=== PATIENT | female | born 1945 | race American Indian/Alaskan Native ===

== ENCOUNTER 2020-07-16 14:05 | Inpatient (IN) | payer MEDICARE ==
[2020-07-16] MEDS ORDERED: LORazepam 2 MG/ML VIAL IV ONE (14:09)
[2020-07-16] MEDS ORDERED: MAGNESIUM SULFATE 2 GM/50 ML BAG IV ONE (14:09)
[2020-07-16] MEDS ORDERED: FUROSEMIDE 40 MG/4 ML INJ IV ONE (14:09)
--- NOTE | 2020-07-16 14:09 | Emergency Department Report ---
ED Shortness of Breath HPI - General Stated Complaint: HOWARD Time Seen by Provider: 07/16/20 14:05 Source: patient, EMS Mode of arrival: Ambulatory Limitations: No Limitations - History of Present Illness Initial Comments: Chief complaint: "Please help me. I cannot breathe." HPI: This is a female with history of diabetes mellitus, CHF, asthma, coronary artery disease status post CABG, above normal BMI who presents with severe shortness of breath and productive cough which began 2 days ago. Patient received 5 mg albuterol via EMS. She has severe shortness of breath. She d enies cough. She requires 4 L nasal cannula at home. Patient would not tolerate CPAP. Patient lives with her daughters. She did not receive a Covid vaccine. She did not have COVID 19 infection. She denies recent hospitalization. MD Complaint: shortness of breath -: Gradual, This morning Severity: severe Consistency: constant Improves With: nothing Worsens With: nothing Known History Of: asthma, congestive heart failure Associated Symptoms: denies other symptoms Treatments Prior to Arrival: oxygen, bronchodilator (Albuterol 5 mg) - Related Data Home Oxygen Therapy: Yes Home Oxygen Amount: 4 Liters Allergies Allergy/AdvReac Type Severity Reaction Status Date / Time azithromycin Allergy Unknown Verified 07/16/20 14:10 codeine Allergy Unknown Verified 07/16/20 14:10 Sulfa (Sulfonamide Allergy Unknown Verified 07/16/20 14:11 Antibiotics) ED Review of Systems ROS: Stated complaint: HOWARD Other details as noted in HPI Comment: All other systems reviewed and negative Constitutional: denies: chills, fever Respiratory: shortness of breath. denies: cough, wheezing Cardiovascular: denies: chest pain Gastrointestinal: denies: abdominal pain, nausea, vomiting Neurological: denies: headache ED Past Medical Hx - Past Medical History Previous Medical History?: Yes Hx Hypertension: Yes Hx Congestive Heart Failure: Yes Hx Diabetes: Yes Hx Asthma: Yes - Surgical History Past Surgical History?: Yes Hx Open Heart Surgery: Yes - Family History Family history: hypertension - Social History Smoking Status: Never Smoker Substance Use Type: None ED Physical Exam - General General appearance: alert, anxious, in distress, other (Accessory muscle use, obese habitus, wet productive cough, patient coughed upd dark thick brown sputum ) - Head Head exam: Present: atraumatic, normocephalic - Eye Eye exam: Present: normal appearance - ENT ENT exam: Present: mucous membranes moist - Neck Neck exam: Present: normal inspection - Respiratory Respiratory exam: Present: rales, rhonchi, accessory muscle use, decreased breath sounds. Absent: respiratory distress, wheezes, stridor, prolonged expiratory - Cardiovascular Cardiovascular Exam: Present: normal rhythm, tachycardia, normal heart sounds. Absent: systolic murmur, diastolic murmur, rubs, gallop - GI/Abdominal GI/Abdominal exam: Present: soft, normal bowel sounds. Absent: distended, tenderness, guarding, rebound - Extremities Exam Extremities exam: Present: pedal edema, other (Both legs wrapped with bandage Boris dressing from knee to toes) - Neurological Exam Neurological exam: Present: alert, oriented X3 - Psychiatric Psychiatric exam: Present: agitated, anxious - Skin Skin exam: Present: warm, dry, intact, normal color. Absent: rash ED Course Vital Signs 07/16/20 07/16/20 14:31 16:00 Temperature 100 F H Pulse Rate 139 H 115 H Respiratory 20 25 H Rate Blood Pressure 131/100 O2 Sat by Pulse 100 99 Oximetry - Reevaluation(s) Reevaluation #1: 07/16/20 15:47 Nurse informed me that patient is admitted respiratory acidosis hypercapnia. I convince patient to allow BiPAP placement. She agreed. She is much more calm and less anxious actually sleeping after Ativan. However she is easily arousable. Reevaluation #2: 07/16/20 15:56 I assisted with application of noninvasive positive pressure ventilation. Discussed settings with respiratory therapist. - ABG Interpretation Ph: 7.3 PCO2: 59 PO2: 163 Interpretation: respiratory acidosis ED Medical Decision Making - Lab Data Result diagrams: 07/16/20 15:21 07/16/20 15:21 - EKG Data -: EKG Interpreted by Me EKG shows normal: sinus rhythm, axis, intervals, QRS complexes Rate: tachycardia - EKG Data Interpretation: nonspecific ST-T wave mili 07/16/20 14:54 EKG obtained 1405 EKG interpreted by me Sinus tachycardia rate 145 bpm normal axis normal QTC nonspecific T wave pattern upsloping ST depression in inferior leads - Radiology Data Radiology results: report reviewed Patient Name: RAFFI HEATON Gender: Female Date of : 1945 Home Phone: Referring Provider: STEPHANIE LINNETTA Organization: [facility] Accession Number: [id number] Requested Date: July 16, 2020 14:09 Report Status: Final Requested Procedure: 1 Procedure Description: XR chest 1V ap Modality: XR Findings Reporting MD: Emeterio Ruiz Dictation Time: July 16, 2020 14:07 Principal Technical Specialist: Not available [employer] Date: CHEST 1 VIEW 07/16/2020 2:15 PM INDICATION / CLINICAL INFORMATION: severe dyspnea hx of CHF asthma. COMPARISON: None available. FINDINGS: SUPPORT DEVICES: None. HEART / MEDIASTINUM: Cardiomegaly. LUNGS / PLEURA: There is central vascular congestion and mild interstitial prominence. No pneumothorax. ADDITIONAL FINDINGS: No significant additional findings. IMPRESSION: 1. Cardiomegaly with central vascular congestion and mild interstitial prominence just above congestive failure. Signer Name: Emeterio Ruiz MD Signed: 07/16/2020 2:07 PM Workstation Name: [facility] - Medical Decision Making Acute respiratory failure with fever productive cough. Differential diagnosis includes bacterial pneumonia versus atypical pneumonia considering pandemic organism COVID-19. Patient received ceftriaxone. Macrolide held due to azithromycin allergy. Patient received Decadron anticipating or suspecting COVID-19 infection. Patient require noninvasive positive pressure change for hypercapnia. All Covid markers are elevated. Findings of acute heart failure include BNP, rales on exam, vascular congestion. Diuresis with furosemide initiated in emergency department. Considering patient's work of breathing, persistent tachycardia, elderly age severe obesity, patient is admitted to the ICU in guarded condition. Critical Care Time: Yes Critical care time in (mins) excluding proc time.: 40 Critical care attestation.: If time is entered above; I have spent that time in minutes in the direct care of this critically ill patient, excluding procedure time. 40 minutes of critical care time excluding procedures were used in the care of the patient. I came immediately to the bedside upon patient's arrival. I obtained history from EMS at the bedside. I discussed treatment plan with the [facility] team members. I reviewed electronic record. Respiratory therapist at the bedside administered 4 L nasal cannula. Patient refused noninvasive positive pressure ventilation therapy. Patient required multiple interventions and reassessments. ED Disposition Clinical Impression: Suspected COVID-19 virus infection, Community acquired bacterial pneumonia, Acute respiratory failure with hypercapnia, Acute systolic heart failure Disposition: DC-09 OP ADMIT IP TO THIS HOSP Is pt being admited?: Yes Does the pt Need Aspirin: No Condition: Fair Referrals: ALEXX MIDDLETON MD [Primary Care Provider] - 3-5 Days
[2020-07-16] MEDS ORDERED: dexAMETHasone 20 MG/5 ML VIAL IV ONE (14:13)
[2020-07-16] MEDS ORDERED: ACETAMINOPHEN 500 MG TAB PO ONE (14:14)
[2020-07-16] MEDS ORDERED: cefTRIAXone/NS 1 GM/50 ML 1 GM/50 ML BAG IV ONE (14:23)
--- NOTE | 2020-07-16 15:11 | XRay Report ---
CHEST 1 VIEW 07/16/2020 2:15 PM INDICATION / CLINICAL INFORMATION: severe dyspnea hx of CHF asthma. COMPARISON: None available. FINDINGS: SUPPORT DEVICES: None. HEART / MEDIASTINUM: Cardiomegaly. LUNGS / PLEURA: There is central vascular congestion and mild interstitial prominence. No pneumothora x. ADDITIONAL FINDINGS: No significant additional findings. IMPRESSION: 1. Cardiomegaly with central vascular congestion and mild interstitial prominence just above congesti ve failure. Signer Name: Emeterio Ruiz MD Signed: 07/16/2020 3:07 PM Workstation Name: [id number]
[2020-07-16 15:42] LABS: Basophils # (Auto) 0.1 K/mm3 (0.0-0.1); Basophils % (Auto) 0.6 % (0.0-1.8); Eosinophils # (Auto) 0.3 K/mm3 (0.0-0.4); Eosinophils % (Auto) 2.7 % (0.0-4.3); Hematocrit 37.7 % (30.3-42.9); Hemoglobin 12.4 gm/dl (10.1-14.3); Lymphocytes # (Auto) 0.9 K/mm3 (1.2-5.4); Lymphocytes % (Auto) 8.1 % (13.4-35.0); Mean Corpuscular HGB Conc 33 % (30-34); Mean Corpuscular Volume 89 fl (79-97); Monocytes % (Auto) 8.9 % (0.0-7.3); Platelet Count 178 K/mm3 (140-440); Red Blood Count 4.26 M/mm3 (3.65-5.03); Red Cell Distribution Width 15.7 % (13.2-15.2)
[2020-07-16 16:09] LABS: Albumin 3.8 g/dL (3.9-5)
[2020-07-16 16:20] LABS: Chol/HDL Ratio 3.82 %
[2020-07-16] MEDS ORDERED: IPRATROPIUM/ALBUTEROL SULFATE 3 ML AMPUL.NEB IH ONE (21:42)
[2020-07-16] MEDS ORDERED: ONDANSETRON 4 MG/2 ML INJ IV PRN (21:51)
[2020-07-16] MEDS ORDERED: ACETAMINOPHEN 325 MG TAB PO PRN (21:51)
[2020-07-16] MEDS ORDERED: MORPHINE 2 MG/1 ML INJ IV PRN (21:51)
[2020-07-16] MEDS ORDERED: METOCLOPRAMIDE 10 MG/2 ML INJ IV PRN (21:51)
[2020-07-16] MEDS ORDERED: IPRATROPIUM/ALBUTEROL SULFATE 3 ML AMPUL.NEB IH PRN (21:55)
[2020-07-16] MEDS ORDERED: SODIUM CHLORIDE 0.9% 1000 ML 1,000 ML IV SCH (22:00)
[2020-07-16] MEDS ORDERED: ALBUTEROL 2.5 MG/3 ML NEBU IH PRN (22:07)
[2020-07-16] MEDS: FAMOTIDINE 20 MG/2 ML INJ IV SCH (22:15)
[2020-07-16] MEDS: methylPREDNISolone Sod Succinate 125 MG/2 ML INJ IV SCH (22:36)
[2020-07-17] MEDS: HYDROmorphone 1 MG/1 ML INJ IV PRN ×2 (02:35→22:28)
[2020-07-17] MEDS: methylPREDNISolone Sod Succinate 125 MG/2 ML INJ IV SCH ×3 (05:24→22:02)
--- NOTE | 2020-07-17 06:30 | History and Physical Report ---
History of Present Illness Date of examination: 07/16/20 Date of admission: 07/16/20 19:47 Chief complaint: Increasing shortness of breath for 2 days History of present illness: 74-year-old female with hypertension, type 2 diabetes, coronary artery disease, CHF, s/p CABG and morbid obesity presents with increasing shortness of breath for the last 2 days. Patient was brought in by EMS was given nebulizer treatments in the emergency transport. Patient denies cough. Patient is normally on 4 L nasal cannula oxygen at home. Refusing CPAP by EMS. Patient has also fev er. Did not have Covid vaccine or Covid infection. Lives with her daughters. Patient also wheezing. No exacerbating or relieving factors. Patient also has a small sacral wound in the sacral region and the left foot. Low-grade fever present. Home medications are not listed. - Past Medical History Previous Medical History?: Yes --Hypertension: Yes --Congestive Heart Failure: Yes --Diabetes: Yes --Asthma: Yes - Surgical History Past Surgical History?: Yes --Open Heart Surgery: Yes - Family History --hypertension - Social History Smoking Status: Never Smoker Substance Use Type: None Review of Systems ROS: Stated complaint: HOWARD Other details as noted in HPI Comment: All other systems reviewed and negative Constitutional: denies: chills, fever Respiratory: shortness of breath. denies: cough, wheezing Cardiovascular: denies: chest pain Gastrointestinal: denies: abdominal pain, nausea, vomiting Neurological: denies: headache Medications and Allergies Allergies Allergy/AdvReac Type Severity Reaction Status Date / Time azithromycin Allergy Unknown Verified 07/16/20 14:10 codeine Allergy Unknown Verified 07/16/20 14:10 Sulfa (Sulfonamide Allergy Unknown Verified 07/16/20 14:11 Antibiotics) Active Meds: Active Medications Acetaminophen (Acetaminophen 325 Mg Tab) 650 mg PO Q4H PRN PRN Reason: Pain MILD(1-3)/Fever >100.5/LEE Albuterol (Albuterol 2.5 Mg/3 Ml Nebu) 2.5 mg IH Q3HRT PRN PRN Reason: Wheezing Albuterol/Ipratropium (Ipratropium/Albuterol Sulfate 3 Ml Ampul.Neb) 1 ampul IH QIDRT LISA Famotidine (Famotidine 20 Mg/2 Ml Inj) 20 mg IV BID LISA Last Admin: 07/16/20 22:15 Dose: 20 mg Documented by: Hydromorphone HCl (Hydromorphone 1 Mg/1 Ml Inj) 0.5 mg IV Q3H PRN PRN Reason: Pain , Severe (7-10) Last Admin: 07/17/20 02:35 Dose: 0.5 mg Documented by: Levofloxacin/Dextrose (Levaquin 750mg/150ml) 750 mg in 150 mls @ 100 mls/hr IV Q48H LISA; Protocol Last Admin: 07/16/20 22:15 Dose: 100 mls/hr Documented by: Sodium Chloride (Nacl 0.9% 1000 Ml) 1,000 mls @ 75 mls/hr IV DIRECT LISA Stop: 07/17/20 10:00 Last Admin: 07/16/20 22:14 Dose: 75 mls/hr Documented by: Methylprednisolone Sodium Succinate (Methylprednisolone Sod Succinate 125 Mg/2 Ml Inj) 80 mg IV Q8HR [facility] Last Admin: 07/17/20 05:24 Dose: 80 mg Documented by: Metoclopramide HCl (Metoclopramide 10 Mg/2 Ml Inj) 10 mg IV Q6H PRN PRN Reason: Nausea And Vomiting Morphine Sulfate (Morphine 2 Mg/1 Ml Inj) 2 mg IV Q4H PRN PRN Reason: Pain, Moderate (4-6) Last Admin: 07/16/20 22:22 Dose: 2 mg Documented by: Ondansetron HCl (Ondansetron 4 Mg/2 Ml Inj) 4 mg IV Q3H PRN PRN Reason: Nausea And Vomiting Sodium Chloride (Sodium Chloride 0.9% 10 Ml Flush Syringe) 10 ml IV BID [facility] Last Admin: 07/16/20 22:15 Dose: 10 ml Documented by: Sodium Chloride (Sodium Chloride 0.9% 10 Ml Flush Syringe) 10 ml IV PRN PRN PRN Reason: LINE FLUSH Exam - Constitutional Vitals: Temp Pulse Resp BP Pulse Ox 97.8 F 103 H 21 149/74 99 07/17/20 03:28 07/17/20 06:10 07/17/20 06:10 07/17/20 06:10 07/17/20 06:10 General appearance: Present: severe distress, well-nourished - EENT Eyes: Present: PERRL ENT: hearing intact, clear oral mucosa - Neck Neck: Present: supple, normal ROM - Respiratory Respiratory effort: normal Respiratory: bilateral: CTA, rhonchi, wheezing - Cardiovascular Heart rate: 100 Rhythm: regular Heart Sounds: Present: S1 & S2. Absent: rub, click - Extremities Extremities: pulses symmetrical, No edema, abnormal (Stage I sacral decubitus ulcer. Left foot ulcer) Extremity abnormal: other (Stage I sacral decubitus ulcer, left foot ulcer) Peripheral Pulses: within normal limits - Abdominal General gastrointestinal: Present: soft, non-tender, non-distended, normal bowel sounds Female genitourinary: Present: normal - Integumentary Integumentary: Present: clear, warm, dry - Musculoskeletal Musculoskeletal: gait normal, strength equal bilaterally - Psychiatric Psychiatric: appropriate mood/affect, intact judgment & insight - Neurologic Neurologic: CNII-XII intact, moves all extremities - Allied Health Allied health notes reviewed: nursing, case management HEART Score - HEART Score History: Moderately suspicious Age: > 65 Risk factors: > 3 risk factors or hx of atherosclerotic disease Troponin: Troponin T 0.089 ng/mL (0.00-0.029) H 07/16/20 15:21 - Critical Actions Critical Actions: 4-6 pts:12-16.6% risk of adverse cardiac event. Should be admitted Results - Labs CBC & Chem 7: 07/16/20 15:21 07/16/20 15:21 Labs: Laboratory Last Values WBC 11.6 K/mm3 (4.5-11.0) H 07/16/20 15:21 RBC 4.26 M/mm3 (3.65-5.03) 07/16/20 15:21 Hgb 12.4 gm/dl (10.1-14.3) 07/16/20 15:21 Hct 37.7 % (30.3-42.9) 07/16/20 15:21 MCV 89 fl (79-97) 07/16/20 15: MCH 29 pg (28-32) 07/16/20 15:21 MCHC 33 % (30-34) 07/16/20 15:21 RDW 15.7 % (13.2-15.2) H 07/16/20 15:21 Plt Count 178 K/mm3 (140-440) 07/16/20 15:21 Lymph % (Auto) 8.1 % (13.4-35.0) L 07/16/20 15:21 Ware % (Auto) 8.9 % (0.0-7.3) H 07/16/20 15:21 Eos % (Auto) 2.7 % (0.0-4.3) 07/16/20 15:21 Baso % (Auto) 0.6 % (0.0-1.8) 07/16/20 15:21 Lymph # (Auto) 0.9 K/mm3 (1.2-5.4) L 07/16/20 15:21 Ware # (Auto) 1.0 K/mm3 (0.0-0.8) H 07/16/20 15:21 Eos # (Auto) 0.3 K/mm3 (0.0-0.4) 07/16/20 15:21 Baso # (Auto) 0.1 K/mm3 (0.0-0.1) 07/16/20 15: Seg Neutrophils % 79.7 % (40.0-70.0) H 07/16/20 15:21 Seg Neutrophils # 9.2 K/mm3 (1.8-7.7) H 07/16/20 15:21 D-Dimer 1508.10 ng/mlDDU (0-234) H 07/16/20 15:21 ABG pH 7.283 (7.320-7.450) L 07/16/20 15:02 POC ABG pCO2 59.0 mmHg (32.0-48.0) H 07/16/20 15:02 POC ABG pO2 163.4 mmHg (83-108) H 07/16/20 15:02 POC ABG HCO3 27.3 07/16/20 15:02 ABG O2 Saturation 99.3 (0-100) 07/16/20 15:02 POC ABG Base Excess -0.4 07/16/20 15:02 ABG Hemoglobin 12.3 (12.0-17.5) 07/16/20 15:02 ABG Oxyhemoglobin 98.4 (94-98) H 07/16/20 15:02 ABG Methemoglobin 0.3 (0.0-1.5) 07/16/20 15:02 ABG Sodium 138.1 mmol/L (136.0-145.0) 07/16/20 15:02 ABG Potassium 3.6 mmol/L (3.40-4.50) 07/16/20 15:02 ABG Chloride 98.0 mmol/L (98-107) 07/16/20 15:02 ABG Glucose 240 mg/dL (65-95) H 07/16/20 15:02 Carboxyhemoglobin 0.6 (0.5-1.5) 07/16/20 15:02 FiO2 % 35.0 07/16/20 15:02 Sodium 139 mmol/L (137-145) 07/16/20 15:21 Potassium 4.4 mmol/L (3.6-5.0) 07/16/20 15:21 Chloride 96.8 mmol/L (98-107) L 07/16/20 15:21 Carbon Dioxide 22 mmol/L (22-30) 07/16/20 15:21 Anion Gap 25 mmol/L 07/16/20 15:21 BUN 16 mg/dL (7-17) 07/16/20 15:21 Creatinine 1.4 mg/dL (0.6-1.2) H 07/16/20 15:21 Estimated GFR 45 ml/min 07/16/20 15:21 BUN/Creatinine Ratio 11 % 07/16/20 15:21 Glucose 211 mg/dL (65-100) H 07/16/20 15:21 Glucose 223 mg/dL (65-100) H 07/16/20 15:21 POC Glucose 286 mg/dL (70-105) H 07/16/20 23:28 Calcium 9.0 mg/dL (8.4-10.2) 07/16/20 15:21 Ferritin 443.8 ng/mL (10.0-200.0) H 07/16/20 15:21 Ferritin 459.2 ng/mL (10.0-200.0) H 07/16/20 15:21 Total Bilirubin 0.50 mg/dL (0.1-1.2) 07/16/20 15:21 AST 80 units/L (5-40) H 07/16/20 15:21 ALT 55 units/L (7-56) 07/16/20 15:21 Alkaline Phosphatase 109 units/L (35-129) 07/16/20 15:21 Lactate Dehydrogenase 557 units/L (91-180) H 07/16/20 15:21 Troponin T 0.089 ng/mL (0.00-0.029) H 07/16/20 15:21 C-Reactive Protein 5.00 mg/dL (0.00-1.30) H 07/16/20 15:21 NT-Pro-B Natriuret Pep 904.1 pg/mL (0-900) H 07/16/20 15:21 Total Protein 8.2 g/dL (6.3-8.2) 07/16/20 15:21 Albumin 3.8 g/dL (3.9-5) L 07/16/20 15:21 Albumin/Globulin Ratio 0.9 % 07/16/20 15: Triglycerides 91 mg/dL (2-149) 07/16/20 15: Cholesterol 199 mg/dL (50-199) 07/16/20 15:21 LDL Cholesterol Direct 132 mg/dL (50-130) H 07/16/20 15: HDL Cholesterol 52 mg/dL (40-59) 07/16/20 15: Cholesterol/HDL Ratio 3.82 % 07/16/20 15:21 Arterial Blood Glucose 240 mg/dL (65-95) H 07/16/20 15:02 Arterial Blood Ionized Calcium 4.7 mg/dL (4.6-5.3) 07/16/20 15:02 Short CBC 07/16/20 Range/Units 15:21 WBC 11.6 H (4.5-11.0) K/mm3 Hgb 12.4 (10.1-14.3) gm/dl Hct 37.7 (30.3-42.9) % Plt Count 178 (140-440) K/mm3 BMP 07/16/20 07/16/20 15:21 15:21 Sodium 139 Potassium 4.4 Chloride 96.8 L Carbon Dioxide 22 BUN 16 Creatinine 1.4 H Glucose 211 H 223 H Calcium 9.0 Cardiac Enzymes 07/16/20 Range/Units 15:21 Troponin T 0.089 H (0.00-0.029) ng/mL Liver Function 07/16/20 Range/Units 15:21 Total Bilirubin 0.50 (0.1-1.2) mg/dL AST 80 H (5-40) units/L ALT 55 (7-56) units/L Alkaline Phosphatase 109 (35-129) units/L Albumin 3.8 L (3.9-5) g/dL Microbiology: Microbiology 07/16/20 15:21 Peripheral/Venous Blood Culture - Preliminary Culture in Progress 07/16/20 15:21 Peripheral/Venous Blood Culture - Preliminary Culture in Progress - Imaging and Cardiology Imaging and Cardiology: Chest x-ray Cardiomegaly with central vascular congestion Mild interstitial prominence just stable congestive failure Mayers/IV: Voiding Method External Female Catheter Assessment and Plan Assessment and plan: Critical care statement The high probability OF a clinically significant sudden or life-threatening deterioration of the cardiorespiratory system and endocrine system required my full and direct attention, intervention and postoperative management. The [facility] critical care time was 40 minutes. The time is in addition to time spent performing reported procedures but includes the followin: Data review and interpretation 2: Patient assessment and monitoring of vital signs 3: Documentation 4:: Medication orders and management Advance Directives: Yes (Full code) VTE prophylaxis?: Chemical Plan of care discussed with patient/family: Yes - Patient Problems (1) Acute respiratory failure with hypoxia and hypercapnia Current Visit: Yes Status: Acute Plan to address problem: Patient is hypoxic and hypercarbic. Patient is refusing CPAP but was convinced to keep the CPAP/BiPAP IV Solu-Medrol and IV antibiotics and duo nebs [id number] and as needed Intubation if necessary Pneumatic System Conveyor Operator consult requested by Dr. Amaral (2) SIRS (systemic inflammatory response syndrome) Current Visit: Yes Status: Acute Plan to address problem: Patient has fever tachypnea tachycardia. Consults systemic inflammatory response syndrome (3) COPD with exacerbation Current Visit: Yes Status: Acute Plan to address problem: IV steroids Solu-Medrol 80 mg every 8 hours IV antibiotics and duo nebs [id number] and as needed. Continue CPAP Intubation if necessary Pneumatic System Conveyor Operator consult requested (4) Hypertension Current Visit: Yes Status: Chronic Qualifiers: Hypertension type: essential hypertension Qualified Code(s): I10 - Essential (primary) hypertension Plan to address problem: No home medications. Initial blood pressure was 131/100 later the blood pressure was 128/75 We will trend the blood pressure and start antihypertensives as necessary (5) Suspected COVID-19 virus infection Current Visit: Yes Status: Acute Plan to address problem: Coronavirus PCR to be sent (6) Type II diabetes mellitus Current Visit: Yes Status: Chronic Qualifiers: Diabetes mellitus shelter insulin use: unspecified terminal operations supervisor insulin use status Plan to address problem: No home medications Check hemoglobin A1c Coverage for now We will call the family and find out the home medication (7) CHF (congestive heart failure) Current Visit: Yes Status: Acute Qualifiers: Heart failure type: combined systolic and diastolic Plan to address problem: BNP is in the 900s Echocardiogram Gentle hydration for 10 to 12 hours because of the ELMA (8) ELMA (acute kidney injury) Current Visit: Yes Status: Acute Plan to address problem: Secondary to vasomotor nephropathy Gentle hydration for 12 hours only Recheck the creatinine level Nephrology consult if necessary (9) Elevated troponin Current Visit: Yes Status: Acute Plan to address problem: Possible troponin leak We will get serial troponins Cardiology consult and echocardiogram requested for ejection fraction (10) DVT prophylaxis Current Visit: Yes Status: Acute Plan to address problem: On heparin and GI prophylaxis
[2020-07-17] MEDS ORDERED: IPRATROPIUM/ALBUTEROL SULFATE 3 ML AMPUL.NEB IH SCH (08:00)
[2020-07-17 08:34] LABS: Basophils % (Auto) 0.3 % (0.0-1.8); Eosinophils % (Auto) 0.1 % (0.0-4.3); Hematocrit 37.8 % (30.3-42.9); Hemoglobin 12.4 gm/dl (10.1-14.3); Lymphocytes # (Auto) 0.7 K/mm3 (1.2-5.4); Lymphocytes % (Auto) 7.1 % (13.4-35.0); Mean Corpuscular HGB Conc 33 % (30-34); Mean Corpuscular Volume 88 fl (79-97); Monocytes # (Auto) 0.4 K/mm3 (0.0-0.8); Monocytes % (Auto) 3.9 % (0.0-7.3); Platelet Count 204 K/mm3 (140-440); Red Blood Count 4.29 M/mm3 (3.65-5.03); Red Cell Distribution Width 15.7 % (13.2-15.2)
[2020-07-17] MEDS ORDERED: ALBUTEROL 2.5 MG/3 ML NEBU IH PRN (08:41)
[2020-07-17 08:50] LABS: Albumin 3.2 g/dL (3.9-5); Calcium 8.6 mg/dL (8.4-10.2)
[2020-07-17] MEDS: FAMOTIDINE 20 MG/2 ML INJ IV SCH ×2 (09:33→22:01)
--- NOTE | 2020-07-17 09:49 | Consultation ---
History of Present Illness - Reason for Consult Consult date: 07/17/20 acute renal failure Requesting physician: LOLA VICTOR - History of Present Illness 74-year-old female with hypertension, type 2 diabetes, coronary artery disease, CHF, s/p CABG and morbid obesity presents with increasing shortness of breath for the last 2 days. Patient was brought in by EMS was given nebulizer treatments in the emergency transport. Patient denies cough. Patient is normally on 4 L nasal cannula oxygen at home. Refusing CPAP by EMS. Patient has also fever. Did not have Covid vaccine or Covid infection. Lives with her daughters. Patient also wheezing. No exacerbating or relieving factors. Patient also has a small sacral wound in the sacral region and the left foot. Low-grade fever present. Patient is currently in the ICU. States that her shortness of breath is improving. Denies any nausea vomiting or diarrhea. Denies any previous knowledge of renal dysfunction. She does take diuretic at home for her congestive heart failure. Patient denies any significant nonsteroidal use. Past History Past Medical History: CAD, diabetes, heart failure, hypertension Past Surgical History: Other (History of coronary artery bypass surgery) Social history: other (Patient denies history of smoking) Family history: no significant family history Medications and Allergies Allergies Allergy/AdvReac Type Severity Reaction Status Date / Time azithromycin Allergy Unknown Verified 07/16/20 14:10 codeine Allergy Unknown Verified 07/16/20 14:10 Sulfa (Sulfonamide Allergy Unknown Verified 07/16/20 14:11 Antibiotics) Active Meds: Active Medications Acetaminophen (Acetaminophen 325 Mg Tab) 650 mg PO Q4H PRN PRN Reason: Pain MILD(1-3)/Fever >100.5/LEE Albuterol (Albuterol 2.5 Mg/3 Ml Nebu) 2.5 mg IH Q4HRT PRN PRN Reason: Wheezing Albuterol/Ipratropium (Ipratropium/Albuterol Sulfate 3 Ml Ampul.Neb) 1 ampul IH TIDRT LISA Arformoterol Tartrate (Arformoterol 15 Mcg/2 Ml Nebu) 15 mcg IH Q12HRT LISA Budesonide (Budesonide 0.5 Mg/2 Ml Nebu) 0.5 mg IH Q12HRT LISA Famotidine (Famotidine 20 Mg/2 Ml Inj) 20 mg IV BID [facility] Last Admin: 07/17/20 09:33 Dose: 20 mg Documented by: Hydromorphone HCl (Hydromorphone 1 Mg/1 Ml Inj) 0.5 mg IV Q3H PRN PRN Reason: Pain , Severe (7-10) Last Admin: 07/17/20 02:35 Dose: 0.5 mg Documented by: Sodium Chloride (Nacl 0.9% 1000 Ml) 1,000 mls @ 75 mls/hr IV DIRECT LISA Stop: 07/17/20 10:00 Last Admin: 07/16/20 22:14 Dose: 75 mls/hr Documented by: Levofloxacin/Dextrose (Levaquin 750mg/150ml) 750 mg in 150 mls @ 100 mls/hr IV Q48H [facility]; Protocol Insulin Human Lispro (Insulin Lispro 100 Unit/Ml) 0 unit SUB-Q ACHS LISA; Protocol Methylprednisolone Sodium Succinate (Methylprednisolone Sod Succinate 125 Mg/2 Ml Inj) 80 mg IV Q8HR [facility] Last Admin: 07/17/20 05:24 Dose: 80 mg Documented by: Metoclopramide HCl (Metoclopramide 10 Mg/2 Ml Inj) 10 mg IV Q6H PRN PRN Reason: Nausea And Vomiting Morphine Sulfate (Morphine 2 Mg/1 Ml Inj) 2 mg IV Q4H PRN PRN Reason: Pain, Moderate (4-6) Last Admin: 07/16/20 22:22 Dose: 2 mg Documented by: Ondansetron HCl (Ondansetron 4 Mg/2 Ml Inj) 4 mg IV Q3H PRN PRN Reason: Nausea And Vomiting Sodium Chloride (Sodium Chloride 0.9% 10 Ml Flush Syringe) 10 ml IV BID [facility] Last Admin: 07/17/20 09:35 Dose: 10 ml Documented by: Sodium Chloride (Sodium Chloride 0.9% 10 Ml Flush Syringe) 10 ml IV PRN PRN PRN Reason: LINE FLUSH Review of Systems All systems: negative (Negative except as noted above) Exam - Vital Signs Vital signs: Vital Signs Temp Pulse Resp BP Pulse Ox 100 F H 139 H 20 131/100 100 07/16/20 14:31 07/16/20 14:31 07/16/20 14:31 07/16/20 14:31 07/16/20 14:31 - General Appearance General appearance: well-developed, well-nourished, appears stated age, obese EENT: PERRL, mucous membranes moist Neck: Present: neck supple, trachea midline. Absent: JVD/HJR, Masses Respiratory: Wheezes (Bilateral wheezing) Heart: regular, normal heart rate Gastrointestinal: Present: normal, normoactive bowel sounds Integumentary: other (Dressing noted in both her lower extremity. 1+ edema. Wrinkling of skin noted.) Results - Lab Results 07/17/20 08:19 07/17/20 08:19 Most recent lab results ABG pH 7.283 (7.320-7.450) L 07/16/20 15:02 ABG O2 Saturation 99.3 (0-100) 07/16/20 15:02 Calcium 8.6 mg/dL (8.4-10.2) 07/17/20 08:19 Assessment and Plan Impression * Acute kidney injury * Hyperkalemia * Shortness of breath. Most likely secondary to CHF * Coronary artery disease. Status post bypass surgery * Hypertension * Diabetes * Morbid obesity Recommendations * Acute kidney injury most likely secondary to cardiorenal syndrome. She may h ave been component of ATN as well * Shall check a UA as well as a renal ultrasound * Check vasculitis work-up to rule out pulmonary renal syndrome as well * Medical treatment for hyperkalemia * avoid nephrotoxins * Monitor fluid status and electrolytes closely * No urgent indication for dialysis today * Diuretics as needed * Thank you very much for the consultation. Shall follow along with you
[2020-07-17] MEDS ORDERED: SODIUM POLYSTYRENE 15 GM/60 ML ORAL LIQD PO ONE (09:53)
--- NOTE | 2020-07-17 10:13 | Progress Note ---
Assessment and Plan Assessment and plan: 74-year-old female with hypertension, type 2 diabetes, coronary artery disease, CHF, s/p CABG and morbid obesity presents with increasing shortness of breath for the last 2 days. Patient was brought in by EMS was given nebulizer treatments in the emergency transport. Patient denies cough. Patient is normally on 4 L nasal cannula oxygen at home. Refusing CPAP by EMS. Patient has also fever. Did not have Covid vaccine or Covid infection. Lives with her daughters. Patient also wheezing. No exacerbating or relieving factors. Patient also has a small sacral wound in the sacral region and the left foot. Low-grade fever present. Home medications are not listed. 07/17: Patient has been weaned down to nasal cannula 2L. Pulmonary, cardiology and nephrology consulted nephrology input is noted. We will downgrade the patient to IMCU we will continue current work-up we will give a full dose of Lovenox while further explored VQ scan to evaluate for pulmonary embolism. Elevated troponin could be secondary to poor renal clearance due to worsening renal function versus a true NSTEMI will await cardiology evaluation although in the setting of congestive heart failure this may also be the reason. Patient did receive some Lasix in the ED. Will wean down steroid therapy at this time. Per cardiology - will obtain Echo, will also defer diuretics to them. Strict I's and O's. DM- Start on insulin, with high dose humlin sliding scale and Lantus at night Down grade to IMC. If VQ scan shows no pulmonary embolism we will downgrade to heparin subcu. Discussed with family. Wound care has been consulted to review bilateral lower extremity wounds. We will speak to daughter to obtain further medical records. (1) Acute respiratory failure with hypoxia and hypercapnia Current Visit: Yes Status: Acute Plan to address problem: Patient is hypoxic and hypercarbic. Patient is refusing CPAP but was convinced to keep the CPAP/BiPAP IV Solu-Medrol and IV antibiotics and duo nebs [id number] and as needed Intubation if necessary Insurance Claim Auditor consult requested by Dr. Amaral (2) SIRS (systemic inflammatory response syndrome) Current Visit: Yes Status: Acute Plan to address problem: Patient has fever tachypnea tachycardia. Consults systemic inflammatory response syndrome (3) COPD with exacerbation Current Visit: Yes Status: Acute Plan to address problem: IV steroids Solu-Medrol 80 mg every 8 hours IV antibiotics and duo nebs [id number] and as needed. Continue CPAP Intubation if necessary Insurance Claim Auditor consult requested (4) Hypertension Current Visit: Yes Status: Chronic Qualifiers: Hypertension type: essential hypertension Qualified Code(s): I10 - Essential (primary) hypertension Plan to address problem: No home medications. 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 insulin use: unspecified custodial insulin use status Plan to address problem: No home medications Check hemoglobin A1c Coverage for now We will call the family and find out the home medication (7) CHF (congestive heart failure) Current Visit: Yes Status: Acute Qualifiers: Heart failure type: combined systolic and diastolic Plan to address problem: BNP is in the 900s Echocardiogram Gentle hydration for 10 to 12 hours because of the ELMA (8) ELMA (acute kidney injury) Current Visit: Yes Status: Acute Plan to address problem: Secondary to vasomotor nephropathy Gentle hydration for 12 hours only Recheck the creatinine level Nephrology consult if necessary (9) Elevated troponin Current Visit: Yes Status: Acute Plan to address problem: Possible troponin leak We will get serial troponins Cardiology consult and echocardiogram requested for ejection fraction (10) DVT prophylaxis Current Visit: Yes Status: Acute Plan to address problem: On heparin and GI prophylaxis History Interval history: Patient seen and examined this morning sitting up reports improvement in s hortness of breath. She does have 2 bilateral dressing of the lower extremity could not give me adequate reason why she has them although states that she had recent surgery on her toes and also also wound. Hospitalist Physical - Physical exam Narrative exam: General appearance: Present: mild distress, well-nourished, morbidly obese - EENT Eyes: Present: PERRL ENT: hearing intact, clear oral mucosa - Neck Neck: Present: supple, normal ROM - Respiratory Respiratory effort: mildly labored Respiratory: bilateral: mild rhonchi, wheezing - Cardiovascular Heart rate: 100 Rhythm: regular Heart Sounds: Present: S1 & S2. Absent: rub, click - Extremities Extremities: pulses symmetrical, No edema, abnormal (Stage I sacral decubitus ulcer. Left foot ulcer) Extremity abnormal: other (Stage I sacral decubitus ulcer, left foot ulcer) Peripheral Pulses: within normal limits - Abdominal General gastrointestinal: Present: soft, non-tender, non-distended, normal bowel sounds Female genitourinary: Present: normal - Integumentary Integumentary: Present: Skin hypopigmentation, dressing bilateral lower ext, (awaiting for take down of dressing- see nursing pictures) warm, dry - Musculoskeletal Musculoskeletal: gait normal, strength equal bilaterally - Psychiatric Psychiatric: appropriate mood/affect, intact judgment & insight - Neurologic Neurologic: CNII-XII intact, moves all extremities - Allied Health Allied health notes reviewed: nursing, case management - Constitutional Vitals: Temp Pulse Resp BP Pulse Ox 97.9 F 104 H 21 126/68 99 07/17/20 08:00 07/17/20 10:00 07/17/20 10:00 07/17/20 10:00 07/17/20 10:00 General appearance: Present: severe distress, well-nourished HEART Score - HEART Score Age: > 65 Risk factors: > 3 risk factors or hx of atherosclerotic disease Troponin: Troponin T 0.369 ng/mL (0.00-0.029) H* D 07/17/20 08:19 - Critical Actions Critical Actions: 4-6 pts:12-16.6% risk of adverse cardiac event. Should be admitted Results - Labs CBC & Chem 7: 07/17/20 08:19 07/17/20 13:50 Labs: Laboratory Last Values WBC 10.4 K/mm3 (4.5-11.0) 07/17/20 08:19 RBC 4.29 M/mm3 (3.65-5.03) 07/17/20 08:19 Hgb 12.4 gm/dl (10.1-14.3) 07/17/20 08:19 Hct 37.8 % (30.3-42.9) 07/17/20 08:19 MCV 88 fl (79-97) 07/17/20 08:19 MCH 29 pg (28-32) 07/17/20 08:19 MCHC 33 % (30-34) 07/17/20 08:19 RDW 15.7 % (13.2-15.2) H 07/17/20 08:19 Plt Count 204 K/mm3 (140-440) 07/17/20 08:19 Lymph % (Auto) 7.1 % (13.4-35.0) L 07/17/20 08:19 Edgar % (Auto) 3.9 % (0.0-7.3) 07/17/20 08:19 Eos % (Auto) 0.1 % (0.0-4.3) 07/17/20 08:19 Baso % (Auto) 0.3 % (0.0-1.8) 07/17/20 08:19 Lymph # (Auto) 0.7 K/mm3 (1.2-5.4) L 07/17/20 08:19 Edgar # (Auto) 0.4 K/mm3 (0.0-0.8) 07/17/20 08:19 Eos # (Auto) 0.0 K/mm3 (0.0-0.4) 07/17/20 08:19 Baso # (Auto) 0.0 K/mm3 (0.0-0.1) 07/17/20 08:19 Seg Neutrophils % 88.6 % (40.0-70.0) H 07/17/20 08:19 Seg Neutrophils # 9.2 K/mm3 (1.8-7.7) H 07/17/20 08:19 D-Dimer 1508.10 ng/mlDDU (0-234) H 07/16/20 15:21 ABG pH 7.283 (7.320-7.450) L 07/16/20 15:02 POC ABG pCO2 59.0 mmHg (32.0-48.0) H 07/16/20 15:02 POC ABG pO2 163.4 mmHg (83-108) H 07/16/20 15:02 POC ABG HCO3 27.3 07/16/20 15:02 ABG O2 Saturation 99.3 (0-100) 07/16/20 15:02 POC ABG Base Excess -0.4 07/16/20 15:02 ABG Hemoglobin 12.3 (12.0-17.5) 07/16/20 15:02 ABG Oxyhemoglobin 98.4 (94-98) H 07/16/20 15:02 ABG Methemoglobin 0.3 (0.0-1.5) 07/16/20 15:02 ABG Sodium 138.1 mmol/L (136.0-145.0) 07/16/20 15:02 ABG Potassium 3.6 mmol/L (3.40-4.50) 07/16/20 15:02 ABG Chloride 98.0 mmol/L (98-107) 07/16/20 15:02 ABG Glucose 240 mg/dL (65-95) H 07/16/20 15:02 Carboxyhemoglobin 0.6 (0.5-1.5) 07/16/20 15:02 FiO2 % 35.0 07/16/20 15:02 Sodium 136 mmol/L (137-145) L 07/17/20 08:19 Potassium 5.9 mmol/L (3.6-5.0) H D 07/17/20 08:19 Chloride 96.9 mmol/L (98-107) L 07/17/20 08:19 Carbon Dioxide 21 mmol/L (22-30) L 07/17/20 08:19 Anion Gap 24 mmol/L 07/17/20 08:19 BUN 28 mg/dL (7-17) H 07/17/20 08:19 Creatinine 1.8 mg/dL (0.6-1.2) H 07/17/20 08:19 Estimated GFR 33 ml/min 07/17/20 08:19 BUN/Creatinine Ratio 16 % 07/17/20 08:19 Glucose 350 mg/dL (65-100) H 07/17/20 08:19 POC Glucose 306 mg/dL (70-105) H 07/17/20 08:33 Hemoglobin A1c 7.5 % (4-6) H 07/17/20 08:19 Calcium 8.6 mg/dL (8.4-10.2) 07/17/20 08:19 Ferritin 443.8 ng/mL (10.0-200.0) H 07/16/20 15:21 Ferritin 459.2 ng/mL (10.0-200.0) H 07/16/20 15:21 Total Bilirubin 0.30 mg/dL (0.1-1.2) 07/17/20 08:19 AST 57 units/L (5-40) H 07/17/20 08:19 ALT 49 units/L (7-56) 07/17/20 08:19 Alkaline Phosphatase 97 units/L (35-129) 07/17/20 08:19 Lactate Dehydrogenase 557 units/L (91-180) H 07/16/20 15:21 Troponin T 0.369 ng/mL (0.00-0.029) H* D 07/17/20 08:19 C-Reactive Protein 5.00 mg/dL (0.00-1.30) H 07/16/20 15:21 NT-Pro-B Natriuret Pep 904.1 pg/mL (0-900) H 07/16/20 15:21 Total Protein 8.3 g/dL (6.3-8.2) H 07/17/20 08:19 Albumin 3.2 g/dL (3.9-5) L 07/17/20 08:19 Albumin/Globulin Ratio 0.6 % 07/17/20 08:19 Triglycerides 91 mg/dL (2-149) 07/16/20 15:21 Cholesterol 199 mg/dL (50-199) 07/16/20 15:21 LDL Cholesterol Direct 132 mg/dL (50-130) H 07/16/20 15:21 HDL Cholesterol 52 mg/dL (40-59) 07/16/20 15:21 Cholesterol/HDL Ratio 3.82 % 07/16/20 15:21 Procalcitonin 0.08 ng/mL (<0.15) 07/16/20 15:21 Arterial Blood Glucose 240 mg/dL (65-95) H 07/16/20 15:02 Arterial Blood Ionized Calcium 4.7 mg/dL (4.6-5.3) 07/16/20 15:02 Microbiology: Microbiology 07/16/20 15:21 Peripheral/Venous Blood Culture - Preliminary Culture in Progress 07/16/20 15:21 Peripheral/Venous Blood Culture - Preliminary Culture in Progress Mayers/IV: Voiding Method External Female Catheter Active Medications - Current Medications Current Medications: Generic Name Dose Route Start Last Admin Trade Name Freq PRN Reason Stop Dose Admin Acetaminophen 650 mg 07/16/20 21:51 Acetaminophen 325 Mg Tab PO Q4H PRN Pain MILD(1-3)/Fever >100.5/LEE Albuterol 2.5 mg 07/17/20 08:41 Albuterol 2.5 Mg/3 Ml Nebu IH Q4HRT PRN Wheezing Albuterol/Ipratropium 1 ampul 07/17/20 14:00 Ipratropium/Albuterol Sulfate 3 Ml Ampul.Neb IH TIDRT LISA Arformoterol Tartrate 15 mcg 07/17/20 20:00 Arformoterol 15 Mcg/2 Ml Nebu IH Q12HRT LISA Budesonide 0.5 mg 07/17/20 20:00 Budesonide 0.5 Mg/2 Ml Nebu IH Q12HRT LISA Famotidine 20 mg 07/16/20 22:00 07/17/20 09:33 Famotidine 20 Mg/2 Ml Inj IV 20 mg BID LISA Administration Hydromorphone HCl 0.5 mg 07/16/20 21:51 07/17/20 02:35 Hydromorphone 1 Mg/1 Ml Inj IV 0.5 mg Q3H PRN Administration Pain , Severe (7-10) Levofloxacin/Dextrose 750 mg in 150 mls @ 100 mls/hr 07/18/20 22:00 Levaquin 750mg/150ml IV Q48H [facility] Protocol Insulin Human Lispro 0 unit 07/17/20 11:30 Insulin Lispro 100 Unit/Ml SUB-Q ACHS [facility] Protocol Methylprednisolone Sodium Succinate 80 mg 07/16/20 23:00 07/17/20 05:24 Methylprednisolone Sod Succinate 125 Mg/2 Ml Inj IV 80 mg Q8HR LISA Administration Metoclopramide HCl 10 mg 07/16/20 21:51 Metoclopramide 10 Mg/2 Ml Inj IV Q6H PRN Nausea And Vomiting Morphine Sulfate 2 mg 07/16/20 21:51 07/16/20 22:22 Morphine 2 Mg/1 Ml Inj IV 2 mg Q4H PRN Administration Pain, Moderate (4-6) Ondansetron HCl 4 mg 07/16/20 21:51 Ondansetron 4 Mg/2 Ml Inj IV Q3H PRN Nausea And Vomiting Sodium Chloride 10 ml 07/16/20 22:00 07/17/20 09:35 Sodium Chloride 0.9% 10 Ml Flush Syringe IV 10 ml BID LISA Administration Sodium Chloride 10 ml 07/16/20 21:51 Sodium Chloride 0.9% 10 Ml Flush Syringe IV PRN PRN LINE FLUSH
[2020-07-17] MEDS ORDERED: ENOXAPARIN 150 MG/1 ML INJ SUB-Q ONE (11:00)
--- NOTE | 2020-07-17 11:36 | Consultation ---
History of Present Illness Consult date: 07/17/20 History of present illness: 74-year-old female with hypertension, type 2 diabetes, coronary artery disease, CHF, s/p CABG and morbid obesity presents with increasing shortness of breath for the last 2 days. Patient was brought in by EMS was given nebulizer treatments in the emergency transport. Patient denies cough. Patient is normally on 4 L nasal cannula oxygen at home. Refusing CPAP by EMS. Patient has also fever. Did not have Covid vaccine or Covid infection. Lives with her daughters. Patient also wheezing. No exacerbating or relieving factors. Patient also has a small sacral wound in the sacral region and the left foot. Low-grade fever present. She required bipap briefly and now has been weaned to nasal cannula. About to get bedside echo Past History Past Medical History: CAD, diabetes, heart failure, hypertension Past Surgical History: Other (History of coronary artery bypass surgery) Social history: other (Patient denies history of smoking) Family history: no significant family history Medications and Allergies Allergies Allergy/AdvReac Type Severity Reaction Status Date / Time azithromycin Allergy Unknown Verified 07/16/20 14:10 codeine Allergy Unknown Verified 07/16/20 14:10 Sulfa (Sulfonamide Allergy Unknown Verified 07/16/20 14:11 Antibiotics) Home Medications Medication Instructions Recorded Confirmed Last Taken Type Furosemide [Lasix] 40 tab PO BID 07/17/20 07/17/20 07/15/20 History HCTZ 25 tab PO DAILY 07/17/20 07/17/20 07/15/20 History Lyrica 50 mg PO TID 07/17/20 07/17/20 07/15/20 History Rosuvastatin Calcium 40 mg PO HS 07/17/20 07/17/20 07/15/20 History cloNIDine-TTS PATCH [Catapres-Tts 0.1 mg TRANSDERMA TID 07/17/20 07/17/20 Unknown History 0.1MG Patch] hydrALAZINE 25 tab PO Q8H 07/17/20 07/17/20 07/16/20 History Active Meds: Active Medications Acetaminophen (Acetaminophen 325 Mg Tab) 650 mg PO Q4H PRN PRN Reason: Pain MILD(1-3)/Fever >100.5/LEE Albuterol (Albuterol 2.5 Mg/3 Ml Nebu) 2.5 mg IH Q4HRT PRN PRN Reason: Wheezing Albuterol/Ipratropium (Ipratropium/Albuterol Sulfate 3 Ml Ampul.Neb) 1 ampul IH TIDRT [facility] Arformoterol Tartrate (Arformoterol 15 Mcg/2 Ml Nebu) 15 mcg IH Q12HRT [facility] Budesonide (Budesonide 0.5 Mg/2 Ml Nebu) 0.5 mg IH Q12HRT [facility] Famotidine (Famotidine 20 Mg/2 Ml Inj) 20 mg IV BID [facility] Last Admin: 07/17/20 09:33 Dose: 20 mg Documented by: Hydromorphone HCl (Hydromorphone 1 Mg/1 Ml Inj) 0.5 mg IV Q3H PRN PRN Reason: Pain , Severe (7-10) Last Admin: 07/17/20 02:35 Dose: 0.5 mg Documented by: Levofloxacin/Dextrose (Levaquin 750mg/150ml) 750 mg in 150 mls @ 100 mls/hr IV Q48H [facility]; Protocol Insulin Glargine (Insulin Glargine 100 Units/Ml) 20 units SUB-Q QHS [facility] Insulin Human Lispro (Insulin Lispro 100 Unit/Ml) 0 unit SUB-Q ACHS [facility]; Protocol Methylprednisolone Sodium Succinate (Methylprednisolone Sod Succinate 125 Mg/2 Ml Inj) 60 mg IV Q8HR [facility] Metoclopramide HCl (Metoclopramide 10 Mg/2 Ml Inj) 10 mg IV Q6H PRN PRN Reason: Nausea And Vomiting Morphine Sulfate (Morphine 2 Mg/1 Ml Inj) 2 mg IV Q4H PRN PRN Reason: Pain, Moderate (4-6) Last Admin: 07/16/20 22:22 Dose: 2 mg Documented by: Ondansetron HCl (Ondansetron 4 Mg/2 Ml Inj) 4 mg IV Q3H PRN PRN Reason: Nausea And Vomiting Sodium Chloride (Sodium Chloride 0.9% 10 Ml Flush Syringe) 10 ml IV BID [facility] Last Admin: 07/17/20 09:35 Dose: 10 ml Documented by: Sodium Chloride (Sodium Chloride 0.9% 10 Ml Flush Syringe) 10 ml IV PRN PRN PRN Reason: LINE FLUSH Physical Examination Vital signs: Vital Signs Temp Pulse Resp BP Pulse Ox 100 F H 139 H 20 131/100 100 07/16/20 14:31 07/16/20 14:31 07/16/20 14:31 07/16/20 14:31 07/16/20 14:31 General appearance: no acute distress, alert, other (morbidly obese) Eyes: non-icteric Effort: normal Ascultation: Bilateral: diminished breath sounds, rales Percussion: Bilateral: not dull Tactile fremitus: Bilateral: normal Cardiovascular: regular rate and rhythm Gastrointestinal: normoactive bowel sounds, soft Results - Laboratory Findings CBC and BMP: 07/17/20 08:19 07/17/20 08:19 ABG ABG pH 7.283 (7.320-7.450) L 07/16/20 15:02 POC ABG pCO2 59.0 mmHg (32.0-48.0) H 07/16/20 15:02 POC ABG pO2 163.4 mmHg (83-108) H 07/16/20 15:02 POC ABG HCO3 27.3 07/16/20 15:02 ABG O2 Saturation 99.3 (0-100) 07/16/20 15:02 PT/INR, D-dimer D-Dimer 1508.10 ng/mlDDU (0-234) H 07/16/20 15:21 Abnormal lab findings: Abnormal Labs 07/16/20 07/16/20 07/16/20 15:02 15:21 15:21 WBC 11.6 H RDW 15.7 H Lymph % (Auto) 8.1 L [place] % (Auto) 8.9 H Lymph # (Auto) 0.9 L [place] # (Auto) 1.0 H Seg Neutrophils % 79.7 H Seg Neutrophils # 9.2 H D-Dimer ABG pH 7.283 L POC ABG pCO2 59.0 H POC ABG pO2 163.4 H ABG Oxyhemoglobin 98.4 H ABG Glucose 240 H Sodium Potassium Chloride 96.8 L Carbon Dioxide BUN Creatinine 1.4 H Glucose 211 H POC Glucose Hemoglobin A1c Ferritin AST 80 H Lactate Dehydrogenase Troponin T 0.089 H C-Reactive Protein NT-Pro-B Natriuret Pep Total Protein Albumin 3.8 L LDL Cholesterol Direct 132 H Arterial Blood Glucose 240 H 07/16/20 07/16/20 07/16/20 15:21 15:21 15:21 WBC RDW Lymph % (Auto) [place] % (Auto) Lymph # (Auto) [place] # (Auto) Seg Neutrophils % Seg Neutrophils # D-Dimer 1508.10 H ABG pH POC ABG pCO2 POC ABG pO2 ABG Oxyhemoglobin ABG Glucose Sodium Potassium Chloride Carbon Dioxide BUN Creatinine Glucose POC Glucose Hemoglobin A1c Ferritin 459.2 H AST Lactate Dehydrogenase Troponin T C-Reactive Protein NT-Pro-B Natriuret Pep 904.1 H Total Protein Albumin LDL Cholesterol Direct Arterial Blood Glucose 07/16/20 07/16/20 07/16/20 15:21 15:21 23:28 WBC RDW Lymph % (Auto) [place] % (Auto) Lymph # (Auto) [place] # (Auto) Seg Neutrophils % Seg Neutrophils # D-Dimer ABG pH POC ABG pCO2 POC ABG pO2 ABG Oxyhemoglobin ABG Glucose Sodium Potassium Chloride Carbon Dioxide BUN Creatinine Glucose 223 H POC Glucose 286 H Hemoglobin A1c Ferritin 443.8 H AST Lactate Dehydrogenase 557 H Troponin T C-Reactive Protein 5.00 H NT-Pro-B Natriuret Pep Total Protein Albumin LDL Cholesterol Direct Arterial Blood Glucose 07/17/20 07/17/20 07/17/20 05:21 08:19 08:19 WBC RDW 15.7 H Lymph % (Auto) 7.1 L [place] % (Auto) Lymph # (Auto) 0.7 L [place] # (Auto) Seg Neutrophils % 88.6 H Seg Neutrophils # 9.2 H D-Dimer ABG pH POC ABG pCO2 POC ABG pO2 ABG Oxyhemoglobin ABG Glucose Sodium 136 L Potassium 5.9 H D Chloride 96.9 L Carbon Dioxide 21 L BUN 28 H Creatinine 1.8 H Glucose 350 H POC Glucose 306 H Hemoglobin A1c Ferritin AST 57 H Lactate Dehydrogenase Troponin T C-Reactive Protein NT-Pro-B Natriuret Pep Total Protein 8.3 H Albumin 3.2 L LDL Cholesterol Direct Arterial Blood Glucose 07/17/20 07/17/20 07/17/20 08:19 08:19 08:33 WBC RDW Lymph % (Auto) [place] % (Auto) Lymph # (Auto) [place] # (Auto) Seg Neutrophils % Seg Neutrophils # D-Dimer ABG pH POC ABG pCO2 POC ABG pO2 ABG Oxyhemoglobin ABG Glucose Sodium Potassium Chloride Carbon Dioxide BUN Creatinine Glucose POC Glucose 306 H Hemoglobin A1c 7.5 H Ferritin AST Lactate Dehydrogenase Troponin T 0.369 H* D C-Reactive Protein NT-Pro-B Natriuret Pep Total Protein Albumin LDL Cholesterol Direct Arterial Blood Glucose - Diagnostic Findings Chest x-ray: image reviewed (cardiomegaly with pulmonary vascular congestion) Assessment and Plan 74 y/o female with acute respiratory failure, concern for new onset heart failure. 1. Follow up echo 2. Bipap QHS, given patient body habitus, could have HANK 3. BP control 4. Monitor strict I/O
[2020-07-17] MEDS: INSULIN LISPRO 100 UNIT/ML SUB-Q SCH ×3 (12:14→22:00)
--- NOTE | 2020-07-17 12:29 | Consultation ---
History of Present Illness Consult date: 07/17/20 Consult reason: congestive heart failure History of present illness: The patient is a 74-year-old woman admitted to the hospital with shortness of breath, findings on presentation consistent with acute pulmonary edema. Chest x-ray showed cardiomegaly, prior coronary artery bypass, moderate severity interstitial edema. There was no chest pain, no palpitations and no syncope. The patient has an extensive cardiac history. In 2006 she states that she underwent a four-vessel coronary artery bypass at [place]. Since then, he has not maintained optimal outpatient cardiology follow-ups. As a result of her morbid obesity and chronic bilateral leg ulcers, she is essentially bedridden at home. She states that she gets home visits by a nurse practitioner but has not seen a medical services manager in years. Comorbidities include chronic hypertension and chronic diabetes. Currently, she is comfortable on bedrest in the ICU, shortness of breath relieved after initial hospital diuretic therapy. EKG was a sinus or multifocal atrial tachycardia at 146, old anterior myocardial infarction but no acute ST or T wave abnormalities. There was a mild increase in troponin level of 0.3, associated with a rising creatinine of 1.8. Past History Past Medical History: CAD, diabetes, heart failure, hypertension Past Surgical History: Other (History of coronary artery bypass surgery) Social history: other (Patient denies history of smoking) Family history: no significant family history Medications and Allergies Allergies Allergy/AdvReac Type Severity Reaction Status Date / Time azithromycin Allergy Unknown Verified 07/16/20 14:10 codeine Allergy Unknown Verified 07/16/20 14:10 Sulfa (Sulfonamide Allergy Unknown Verified 07/16/20 14:11 Antibiotics) Home Medications Medication Instructions Recorded Confirmed Last Taken Type Furosemide [Lasix] 40 tab PO BID 07/17/20 07/17/20 07/15/20 History HCTZ 25 tab PO DAILY 07/17/20 07/17/20 07/15/20 History Lyrica 50 mg PO TID 07/17/20 07/17/20 07/15/20 History Rosuvastatin Calcium 40 mg PO HS 07/17/20 07/17/20 07/15/20 History cloNIDine-TTS PATCH [Catapres-Tts 0.1 mg TRANSDERMA TID 07/17/20 07/17/20 Unknown History 0.1MG Patch] hydrALAZINE 25 tab PO Q8H 07/17/20 07/17/20 07/16/20 History Active Meds: Active Medications Acetaminophen (Acetaminophen 325 Mg Tab) 650 mg PO Q4H PRN PRN Reason: Pain MILD(1-3)/Fever >100.5/LEE Albuterol (Albuterol 2.5 Mg/3 Ml Nebu) 2.5 mg IH Q4HRT PRN PRN Reason: Wheezing Albuterol/Ipratropium (Ipratropium/Albuterol Sulfate 3 Ml Ampul.Neb) 1 ampul IH TIDRT [facility] Arformoterol Tartrate (Arformoterol 15 Mcg/2 Ml Nebu) 15 mcg IH Q12HRT [facility] Budesonide (Budesonide 0.5 Mg/2 Ml Nebu) 0.5 mg IH Q12HRT [facility] Famotidine (Famotidine 20 Mg/2 Ml Inj) 20 mg IV BID [facility] Last Admin: 07/17/20 09:33 Dose: 20 mg Documented by: Hydromorphone HCl (Hydromorphone 1 Mg/1 Ml Inj) 0.5 mg IV Q3H PRN PRN Reason: Pain , Severe (7-10) Last Admin: 07/17/20 02:35 Dose: 0.5 mg Documented by: Levofloxacin/Dextrose (Levaquin 750mg/150ml) 750 mg in 150 mls @ 100 mls/hr IV Q48H [facility]; Protocol Insulin Glargine (Insulin Glargine 100 Units/Ml) 20 units SUB-Q QHS [facility] Insulin Human Lispro (Insulin Lispro 100 Unit/Ml) 0 unit SUB-Q ACHS [facility]; Protocol Last Admin: 07/17/20 12:14 Dose: 8 unit Documented by: Methylprednisolone Sodium Succinate (Methylprednisolone Sod Succinate 125 Mg/2 Ml Inj) 60 mg IV Q8HR [facility] Metoclopramide HCl (Metoclopramide 10 Mg/2 Ml Inj) 10 mg IV Q6H PRN PRN Reason: Nausea And Vomiting Morphine Sulfate (Morphine 2 Mg/1 Ml Inj) 2 mg IV Q4H PRN PRN Reason: Pain, Moderate (4-6) Last Admin: 07/16/20 22:22 Dose: 2 mg Documented by: Ondansetron HCl (Ondansetron 4 Mg/2 Ml Inj) 4 mg IV Q3H PRN PRN Reason: Nausea And Vomiting Sodium Chloride (Sodium Chloride 0.9% 10 Ml Flush Syringe) 10 ml IV BID [facility] Last Admin: 07/17/20 09:35 Dose: 10 ml Documented by: Sodium Chloride (Sodium Chloride 0.9% 10 Ml Flush Syringe) 10 ml IV PRN PRN PRN Reason: LINE FLUSH Review of Systems Cardiovascular: orthopnea, edema, shortness of breath, no chest pain, no palpitations, no rapid/irregular heart beat, no syncope, no lightheadedness Physical Examination Vital Signs Temp Pulse Resp BP Pulse Ox 100 F H 139 H 20 131/100 100 07/16/20 14:31 07/16/20 14:31 07/16/20 14:31 07/16/20 14:31 07/16/20 14:31 General appearance: no acute distress, obese HEENT: Positive: PERRL Neck: Positive: neck supple Cardiac: Positive: Regular Rhythm Lungs: Positive: Decreased Breath Sounds Neuro: Positive: Grossly Intact Abdomen: Positive: Soft Female genitourinary: deferred Skin: Positive: Other (Vitiligo) Extremities: Present: +1 Edema Results 07/17/20 08:19 07/17/20 08:19 Cardiac Enzymes 07/16/20 07/16/20 07/17/20 Range/Units 15:21 15:21 08:19 AST 80 H 57 H (5-40) units/L Lactate Dehydrogenase 557 H (91-180) units/L Lipids 07/16/20 Range/Units 15:21 Triglycerides 91 (2-149) mg/dL Cholesterol 199 (50-199) mg/dL HDL Cholesterol 52 (40-59) mg/dL Cholesterol/HDL Ratio 3.82 % CBC 07/16/20 07/17/20 Range/Units 15:21 08:19 WBC 11.6 H 10.4 (4.5-11.0) K/mm3 RBC 4.26 4.29 (3.65-5.03) M/mm3 Hgb 12.4 12.4 (10.1-14.3) gm/dl Hct 37.7 37.8 (30.3-42.9) % Plt Count 178 204 (140-440) K/mm3 Lymph # (Auto) 0.9 L 0.7 L (1.2-5.4) K/mm3 [place] # (Auto) 1.0 H 0.4 (0.0-0.8) K/mm3 Eos # (Auto) 0.3 0.0 (0.0-0.4) K/mm3 Baso # (Auto) 0.1 0.0 (0.0-0.1) K/mm3 Comprehensive Metabolic Panel 07/16/20 07/16/20 07/17/20 Range/Units 15:21 15:21 08:19 Sodium 139 136 L (137-145) mmol/L Potassium 4.4 5.9 H D (3.6-5.0) mmol/L Chloride 96.8 L 96.9 L (98-107) mmol/L Carbon Dioxide 22 21 L (22-30) mmol/L BUN 16 28 H (7-17) mg/dL Creatinine 1.4 H 1.8 H (0.6-1.2) mg/dL Glucose 211 H 223 H 350 H (65-100) mg/dL Calcium 9.0 8.6 (8.4-10.2) mg/dL AST 80 H 57 H (5-40) units/L ALT 55 49 (7-56) units/L Alkaline Phosphatase 109 97 (35-129) units/L Total Protein 8.2 8.3 H (6.3-8.2) g/dL Albumin 3.8 L 3.2 L (3.9-5) g/dL EKG interpretations - Telemetry EKG Rhythm: Sinus Tachycardia Assessment and Plan - Patient Problems (1) Acute systolic heart failure Current Visit: Yes Status: Acute Plan to address problem: Patient has a history of coronary artery disease, four-way coronary artery bypass 14 years ago, presents with acute systolic heart failure. We will optimize management with diuretics, afterload agents and anti-ischemic therapy as indicated. Echocardiogram will be done for left ventricular function assessment, and determine additional medical therapy. With regards to ischemic evaluation, and the patient has multiple severe comorbidities including her morbid obesity, chronic leg ulcers, and poor mobility. As a consequence, she may not be a candidate for future aggressive and invasive cardiac therapies.
[2020-07-17 14:53] LABS: Calcium 8.7 mg/dL (8.4-10.2)
[2020-07-17 14:59] LABS: Hepatitis B Surface Antigen Non-Reactive (Negative); Hepatitis C Virus Antibody Non-Reactive (NonReactive)
[2020-07-17] MEDS: IPRATROPIUM/ALBUTEROL SULFATE 3 ML AMPUL.NEB IH SCH ×2 (15:20→21:01)
--- NOTE | 2020-07-17 16:34 | Vascular Lab Report ---
DUPLEX DOPPLER LOWER EXTREMITY VEINS, BILATERAL INDICATION / CLINICAL INFORMATION: Evaluate for DVT. Covid 19. TECHNIQUE: Duplex doppler imaging was performed through the veins of both lower extremities using venous marquita rai and other maneuvers. COMPARISON: None available. FINDINGS: RIGHT COMMON FEMORAL VEIN: Negative. RIGHT FEMORAL VEIN: Negative. RIGHT POPLITEAL VEIN: Negative. RIGHT CALF VEINS: Negative. LEFT COMMON FEMORAL VEIN: Negative. LEFT FEMORAL VEIN: Negative. LEFT POPLITEAL VEIN: Negative. LEFT CALF VEINS: Negative. ADDITIONAL FINDINGS: None. IMPRESSION: 1. No sonographic evidence for DVT in either lower extremity. Signer Name: Jonny Ac MD Signed: 07/17/2020 4:29 PM Workstation Name: [id number]
[2020-07-17 18:22] LABS: Bilirubin,Urine NEG (Negative); Blood,Urine NEG (Negative); Color,Urine Yellow (Yellow); Hyaline Casts,Urine 1 /LPF; Mucus,Urine FEW /HPF; Urobilinogen,Urine < 2.0 mg/dL (<2.0)
[2020-07-17] MEDS: ARFORMOTEROL 15 MCG/2 ML NEBU IH SCH (21:01)
[2020-07-17] MEDS: BUDESONIDE 0.5 MG/2 ML NEBU IH SCH (21:01)
[2020-07-17] MEDS: AMITRIPTYLINE 25 MG TAB PO SCH (21:59)
[2020-07-17] MEDS: hydrALAZINE 25 MG TAB PO SCH (21:59)
[2020-07-17] MEDS ORDERED: AMITRIPTYLINE 25 MG TAB PO SCH (22:00)
[2020-07-17] MEDS ORDERED: INSULIN GLARGINE 100 UNITS/ML SUB-Q SCH (22:00)
--- NOTE | 2020-07-17 23:02 | Ultrasound Report ---
ULTRASOUND RENAL INDICATION: [place] COMPARISON: No relevant prior imaging study available. FINDINGS: Note: Study was limited by the patient's body habitus and the need to perform the examination in an u pright position. RIGHT KIDNEY: Size: 9.2 cm. Echogenicity: Normal. Cortical thickness: Normal. Stones: None. Hydronephrosis: None. Cyst or mass: None. LEFT KIDNEY: Size: 9.4 cm. Echogenicity: Normal. Cortical thickness: Normal. Stones: None. Hydronephrosis: None. Cyst or mass: None. Urinary Bladder: No significant abnormality. Free Fluid: None. Additional Findings: None. IMPRESSION: No acute sonographic abnormality of the kidneys Signer Name: Ran Rdz MD Signed: 07/17/2020 10:57 PM Workstation Name: [id number]
[2020-07-18] MEDS: hydrALAZINE 25 MG TAB PO SCH ×3 (06:15→22:58)
[2020-07-18] MEDS: methylPREDNISolone Sod Succinate 125 MG/2 ML INJ IV SCH (06:15)
[2020-07-18] MEDS: HEPARIN 5,000 UNIT/1 ML VIAL SUB-Q SCH ×3 (06:15→22:59)
[2020-07-18 07:35] LABS: Calcium 8.8 mg/dL (8.4-10.2)
[2020-07-18] MEDS: BUDESONIDE 0.5 MG/2 ML NEBU IH SCH ×2 (07:44→21:25)
[2020-07-18] MEDS: ARFORMOTEROL 15 MCG/2 ML NEBU IH SCH ×2 (07:44→21:22)
[2020-07-18] MEDS: IPRATROPIUM/ALBUTEROL SULFATE 3 ML AMPUL.NEB IH SCH ×3 (07:44→21:25)
[2020-07-18] MEDS ORDERED: INSULIN REGULAR, HUMAN 100 UNITS/1 ML SUB-Q SCH ×2 (08:00→18:00)
[2020-07-18] MEDS ORDERED: INSULIN GLARGINE 100 UNITS/ML SUB-Q ONE (08:00)
[2020-07-18] MEDS: INSULIN LISPRO 100 UNIT/ML SUB-Q SCH ×4 (08:30→22:59)
--- NOTE | 2020-07-18 08:41 | Progress Note ---
Assessment and Plan Assessment and plan: 74-year-old female with hypertension, type 2 diabetes, coronary artery disease, CHF, s/p CABG and morbid obesity presents with increasing shortness of breath for the last 2 days. Patient was brought in by EMS was given nebulizer treatments in the emergency transport. Patient denies cough. Patient is normally on 4 L nasal cannula oxygen at home. Refusing CPAP by EMS. Patient has also fever. Did not have Covid vaccine or Covid infection. Lives with her daughters. Patient also wheezing. No exacerbating or relieving factors. Patient also has a small sacral wound in the sacral region and the left foot. Low-grade fever present. Home medications are not listed. 07/17: Patient has been weaned down to nasal cannula 2L. Pulmonary, cardiology and nephrology consulted nephrology input is noted. We will downgrade the patient to IMCU we will continue current work-up we will give a full dose of Lovenox while further explored VQ scan to evaluate for pulmonary embolism. Elevated troponin could be secondary to poor renal clearance due to worsening renal function versus a true NSTEMI will await cardiology evaluation although in the setting of congestive heart failure this may also be the reason. Patient did receive some Lasix in the ED. Will wean down steroid therapy at this time. Per cardiology - will obtain Echo, will also defer diuretics to them. Strict I's and O's. DM- Start on insulin, with high dose humlin sliding scale and Lantus at night Down grade to IMC. If VQ scan shows no pulmonary embolism we will downgrade to heparin subcu. Discussed with family. Wound care has been consulted to review bilateral lower extremity wounds. We will speak to daughter to obtain further medical records. 07/18: Patient remains on 2 L of oxygen improving respiratory catalan Doppler of the lower extremity was negative patient refused a VQ scan. Discussed with solar systems designer considering worsening renal function we will repeat chest x-ray this morning. Per solar systems designer patient may be on the dry side considering improvement in respiratory status. Based on the finding of the chest x-ray may consider giving back some fluids. We will continue to hold Lasix at this time. Mild hyperkalemia noted we will give a dose of Kayexalate. Blood sugar was noted to be significantly elevated adjusted insulin will monitor if improving patient can be transferred to telemetry. I also discussed with the daughter and updated her medical condition at this time. Continue wound care management for recent surgical procedure of the left foot. Weight loss counseling provided (1) Acute respiratory failure with hypoxia and hypercapnia Current Visit: Yes Status: Acute Plan to address problem: Patient is hypoxic and hypercarbic. Patient is refusing CPAP but was convinced to keep the CPAP/BiPAP IV Solu-Medrol and IV antibiotics and duo nebs [id number] and as needed Intubation if necessary Garbage Collection Supervisor consult requested by Dr. Amaral (2) SIRS (systemic inflammatory response syndrome) Current Visit: Yes Status: Acute Plan to address problem: Patient has fever tachypnea tachycardia. Consults systemic inflammatory response syndrome (3) COPD with exacerbation Current Visit: Yes Status: Acute Plan to address problem: IV steroids Solu-Medrol 80 mg every 8 hours IV antibiotics and duo nebs maggy [id number] and as needed. Continue CPAP Intubation if necessary Garbage Collection Supervisor consult requested (4) Hypertension Current Visit: Yes Status: Chronic Qualifiers: Hypertension type: essential hypertension Qualified Code(s): I10 - Essential (primary) hypertension Plan to address problem: No home medications. Initial blood pressure was 131/100 later the blood pressure was 128/75 We will trend the blood pressure and start antihypertensives as necessary (5) Suspected COVID-19 virus infection Current Visit: Yes Status: Acute Plan to address problem: Coronavirus PCR to be sent (6) Type II diabetes mellitus Current Visit: Yes Status: Chronic Qualifiers: Diabetes mellitus detention insulin use: unspecified detention insulin use status Plan to address problem: No home medications Check hemoglobin A1c Coverage for now We will call the family and find out the home medication (7) CHF (congestive heart failure) Current Visit: Yes Status: Acute Qualifiers: Heart failure type: combined systolic and diastolic Plan to address problem: BNP is in the 900s Echocardiogram Gentle hydration for 10 to 12 hours because of the ELMA (8) ELMA (acute kidney injury) Current Visit: Yes Status: Acute Plan to address problem: Secondary to vasomotor nephropathy Gentle hydration for 12 hours only Recheck the creatinine level Nephrology consult if necessary (9) Elevated troponin Current Visit: Yes Status: Acute Plan to address problem: Possible troponin leak We will get serial troponins Cardiology consult and echocardiogram requested for ejection fraction (10) hyperkalemia (11)DVT prophylaxis Current Visit: Yes Status: Acute Plan to address problem: On heparin and GI prophylaxis History Interval history: Patient seen and examined this morning sitting up reports improvement in shortness of breath. She refused a VQ scan yesterday considering improvement in her respiratory status will hold off. Echocardiogram was done yesterday. Hospitalist Physical - Physical exam Narrative exam: General appearance: Present: mild distress, well-nourished, morbidly obese - EENT Eyes: Present: PERRL ENT: hearing intact, clear oral mucosa - Neck Neck: Present: supple, normal ROM - Respiratory Respiratory effort: mildly labored Respiratory: bilateral: mild rhonchi, wheezing - Cardiovascular Heart rate: 100 Rhythm: regular Heart Sounds: Present: S1 & S2. Absent: rub, click - Extremities Extremities: pulses symmetrical, No edema, abnormal (Stage I sacral decubitus ulcer. Left foot ulcer) Extremity abnormal: other (Stage I sacral decubitus ulcer, left foot ulcer) Peripheral Pulses: within normal limits - Abdominal General gastrointestinal: Present: soft, non-tender, non-distended, normal bowel sounds Female genitourinary: Present: normal - Integumentary Integumentary: Present: Skin hypopigmentation, dressing bilateral lower ext, dressing over the left foot following surgical procedure. - Musculoskeletal Musculoskeletal: gait normal, strength equal bilaterally - Psychiatric Psychiatric: appropriate mood/affect, intact judgment & insight - Neurologic Neurologic: CNII-XII intact, moves all extremities - Allied Health Allied health notes reviewed: nursing, case management - Constitutional Vitals: Temp Pulse Resp BP Pulse Ox 98.1 F 108 H 24 155/114 100 07/18/20 07:00 07/18/20 08:21 07/18/20 08:21 07/18/20 08:21 07/18/20 08:21 General appearance: Present: severe distress, well-nourished HEART Score - HEART Score Age: > 65 Risk factors: > 3 risk factors or hx of atherosclerotic disease Troponin: Troponin T 0.485 ng/mL (0.00-0.029) H* D 07/17/20 13:50 - Critical Actions Critical Actions: 4-6 pts:12-16.6% risk of adverse cardiac event. Should be admitted Results - Labs CBC & Chem 7: 07/17/20 08:19 07/18/20 04:51 Labs: Laboratory Last Values WBC 10.4 K/mm3 (4.5-11.0) 05/24/21 08:19 RBC 4.29 M/mm3 (3.65-5.03) 07/17/20 08:19 Hgb 12.4 gm/dl (10.1-14.3) 07/17/20 08:19 Hct 37.8 % (30.3-42.9) 07/17/20 08:19 MCV 88 fl (79-97) 07/17/20 08:19 MCH 29 pg (28-32) 07/17/20 08:19 MCHC 33 % (30-34) 07/17/20 08:19 RDW 15.7 % (13.2-15.2) H 07/17/20 08:19 Plt Count 204 K/mm3 (140-440) 07/17/20 08:19 Lymph % (Auto) 7.1 % (13.4-35.0) L 07/17/20 08:19 [place] % (Auto) 3.9 % (0.0-7.3) 07/17/20 08:19 Eos % (Auto) 0.1 % (0.0-4.3) 07/17/20 08:19 Baso % (Auto) 0.3 % (0.0-1.8) 07/17/20 08:19 Lymph # (Auto) 0.7 K/mm3 (1.2-5.4) L 07/17/20 08:19 [place] # (Auto) 0.4 K/mm3 (0.0-0.8) 07/17/20 08:19 Eos # (Auto) 0.0 K/mm3 (0.0-0.4) 07/17/20 08:19 Baso # (Auto) 0.0 K/mm3 (0.0-0.1) 07/17/20 08:19 Seg Neutrophils % 88.6 % (40.0-70.0) H 07/17/20 08:19 Seg Neutrophils # 9.2 K/mm3 (1.8-7.7) H 07/17/20 08:19 D-Dimer 1508.10 ng/mlDDU (0-234) H 07/16/20 15:21 ABG pH 7.283 (7.320-7.450) L 07/16/20 15:02 POC ABG pCO2 59.0 mmHg (32.0-48.0) H 07/16/20 15:02 POC ABG pO2 163.4 mmHg (83-108) H 07/16/20 15:02 POC ABG HCO3 27.3 07/16/20 15:02 ABG O2 Saturation 99.3 (0-100) 07/16/20 15:02 POC ABG Base Excess -0.4 07/16/20 15:02 ABG Hemoglobin 12.3 (12.0-17.5) 07/16/20 15:02 ABG Oxyhemoglobin 98.4 (94-98) H 07/16/20 15:02 ABG Methemoglobin 0.3 (0.0-1.5) 07/16/20 15:02 ABG Sodium 138.1 mmol/L (136.0-145.0) 07/16/20 15:02 ABG Potassium 3.6 mmol/L (3.40-4.50) 07/16/20 15:02 ABG Chloride 98.0 mmol/L (98-107) 07/16/20 15:02 ABG Glucose 240 mg/dL (65-95) H 07/16/20 15:02 Carboxyhemoglobin 0.6 (0.5-1.5) 07/16/20 15:02 FiO2 % 35.0 07/16/20 15:02 Sodium 136 mmol/L (137-145) L 07/18/20 04:51 Potassium 5.1 mmol/L (3.6-5.0) H 07/18/20 04:51 Chloride 95.8 mmol/L (98-107) L 07/18/20 04:51 Carbon Dioxide 27 mmol/L (22-30) 07/18/20 04:51 Anion Gap 18 mmol/L 07/18/20 04:51 BUN 46 mg/dL (7-17) H 07/18/20 04:51 Creatinine 2.1 mg/dL (0.6-1.2) H 07/18/20 04:51 Estimated GFR 28 ml/min 07/18/20 04:51 BUN/Creatinine Ratio 22 % 07/18/20 04:51 Glucose 464 mg/dL (65-100) H 07/18/20 04:51 POC Glucose 500 mg/dL (70-105) H 07/18/20 07:31 Hemoglobin A1c 7.5 % (4-6) H 07/17/20 08:19 Calcium 8.8 mg/dL (8.4-10.2) 07/18/20 04:51 Ferritin 443.8 ng/mL (10.0-200.0) H 07/16/20 15:21 Ferritin 459.2 ng/mL (10.0-200.0) H 07/16/20 15:21 Total Bilirubin 0.30 mg/dL (0.1-1.2) 07/17/20 08:19 AST 57 units/L (5-40) H 07/17/20 08:19 ALT 49 units/L (7-56) 07/17/20 08:19 Alkaline Phosphatase 97 units/L (35-129) 07/17/20 08:19 Lactate Dehydrogenase 557 units/L (91-180) H 07/16/20 15:21 Troponin T 0.485 ng/mL (0.00-0.029) H* D 07/17/20 13:50 C-Reactive Protein 5.00 mg/dL (0.00-1.30) H 07/16/20 15:21 NT-Pro-B Natriuret Pep 904.1 pg/mL (0-900) H 07/16/20 15:21 Total Protein 8.3 g/dL (6.3-8.2) H 07/17/20 08:19 Albumin 3.2 g/dL (3.9-5) L 07/17/20 08:19 Albumin/Globulin Ratio 0.6 % 07/17/20 08:19 Triglycerides 91 mg/dL (2-149) 07/16/20 15:21 Cholesterol 199 mg/dL (50-199) 07/16/20 15:21 LDL Cholesterol Direct 132 mg/dL (50-130) H 07/16/20 15:21 HDL Cholesterol 52 mg/dL (40-59) 07/16/20 15:21 Cholesterol/HDL Ratio 3.82 % 07/16/20 15:21 Procalcitonin 0.08 ng/mL (<0.15) 07/16/20 15:21 Arterial Blood Glucose 240 mg/dL (65-95) H 07/16/20 15:02 Arterial Blood Ionized Calcium 4.7 mg/dL (4.6-5.3) 07/16/20 15:02 Urine Color Yellow (Yellow) 07/17/20 09:52 Urine Turbidity Slightly-cloudy (Clear) 07/17/20 09:52 Urine pH 5.0 (5.0-7.0) 07/17/20 09:52 Ur Specific [place] 1.013 (1.003-1.030) 07/17/20 09:52 Urine Protein 100 mg/dl mg/dL (Negative) 07/17/20 09:52 Urine Glucose (UA) Neg mg/dL (Negative) 07/17/20 09:52 Urine Ketones Neg mg/dL (Negative) 07/17/20 09:52 Urine Blood Neg (Negative) 07/17/20 09:52 Urine Nitrite Neg (Negative) 07/17/20 09:52 Urine Bilirubin Neg (Negative) 07/17/20 09:52 Urine Urobilinogen < 2.0 mg/dL (<2.0) 07/17/20 09:52 Ur Leukocyte Esterase Neg (Negative) 07/17/20 09:52 Urine WBC (Auto) 1.0 /HPF (0.0-6.0) 07/17/20 09:52 Urine RBC (Auto) 2.0 /HPF (0.0-6.0) 07/17/20 09:52 U Epithel Cells (Auto) 12.0 /HPF (0-13.0) 07/17/20 09:52 Hyaline Casts 1 /LPF 07/17/20 09:52 Urine Mucus Few /HPF 07/17/20 09:52 Urine Yeast (Budding) 1+ /HPF 07/17/20 09:52 Urine Eosinophils None seen (None Seen) 07/17/20 17:50 Coronavirus (PCR) Negative (Negative) 07/16/20 09:10 Hepatitis A IgM Ab Non-reactive (NonReactive) 07/17/20 13:50 Hep Bs Antigen Non-reactive (Negative) 07/17/20 13:50 Hep B Core IgM Ab Non-reactive (NonReactive) 07/17/20 13:50 Hepatitis C Antibody Non-reactive (NonReactive) 07/17/20 13:50 Microbiology: Microbiology 07/16/20 15:21 Peripheral/Venous Blood Culture - Preliminary NO GROWTH AFTER 24 HOURS 07/16/20 15:21 Peripheral/Venous Blood Culture - Preliminary NO GROWTH AFTER 24 HOURS [place]/IV: Voiding Method External Female Catheter Active Medications - Current Medications Current Medications: Generic Name Dose Route Start Last Admin Trade Name Freq PRN Reason Stop Dose Admin Acetaminophen 650 mg 07/16/20 21:51 Acetaminophen 325 Mg Tab PO Q4H PRN Pain MILD(1-3)/Fever >100.5/LEE Albuterol 2.5 mg 07/17/20 08:41 Albuterol 2.5 Mg/3 Ml Nebu IH Q4HRT PRN Wheezing Albuterol/Ipratropium 1 ampul 07/17/20 14:00 07/18/20 07:44 Ipratropium/Albuterol Sulfate 3 Ml Ampul.Neb IH Not Given TIDRT LISA Amitriptyline HCl 50 mg 07/17/20 22:00 07/17/20 21:59 Amitriptyline 25 Mg Tab PO 50 mg QHS LISA Administration Arformoterol Tartrate 15 mcg 07/17/20 20:00 07/18/20 07:44 Arformoterol 15 Mcg/2 Ml Nebu IH 15 mcg Q12HRT LISA Administration Budesonide 0.5 mg 07/17/20 20:00 07/18/20 07:44 Budesonide 0.5 Mg/2 Ml Nebu IH 0.5 mg Q12HRT LISA Administration Famotidine 20 mg 07/18/20 10:00 Famotidine 20 Mg Tab PO DAILY [facility] Heparin Sodium (Porcine) 5,000 unit 07/18/20 06:00 07/18/20 06:15 Heparin 5,000 Unit/1 Ml Vial SUB-Q 5,000 unit Q8HR LISA Administration Hydralazine HCl 25 mg 07/17/20 22:00 07/18/20 06:15 Hydralazine 25 Mg Tab PO 25 mg Q8HR LISA Administration Hydromorphone HCl 0.5 mg 07/16/20 21:51 07/17/20 22:28 Hydromorphone 1 Mg/1 Ml Inj IV 0.5 mg Q3H PRN Administration Pain , Severe (7-10) Insulin Glargine 30 units 07/18/20 22:00 Insulin Glargine 100 Units/Ml SUB-Q QHS [facility] Insulin Human Lispro 0 unit 07/17/20 11:30 07/18/20 08:30 Insulin Lispro 100 Unit/Ml SUB-Q 10 unit ACHS LISA Administration Protocol Insulin Human Regular 5 units 07/18/20 08:00 Insulin Regular, Human 100 Units/1 Ml SUB-Q ONCE LISA Metoclopramide HCl 10 mg 07/16/20 21:51 Metoclopramide 10 Mg/2 Ml Inj IV Q6H PRN Nausea And Vomiting Morphine Sulfate 2 mg 07/16/20 21:51 07/16/20 22:22 Morphine 2 Mg/1 Ml Inj IV 2 mg Q4H PRN Administration Pain, Moderate (4-6) Ondansetron HCl 4 mg 07/16/20 21:51 Ondansetron 4 Mg/2 Ml Inj IV Q3H PRN Nausea And Vomiting Prednisone 40 mg 07/19/20 10:00 Prednisone 20 Mg Tab PO 07/22/20 10:01 QDAY LISA Sodium Chloride 10 ml 07/16/20 22:00 07/17/20 22:34 Sodium Chloride 0.9% 10 Ml Flush Syringe IV 10 ml BID LISA Administration Sodium Chloride 10 ml 07/16/20 21:51 Sodium Chloride 0.9% 10 Ml Flush Syringe IV PRN PRN LINE FLUSH Nutrition/Malnutrition Assess - Dietary Evaluation Nutrition/Malnutrition Findings: Nutrition Notes Start: 07/17/20 10:55 Freq: Status: Active Protocol: Document 07/17/20 10:55 RONAL (Rec: 07/17/20 11:01 RONAL [id number]) Nutrition Notes 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 She was admitted with c /o increasing SOB; on 4L oxygen via [place] at home. Burn Absent Trauma Absent Minimum of two criteria No #1 Nutrition Diagnosis Predicted suboptimal energy intake Etiology increased work of breathing, possible COVID-19 As Evidenced by Signs and Symptoms pt admitted with c/o SOB Is patient on ventilator? No Is Patient Ambulatory and/or Out of Bed No REE-([facility]-confined to bed) 2223.156 Kcal/Kg value to use for calculation 12 Approximate Energy Requirements Using 1662 kcal/Kg Calculation Used for Recommendations Kcal/kg Additional Notes Pro needs up to 2.5g/kg IBW: up to 125g/day Fluid needs 1ml/kcal Nutrition Intervention Change Diet Order: Add consistent CHO modifier to current diet order Goal #1 PO tolerance Goal #2 PO intake of meals to meet at least 75% energy and pro needs Anticipated Discharge Needs: CHO-controlled, heart-healthy diet Follow-Up By: 07/20/20 Additional Comments F/U: intakes
[2020-07-18] MEDS ORDERED: SODIUM POLYSTYRENE 15 GM/60 ML ORAL LIQD PO ONE (09:00)
--- NOTE | 2020-07-18 09:11 | Progress Note ---
Assessment and Plan Impression * Acute kidney injury * Hyperkalemia * Shortness of breath. Most likely secondary to CHF * Coronary artery disease. Status post bypass surgery * Hypertension * Diabetes * Morbid obesity Recommendations * Her renal function seems to be getting worse. * Suspect a possible prerenal component. She may have a component of ATN as well * Shortness of breath is much improved. Shall check a chest x-ray, BNP as well as a fractional excretion of sodium * Shall hydrate her gently overnight . * Her urine shows 2+ dipstick protein but no blood. She may have some degree of underlying chronic kidney disease * Renal ultrasound is normal * Hepatitis B and C both negative. Follow-up results of vasculitis work-up to rule out pulmonary renal syndrome as well * Hyperkalemia has improved * avoid nephrotoxins * Monitor fluid status and electrolytes closely * No urgent indication for dialysis today * Hold diuretics for now Subjective Date of service: 07/18/20 Interval history: Patient is comfortable this morning. She remains in the ICU. Shortness of breath is better. Oxygen saturation 100% on 3 L via nasal cannula. Objective - Vital Signs Vital signs: Vital Signs - 12hr 07/17/20 07/17/20 07/17/20 21:11 21:21 21:31 Temperature Pulse Rate 113 H 126 H 104 H Pulse Rate [ From Monitor] Pulse Rate [ Posterior Bilateral Throughout] Respiratory 27 H 23 26 H Rate Respiratory Rate [Posterior Bilateral Throughout] Blood Pressure 187/91 187/91 163/100 O2 Sat by Pulse 91 100 97 Oximetry 07/17/20 07/17/20 07/17/20 21:41 21:50 21:59 Temperature Pulse Rate 113 H 113 H 112 H Pulse Rate [ From Monitor] Pulse Rate [ Posterior Bilateral Throughout] Respiratory 15 13 Rate Respiratory Rate [Posterior Bilateral Throughout] Blood Pressure 163/100 163/100 163/100 O2 Sat by Pulse 97 89 Oximetry 07/17/20 07/17/20 07/17/20 22:00 22:11 22:21 Temperature Pulse Rate 113 H 111 H 113 H Pulse Rate [ From Monitor] Pulse Rate [ Posterior Bilateral Throughout] Respiratory 28 H 19 19 Rate Respiratory Rate [Posterior Bilateral Throughout] Blood Pressure 152/101 152/101 152/101 O2 Sat by Pulse 99 96 95 Oximetry 07/17/20 07/17/20 07/17/20 22:31 22:37 22:41 Temperature Pulse Rate 103 H 93 H 97 H Pulse Rate [ From Monitor] Pulse Rate [ Posterior Bilateral Throughout] Respiratory 17 16 18 Rate Respiratory Rate [Posterior Bilateral Throughout] Blood Pressure 152/101 152/101 152/101 O2 Sat by Pulse 97 98 98 Oximetry 07/17/20 07/17/20 07/17/20 22:51 23:00 23:11 Temperature Pulse Rate 91 H 104 H 106 H Pulse Rate [ From Monitor] Pulse Rate [ Posterior Bilateral Throughout] Respiratory 15 15 21 Rate Respiratory Rate [Posterior Bilateral Throughout] Blood Pressure 152/101 158/79 158/79 O2 Sat by Pulse 97 97 86 Oximetry 07/17/20 07/17/20 07/17/20 23:21 23:27 23:31 Temperature 98.7 F Pulse Rate 104 H Pulse Rate [ From Monitor] Pulse Rate [ Posterior Bilateral Throughout] Respiratory 17 14 Rate Respiratory Rate [Posterior Bilateral Throughout] Blood Pressure 158/79 158/79 O2 Sat by Pulse 85 97 Oximetry 07/17/20 07/17/20 07/18/20 23:41 23:51 00:00 Temperature Pulse Rate 108 H 102 H 102 H Pulse Rate [ 102 H From Monitor] Pulse Rate [ Posterior Bilateral Throughout] Respiratory 14 16 14 Rate Respiratory Rate [Posterior Bilateral Throughout] Blood Pressure 158/79 158/79 O2 Sat by Pulse 98 98 98 Oximetry 07/18/20 07/18/20 07/18/20 00:01 00:11 00:21 Temperature Pulse Rate 102 H 100 H 102 H Pulse Rate [ From Monitor] Pulse Rate [ Posterior Bilateral Throughout] Respiratory 14 14 12 Rate Respiratory Rate [Posterior Bilateral Throughout] Blood Pressure 150/78 150/78 150/78 O2 Sat by Pulse 98 98 98 Oximetry 07/18/20 07/18/20 07/18/20 00:31 00:41 00:51 Temperature Pulse Rate 99 H 99 H 101 H Pulse Rate [ From Monitor] Pulse Rate [ Posterior Bilateral Throughout] Respiratory 16 14 13 Rate Respiratory Rate [Posterior Bilateral Throughout] Blood Pressure 150/78 150/78 150/78 O2 Sat by Pulse 98 98 98 Oximetry 07/18/20 07/18/20 07/18/20 01:00 01:11 01:21 Temperature Pulse Rate 97 H 97 H 97 H Pulse Rate [ From Monitor] Pulse Rate [ Posterior Bilateral Throughout] Respiratory 13 14 14 Rate Respiratory Rate [Posterior Bilateral Throughout] Blood Pressure 150/78 164/68 164/68 O2 Sat by Pulse 98 98 98 Oximetry 07/18/20 07/18/20 07/18/20 01:31 01:41 01:51 Temperature Pulse Rate 95 H 97 H 100 H Pulse Rate [ From Monitor] Pulse Rate [ Posterior Bilateral Throughout] Respiratory 12 14 14 Rate Respiratory Rate [Posterior Bilateral Throughout] Blood Pressure 164/68 164/68 164/68 O2 Sat by Pulse 98 98 99 Oximetry 07/18/20 07/18/20 07/18/20 02:01 02:11 02:21 Temperature Pulse Rate 98 H 97 H Pulse Rate [ From Monitor] Pulse Rate [ Posterior Bilateral Throughout] Respiratory 13 13 14 Rate Respiratory Rate [Posterior Bilateral Throughout] Blood Pressure 187/90 187/90 187/90 O2 Sat by Pulse 98 99 98 Oximetry 07/18/20 07/18/20 07/18/20 02:31 02:41 02:51 Temperature Pulse Rate 100 H 86 Pulse Rate [ From Monitor] Pulse Rate [ Posterior Bilateral Throughout] Respiratory 12 13 15 Rate Respiratory Rate [Posterior Bilateral Throughout] Blood Pressure 187/90 187/90 187/90 O2 Sat by Pulse 99 98 99 Oximetry 07/18/20 07/18/20 07/18/20 03:01 03:11 03:13 Temperature 98.4 F Pulse Rate 100 H 97 H Pulse Rate [ From Monitor] Pulse Rate [ Posterior Bilateral Throughout] Respiratory 18 13 Rate Respiratory Rate [Posterior Bilateral Throughout] Blood Pressure 156/83 156/83 O2 Sat by Pulse 98 98 Oximetry 07/18/20 07/18/20 07/18/20 03:21 03:31 03:41 Temperature Pulse Rate 100 H 96 H 97 H Pulse Rate [ From Monitor] Pulse Rate [ Posterior Bilateral Throughout] Respiratory 13 14 14 Rate Respiratory Rate [Posterior Bilateral Throughout] Blood Pressure 156/83 156/83 156/83 O2 Sat by Pulse 98 99 98 Oximetry 07/18/20 07/18/20 07/18/20 03:51 04:00 04:11 Temperature Pulse Rate 97 H 99 H 100 H Pulse Rate [ 99 H From Monitor] Pulse Rate [ Posterior Bilateral Throughout] Respiratory 14 13 16 Rate Respiratory Rate [Posterior Bilateral Throughout] Blood Pressure 156/83 158/89 158/89 O2 Sat by Pulse 98 99 96 Oximetry 07/18/20 07/18/20 07/18/20 04:21 04:31 04:41 Temperature Pulse Rate 97 H 98 H 97 H Pulse Rate [ From Monitor] Pulse Rate [ Posterior Bilateral Throughout] Respiratory 15 15 15 Rate Respiratory Rate [Posterior Bilateral Throughout] Blood Pressure 158/89 158/89 158/89 O2 Sat by Pulse 90 89 88 Oximetry 07/18/20 07/18/20 07/18/20 04:51 05:01 05:11 Temperature Pulse Rate 107 H 113 H 111 H Pulse Rate [ From Monitor] Pulse Rate [ Posterior Bilateral Throughout] Respiratory 21 11 L 22 Rate Respiratory Rate [Posterior Bilateral Throughout] Blood Pressure 158/89 177/156 158/89 O2 Sat by Pulse 87 85 90 Oximetry 07/18/20 07/18/20 07/18/20 05:21 05:31 05:41 Temperature Pulse Rate 107 H 107 H 104 H Pulse Rate [ From Monitor] Pulse Rate [ Posterior Bilateral Throughout] Respiratory 20 25 H 19 Rate Respiratory Rate [Posterior Bilateral Throughout] Blood Pressure 158/89 158/89 158/89 O2 Sat by Pulse 90 90 94 Oximetry 07/18/20 07/18/20 07/18/20 05:51 06:01 06:11 Temperature Pulse Rate 103 H 104 H 107 H Pulse Rate [ From Monitor] Pulse Rate [ Posterior Bilateral Throughout] Respiratory 19 21 23 Rate Respiratory Rate [Posterior Bilateral Throughout] Blood Pressure 158/89 173/84 173/84 O2 Sat by Pulse 94 93 99 Oximetry 07/18/20 07/18/20 07/18/20 06:15 06:21 06:31 Temperature Pulse Rate 105 H 108 H 109 H Pulse Rate [ From Monitor] Pulse Rate [ Posterior Bilateral Throughout] Respiratory 23 16 Rate Respiratory Rate [Posterior Bilateral Throughout] Blood Pressure 173/84 173/84 173/84 O2 Sat by Pulse 100 99 Oximetry 07/18/20 07/18/20 07/18/20 06:41 06:51 07:00 Temperature 98.1 F Pulse Rate 101 H 100 H Pulse Rate [ From Monitor] Pulse Rate [ Posterior Bilateral Throughout] Respiratory 12 16 Rate Respiratory Rate [Posterior Bilateral Throughout] Blood Pressure 173/84 173/84 O2 Sat by Pulse 98 100 Oximetry 07/18/20 07/18/20 07/18/20 07:01 07:11 07:21 Temperature Pulse Rate 94 H 96 H 102 H Pulse Rate [ From Monitor] Pulse Rate [ Posterior Bilateral Throughout] Respiratory 19 19 19 Rate Respiratory Rate [Posterior Bilateral Throughout] Blood Pressure 152/69 152/69 152/69 O2 Sat by Pulse 100 100 100 Oximetry 07/18/20 07/18/20 07/18/20 07:30 07:41 07:44 Temperature Pulse Rate 107 H 105 H Pulse Rate [ From Monitor] Pulse Rate [ Posterior Bilateral Throughout] Respiratory 14 15 Rate Respiratory Rate [Posterior Bilateral Throughout] Blood Pressure 155/114 155/114 O2 Sat by Pulse 99 Oximetry 07/18/20 07/18/20 07/18/20 07:45 07:51 08:01 Temperature Pulse Rate 103 H 105 H Pulse Rate [ From Monitor] Pulse Rate [ 104 H Posterior Bilateral Throughout] Respiratory 20 19 Rate Respiratory 16 Rate [Posterior Bilateral Throughout] Blood Pressure 155/114 155/114 O2 Sat by Pulse 100 100 Oximetry 07/18/20 07/18/20 08:11 08:21 Temperature Pulse Rate 108 H 108 H Pulse Rate [ From Monitor] Pulse Rate [ Posterior Bilateral Throughout] Respiratory 15 24 Rate Respiratory Rate [Posterior Bilateral Throughout] Blood Pressure 155/114 155/114 O2 Sat by Pulse 100 100 Oximetry - General Appearance General appearance: well-developed, well-nourished, appears stated age, obese EENT: PERRL, mucous membranes moist Neck: no JVD, no thyromegaly, no carotid bruit, supple Respiratory: Present: Wheezes (Bilateral wheezing) Cardiology: regular, normal heart rate, S1S2, no murmurs Gastrointestinal: normal, normoactive bowel sounds Integumentary: no rash, other (Both feet and legs wrapped with bandage. Wrinkling of skin noted.) - Lab 07/17/20 08:19 07/18/20 04:51 Most recent lab results ABG pH 7.283 (7.320-7.450) L 07/16/20 15:02 ABG O2 Saturation 99.3 (0-100) 07/16/20 15:02 Calcium 8.8 mg/dL (8.4-10.2) 07/18/20 04:51 Medications & Allergies - Medications Allergies/Adverse Reactions: Allergies azithromycin Allergy (Verified 07/16/20 14:10) Unknown codeine Allergy (Verified 07/16/20 14:10) Unknown Sulfa (Sulfonamide Antibiotics) Allergy (Verified 07/16/20 14:11) Unknown Home Medications: Home Medications Medication Instructions Recorded Confirmed Last Taken Type Amitriptyline 25 mg PO DAILY 07/17/20 07/17/20 2 Days Ago History ~07/15/20 Furosemide [Lasix] 40 tab PO BID 07/17/20 07/17/20 07/15/20 History HCTZ 25 tab PO DAILY 07/17/20 07/17/20 07/15/20 History Lyrica 50 mg PO TID 07/17/20 07/17/20 07/15/20 History Rosuvastatin Calcium 40 mg PO HS 07/17/20 07/17/20 07/15/20 History cloNIDine-TTS PATCH [Catapres-Tts 0.1 mg TRANSDERMA TID 07/17/20 07/17/20 Unknown History 0.1MG Patch] hydrALAZINE 25 tab PO Q8H 07/17/20 07/17/20 07/16/20 History Active Medications: Generic Name Dose Route Start Last Admin Trade Name Freq PRN Reason Stop Dose Admin Acetaminophen 650 mg 07/16/20 21:51 Acetaminophen 325 Mg Tab PO Q4H PRN Pain MILD(1-3)/Fever >100.5/LEE Albuterol 2.5 mg 07/17/20 08:41 Albuterol 2.5 Mg/3 Ml Nebu IH Q4HRT PRN Wheezing Albuterol/Ipratropium 1 ampul 07/17/20 14:00 07/18/20 07:44 Ipratropium/Albuterol Sulfate 3 Ml Ampul.Neb IH Not Given TIDRT LISA Amitriptyline HCl 50 mg 07/17/20 22:00 07/17/20 21:59 Amitriptyline 25 Mg Tab PO 50 mg QHS LISA Administration Arformoterol Tartrate 15 mcg 07/17/20 20:00 07/18/20 07:44 Arformoterol 15 Mcg/2 Ml Nebu IH 15 mcg Q12HRT LISA Administration Budesonide 0.5 mg 07/17/20 20:00 07/18/20 07:44 Budesonide 0.5 Mg/2 Ml Nebu IH 0.5 mg Q12HRT LISA Administration Famotidine 20 mg 07/18/20 10:00 Famotidine 20 Mg Tab PO DAILY LISA Heparin Sodium (Porcine) 5,000 unit 07/18/20 06:00 07/18/20 06:15 Heparin 5,000 Unit/1 Ml Vial SUB-Q 5,000 unit Q8HR LISA Administration Hydralazine HCl 25 mg 07/17/20 22:00 07/18/20 06:15 Hydralazine 25 Mg Tab PO 25 mg Q8HR LISA Administration Hydromorphone HCl 0.5 mg 07/16/20 21:51 07/17/20 22:28 Hydromorphone 1 Mg/1 Ml Inj IV 0.5 mg Q3H PRN Administration Pain , Severe (7-10) Insulin Glargine 30 units 07/18/20 22:00 Insulin Glargine 100 Units/Ml SUB-Q QHS LISA Insulin Human Lispro 0 unit 07/17/20 11:30 07/18/20 08:30 Insulin Lispro 100 Unit/Ml SUB-Q 10 unit ACHS LISA Administration Protocol Insulin Human Regular 5 units 07/18/20 08:00 Insulin Regular, Human 100 Units/1 Ml SUB-Q ONCE LISA Metoclopramide HCl 10 mg 07/16/20 21:51 Metoclopramide 10 Mg/2 Ml Inj IV Q6H PRN Nausea And Vomiting Morphine Sulfate 2 mg 07/16/20 21:51 07/16/20 22:22 Morphine 2 Mg/1 Ml Inj IV 2 mg Q4H PRN Administration Pain, Moderate (4-6) Ondansetron HCl 4 mg 07/16/20 21:51 Ondansetron 4 Mg/2 Ml Inj IV Q3H PRN Nausea And Vomiting Prednisone 40 mg 07/19/20 10:00 Prednisone 20 Mg Tab PO 07/22/20 10:01 QDAY LISA Sodium Chloride 10 ml 07/16/20 22:00 07/17/20 22:34 Sodium Chloride 0.9% 10 Ml Flush Syringe IV 10 ml BID LISA Administration Sodium Chloride 10 ml 07/16/20 21:51 Sodium Chloride 0.9% 10 Ml Flush Syringe IV PRN PRN LINE FLUSH
[2020-07-18] MEDS ORDERED: SODIUM CHLORIDE 0.9% 1000 ML 1,000 ML IV SCH (09:30)
--- NOTE | 2020-07-18 10:17 | XRay Report ---
XR chest 1V ap INDICATION / CLINICAL INFORMATION: shortness of breath COMPARISON: 07/16/2020 FINDINGS: SUPPORT DEVICES: None. HEART / MEDIASTINUM: No significant abnormality. LUNGS / PLEURA: Lungs are unchanged. Costophrenic sulci are sharp. No pneumothorax. ADDITIONAL FINDINGS: No significant additional findings. IMPRESSION: 1. No acute findings. Signer Name: Benjamin Rodriguez MD Signed: 07/18/2020 10:12 AM Workstation Name: [employer]
--- NOTE | 2020-07-18 10:29 | Electrocardiograph Report ---
[facility] Test Date: 2020-07-16 Test Time: 14:05:22 Pat Name: RAFFI HEATON Department: Room: A258 1 Gender: F Silk Folder: GIANNI : 1945 Requested By: THIEN LIN Order Number: [id number] Reading MD: Kelvin Rodriges Measurements Intervals [place] Rate: 146 P: 60 NC: 130 QRS: 51 QRSD: 92 T: QT: 275 QTc: 428 Interpretive Statements Sinus tachycardia Probable left atrial enlargement Consider anterior infarct Repolarization abnormality, prob rate related No previous ECG available for comparison Electronically Signed On 07-18-2020 10:29:21 EDT by Kelvin Rodriges
--- NOTE | 2020-07-18 11:15 | Progress Note ---
Assessment and Plan Acute pulmonary edema Acute systolic heart failure Hx of CAD with 4 vessel coronary artery bypass at [place] noncompliant with cardiac follow up Acute renal failure Morbid obesity Chronic bilateral leg ulcers Hypertension Diabetes An echocardiogram demonstrates a decrease left ventricular ejection fraction 25- 30%. Recommendations: Fluid restriction and low sodium diet. Aggressive medical therapy for systolic heart failure including a trial of intravenous milrinone therapy. Subjective Date of service: 07/18/20 Interval history: Patient is short of breath with minimal exertion but reports improved since admission. Objective Vital Signs Temp Pulse Pulse Pulse Resp Resp BP 07/18/20 10:31 100 H 20 07/18/20 10:20 106 H 20 166/71 07/18/20 10:11 101 H 19 166/71 07/18/20 10:01 103 H 20 166/71 07/18/20 09:51 106 H 19 149/87 07/18/20 09:41 103 H 22 149/87 07/18/20 09:31 105 H 21 149/87 07/18/20 09:21 111 H 17 149/87 07/18/20 09:11 110 H 16 149/87 07/18/20 09:01 105 H 20 197/76 07/18/20 08:51 108 H 14 149/87 07/18/20 08:41 110 H 13 149/87 07/18/20 08:31 107 H 15 149/87 07/18/20 08:21 108 H 24 155/114 07/18/20 08:11 108 H 15 155/114 07/18/20 08:01 105 H 19 155/114 07/18/20 08:00 100 H 17 07/18/20 07:51 103 H 20 155/114 07/18/20 07:45 104 H 16 07/18/20 07:44 07/18/20 07:41 105 H 15 155/114 07/18/20 07:30 107 H 14 155/114 07/18/20 07:21 102 H 19 152/69 07/18/20 07:11 96 H 19 152/69 07/18/20 07:01 94 H 19 152/69 07/18/20 07:00 98.1 F 07/18/20 06:51 100 H 16 173/84 07/18/20 06:41 101 H 12 173/84 07/18/20 06:31 109 H 16 173/84 07/18/20 06:21 108 H 23 173/84 07/18/20 06:15 105 H 173/84 07/18/20 06:11 107 H 23 173/84 07/18/20 06:01 104 H 21 173/84 07/18/20 05:51 103 H 19 158/89 07/18/20 05:41 104 H 19 158/89 07/18/20 05:31 107 H 25 H 158/89 07/18/20 05:21 107 H 20 158/89 07/18/20 05:11 111 H 22 158/89 07/18/20 05:01 113 H 11 L 177/156 07/18/20 04:51 107 H 21 158/89 07/18/20 04:41 97 H 15 158/89 07/18/20 04:31 98 H 15 158/89 07/18/20 04:21 97 H 15 158/89 07/18/20 04:11 100 H 16 158/89 07/18/20 04:00 99 H 99 H 13 158/89 07/18/20 03:51 97 H 14 156/83 07/18/20 03:41 97 H 14 156/83 07/18/20 03:31 96 H 14 156/83 07/18/20 03:21 100 H 13 156/83 07/18/20 03:13 98.4 F 07/18/20 03:11 97 H 13 156/83 07/18/20 03:01 100 H 18 156/83 07/18/20 02:51 15 187/90 07/18/20 02:41 86 13 187/90 07/18/20 02:31 100 H 12 187/90 07/18/20 02:21 14 187/90 07/18/20 02:11 97 H 13 187/90 07/18/20 02:01 98 H 13 187/90 07/18/20 01:51 100 H 14 164/68 07/18/20 01:41 97 H 14 164/68 07/18/20 01:31 95 H 12 164/68 07/18/20 01:21 97 H 14 164/68 07/18/20 01:11 97 H 14 164/68 07/18/20 01:00 97 H 13 150/78 05 00:51 101 H 13 150/78 05/25/21 00:41 99 H 14 150/78 07/18/20 00:31 99 H 16 150/78 07/18/20 00:21 102 H 12 150/78 07/18/20 00:11 100 H 14 150/78 07/18/20 00:01 102 H 14 150/78 07/18/20 00:00 102 H 102 H 14 07/17/20 23:51 102 H 16 158/79 07/17/20 23:41 108 H 14 158/79 07/17/20 23:31 104 H 14 158/79 07/17/20 23:27 98.7 F 07/17/20 23:21 17 158/79 07/17/20 23:11 106 H 21 158/79 07/17/20 23:00 104 H 15 158/79 07/17/20 22:51 91 H 15 152/101 07/17/20 22:41 97 H 18 152/101 07/17/20 22:37 93 H 16 152/101 07/17/20 22:31 103 H 17 152/101 07/17/20 22:21 113 H 19 152/101 07/17/20 22:11 111 H 19 152/101 07/17/20 22:00 113 H 28 H 152/101 07/17/20 21:59 112 H 163/100 07/17/20 21:50 113 H 13 163/100 07/17/20 21:41 113 H 15 163/100 07/17/20 21:31 104 H 26 H 163/100 07/17/20 21:21 126 H 23 187/07/17/20 21:11 113 H 27 H 187/91 07/17/20 21:03 07/17/20 21:01 104 H 23 187/91 07/17/20 20:51 109 H 21 187/98 07/17/20 20:41 104 H 24 187/98 07/17/20 20:31 106 H 24 187/98 07/17/20 20:21 111 H 12 192/87 07/17/20 20:11 111 H 20 192/07/17/20 20:01 117 H 24 192/87 07/17/20 20:00 117 H 117 H 15 07/17/20 19:51 113 H 15 102/80 07/17/20 19:41 104 H 19 189/92 07/17/20 19:30 106 H 19 189/92 07/17/20 19:27 98.6 F 07/17/20 19:21 113 H 14 102/80 07/17/20 19:11 113 H 17 102/80 07/17/20 19:01 114 H 17 102/80 07/17/20 18:51 106 H 21 88/55 07/17/20 18:41 108 H 20 163/87 07/17/20 18:31 108 H 21 163/87 07/17/20 18:21 108 H 23 88/55 07/17/20 18:11 97 H 19 88/55 07/17/20 18:00 112 H 18 88/55 07/17/20 17:51 115 H 21 85/49 07/17/20 17:41 128 H 32 H 175/78 07/17/20 17:31 107 H 26 H 175/78 07/17/20 17:21 113 H 14 175/78 07/17/20 17:11 111 H 19 175/78 07/17/20 17:01 109 H 22 175/78 07/17/20 16:51 112 H 19 175/78 07/17/20 16:41 114 H 30 H 175/78 07/17/20 16:31 114 H 22 175/78 07/17/20 16:21 110 H 21 175/78 07/17/20 16:11 113 H 15 175/78 07/17/20 16:00 98.5 F 111 H 22 175/78 07/17/20 15:51 112 H 24 159/78 07/17/20 15:41 115 H 35 H 159/78 07/17/20 15:30 113 H 21 159/78 07/17/20 15:21 110 H 12 151/120 07/17/20 15:20 111 H 12 07/17/20 15:11 108 H 21 151/120 07/17/20 15:00 112 H 24 141/74 07/17/20 14:51 109 H 19 135/67 07/17/20 14:41 111 H 20 135/67 07/17/20 14:31 111 H 17 151/120 07/17/20 14:21 111 H 18 150/95 07/17/20 14:17 112 H 12 150/95 05/24/21 13:51 19 135/67 / 13:41 21 135/67 07/17/20 13:31 85 25 H 135/67 07/17/20 13:21 19 137/73 07/17/20 13:11 18 137/73 07/17/20 13:00 112 H 26 H 137/73 07/17/20 12:51 110 H 26 H 132/73 07/17/20 12:41 89 18 132/73 07/17/20 12:31 110 H 31 H 132/73 07/17/20 12:21 112 H 21 143/77 07/17/20 12:11 112 H 24 143/77 07/17/20 12:00 98.0 F 110 H 25 H 143/77 07/17/20 11:51 112 H 21 121/73 07/17/20 11:41 107 H 23 121/73 07/17/20 11:30 105 H 19 121/73 07/17/20 11:21 112 H 26 H 137/76 07/17/20 11:11 109 H 21 137/76 Pulse Ox 07/18/20 10:31 100 07/18/20 10:20 100 07/18/20 10:11 100 07/18/20 10:01 100 07/18/20 09:51 100 07/18/20 09:41 100 07/18/20 09:31 100 07/18/20 09:21 100 07/18/20 09:11 100 07/18/20 09:01 100 07/18/20 08:51 100 07/18/20 08:41 100 07/18/20 08:31 100 07/18/20 08:21 100 07/18/20 08:11 100 07/18/20 08:01 100 07/18/20 08:00 100 07/18/20 07:51 100 07/18/20 07:45 07/18/20 07:44 99 07/18/20 07:41 07/18/20 07:30 07/18/20 07:21 100 07/18/20 07:11 100 07/18/20 07:01 100 07/18/20 07:00 07/18/20 06:51 100 07/18/20 06:41 98 07/18/20 06:31 99 07/18/20 06:21 100 07/18/20 06:15 07/18/20 06:11 99 07/18/20 06:01 93 07/18/20 05:51 94 07/18/20 05:41 94 07/18/20 05:31 90 07/18/20 05:21 90 07/18/20 05:11 90 07/18/20 05:01 85 07/18/20 04:51 87 07/18/20 04:41 88 07/18/20 04:31 89 07/18/20 04:21 90 07/18/20 04:11 96 07/18/20 04:00 99 07/18/20 03:51 98 07/18/20 03:41 98 07/18/20 03:31 99 07/18/20 03:21 98 07/18/20 03:13 07/18/20 03:11 98 07/18/20 03:01 98 07/18/20 02:51 99 07/18/20 02:41 98 07/18/20 02:31 99 07/18/20 02:21 98 07/18/20 02:11 99 07/18/20 02:01 98 07/18/20 01:51 99 07/18/20 01:41 98 07/18/20 01:31 98 07/18/20 01:21 98 07/18/20 01:11 98 07/18/20 01:00 98 07/18/20 00:51 98 07/18/20 00:41 98 07/18/20 00:31 98 07/18/20 00:21 98 07/18/20 00:11 98 07/18/20 00:01 98 07/18/20 00:00 98 07/17/20 23:51 98 07/17/20 23:41 98 07/17/20 23:31 97 07/17/20 23:27 05 23:21 85 07/17/20 23:11 86 07/17/20 23:00 97 07/17/20 22:51 97 07/17/20 22:41 98 07/17/20 22:37 98 07/17/20 22:31 97 07/17/20 22:21 95 07/17/20 22:11 96 07/17/20 22:00 99 05 21:59 05 21:50 89 05 21:41 97 07/17/20 21:31 97 07/17/20 21:21 100 07/17/20 21:11 91 07/17/20 21:03 99 07/17/20 21:01 100 07/17/20 20:51 100 05 20:41 100 07/17/20 20:31 100 07/17/20 20:21 99 07/17/20 20:11 91 07/17/20 20:01 99 07/17/20 20:00 100 07/17/20 19:51 97 07/17/20 19:41 99 07/17/20 19:30 98 07/17/20 19:27 07/17/20 19:21 96 07/17/20 19:11 100 07/17/20 19:01 98 07/17/20 18:51 100 07/17/20 18:41 100 07/17/20 18:31 100 07/17/20 18:21 100 07/17/20 18:11 100 07/17/20 18:00 99 07/17/20 17:51 99 07/17/20 17:41 94 07/17/20 17:31 100 07/17/20 17:21 93 07/17/20 17:11 98 07/17/20 17:01 99 07/17/20 16:51 98 07/17/20 16:41 98 07/17/20 16:31 98 07/17/20 16:21 100 07/17/20 16:11 97 07/17/20 16:00 99 07/17/20 15:51 98 07/17/20 15:41 97 07/17/20 15:30 100 07/17/20 15:21 98 07/17/20 15:20 07/17/20 15:11 99 07/17/20 15:00 96 07/17/20 14:51 98 07/17/20 14:41 99 07/17/20 14:31 98 07/17/20 14:21 98 07/17/20 14:17 99 07/17/20 13:51 100 07/17/20 13:41 99 07/17/20 13:31 100 07/17/20 13:21 100 05/21 13:11 100 07/17/20 13:00 98 07/17/20 12:51 99 07/17/20 12:41 95 07/17/20 12:31 99 07/17/20 12:21 99 07/17/20 12:11 98 07/17/20 12:00 100 07/17/20 11:51 99 07/17/20 11:41 99 07/17/20 11:30 99 07/17/20 11:21 99 07/17/20 11:11 100 - Physical Examination General: No Apparent Distress, Other (obese) HEENT: Positive: PERRL Neck: Positive: neck supple Cardiac: Positive: Tachycardia Lungs: Positive: Decreased Breath Sounds Neuro: Positive: Grossly Intact Skin: Positive: Other (Vitiligo) Extremities: Present: +1 Edema - Labs and Meds Comprehensive Metabolic Panel 07/17/20 07/18/20 Range/Units 13:50 04:51 Sodium 139 136 L (137-145) mmol/L Potassium 4.9 5.1 H (3.6-5.0) mmol/L Chloride 95.2 L 95.8 L (98-107) mmol/L Carbon Dioxide 21 L 27 (22-30) mmol/L BUN 32 H 46 H (7-17) mg/dL Creatinine 2.2 H 2.1 H (0.6-1.2) mg/dL Glucose 348 H 464 H (65-100) mg/dL Calcium 8.7 8.8 (8.4-10.2) mg/dL
[2020-07-18] MEDS: MILRINONE-D5W 20 MG/100 ML 20 MG/100 ML BAG IV SCH ×2 (11:29→18:04)
[2020-07-18] MEDS: FAMOTIDINE 20 MG TAB PO SCH (11:29)
[2020-07-18] MEDS: carvediloL 6.25 MG TAB PO SCH ×2 (11:48→22:58)
[2020-07-18] MEDS ORDERED: CLOPIDOGREL 300 MG TAB PO ONE (14:00)
[2020-07-18] MEDS: ASPIRIN EC 81 MG TAB PO SCH (15:12)
[2020-07-18] MEDS: ALPRAZolam 0.25 MG TAB PO PRN ×2 (15:34→22:59)
[2020-07-18] MEDS: ISOSORBIDE DINITRATE 10 MG TAB PO SCH ×2 (17:27→23:01)
[2020-07-18] MEDS ORDERED: INSULIN GLARGINE 100 UNITS/ML SUB-Q SCH (22:00)
[2020-07-18] MEDS: AMITRIPTYLINE 25 MG TAB PO SCH (22:58)
[2020-07-19] MEDS: HEPARIN 5,000 UNIT/1 ML VIAL SUB-Q SCH ×3 (05:44→22:31)
[2020-07-19] MEDS: hydrALAZINE 25 MG TAB PO SCH ×3 (05:44→22:32)
--- NOTE | 2020-07-19 08:20 | Progress Note ---
Assessment and Plan 74 y/o female with acute respiratory failure, concern for new onset heart failure. 07/19/20: Continue supplemental O2. Echo shows systolic heart failure but with worsening Cr, renal holding diuretics, now on inotropic therapy. 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 Will continue to follow. 1. Follow up echo 2. Bipap QHS, given patient body habitus, could have HANK 3. BP control 4. Monitor strict I/O Subjective Date of service: 07/19/20 Interval history: Successful transfer to floor. Now on Milrione therapy. Remains on nasal cannula but with good sats. Objective Vital Signs - 12hr 07/18/20 07/18/20 07/18/20 20:56 21:28 22:00 Temperature 98.0 F Pulse Rate 127 H 100 H Pulse Rate [ From Monitor] Respiratory 18 21 Rate Blood Pressure 145/65 O2 Sat by Pulse 98 99 99 Oximetry 07/18/20 07/18/20 07/19/20 22:58 23:32 00:00 Temperature 98.2 F Pulse Rate 127 H 124 H 120 H Pulse Rate [ From Monitor] Respiratory 18 Rate Blood Pressure 145/65 145/70 O2 Sat by Pulse 91 Oximetry 07/19/20 07/19/20 07/19/20 00:24 03:52 04:00 Temperature 97.6 F Pulse Rate 110 H 120 H Pulse Rate [ 120 H From Monitor] Respiratory 18 19 Rate Blood Pressure 119/64 O2 Sat by Pulse 99 93 Oximetry 07/19/20 05:44 Temperature Pulse Rate 120 H Pulse Rate [ From Monitor] Respiratory Rate Blood Pressure 119/64 O2 Sat by Pulse Oximetry Constitutional: no acute distress, alert, other (morbidly obese) Eyes: non-icteric Effort: normal Ascultation: Bilateral: diminished breath sounds, rales Percussion: Bilateral: not dull Tactile fremitus: Bilateral: normal Cardiovascular: regular rate and rhythm Gastrointestinal: normoactive bowel sounds, soft CBC and BMP: 07/17/20 08:19 07/18/20 04:51 ABG, PT/INR, D-dimer: ABG ABG pH 7.283 (7.320-7.450) L 07/16/20 15:02 POC ABG pCO2 59.0 mmHg (32.0-48.0) H 07/16/20 15:02 POC ABG pO2 163.4 mmHg (83-108) H 07/16/20 15:02 POC ABG HCO3 27.3 07/16/20 15:02 ABG O2 Saturation 99.3 (0-100) 07/16/20 15:02 PT/INR, D-dimer D-Dimer 1508.10 ng/mlDDU (0-234) H 07/16/20 15:21 Abnormal lab findings: Abnormal Labs 07/16/20 07/16/20 07/16/20 15:02 15: 15:21 WBC 11.6 H RDW 15.7 H Lymph % (Auto) 8.1 L [place] % (Auto) 8.9 H Lymph # (Auto) 0.9 L [place] # (Auto) 1.0 H Seg Neutrophils % 79.7 H Seg Neutrophils # 9.2 H D-Dimer ABG pH 7.283 L POC ABG pCO2 59.0 H POC ABG pO2 163.4 H ABG Oxyhemoglobin 98.4 H ABG Glucose 240 H Sodium Potassium Chloride 96.8 L Carbon Dioxide BUN Creatinine 1.4 H Glucose 211 H POC Glucose Hemoglobin A1c Ferritin AST 80 H Lactate Dehydrogenase Troponin T 0.089 H C-Reactive Protein NT-Pro-B Natriuret Pep Total Protein Albumin 3.8 L LDL Cholesterol Direct 132 H Arterial Blood Glucose 240 H 07/16/20 07/16/20 07/16/20 15:21 15:21 15:21 WBC RDW Lymph % (Auto) [place] % (Auto) Lymph # (Auto) [place] # (Auto) Seg Neutrophils % Seg Neutrophils # D-Dimer 1508.10 H ABG pH POC ABG pCO2 POC ABG pO2 ABG Oxyhemoglobin ABG Glucose Sodium Potassium Chloride Carbon Dioxide BUN Creatinine Glucose POC Glucose Hemoglobin A1c Ferritin 459.2 H AST Lactate Dehydrogenase Troponin T C-Reactive Protein NT-Pro-B Natriuret Pep 904.1 H Total Protein Albumin LDL Cholesterol Direct Arterial Blood Glucose 07/16/20 07/16/20 07/16/20 15:21 15:21 23:28 WBC RDW Lymph % (Auto) [place] % (Auto) Lymph # (Auto) [place] # (Auto) Seg Neutrophils % Seg Neutrophils # D-Dimer ABG pH POC ABG pCO2 POC ABG pO2 ABG Oxyhemoglobin ABG Glucose Sodium Potassium Chloride Carbon Dioxide BUN Creatinine Glucose 223 H POC Glucose 286 H Hemoglobin A1c Ferritin 443.8 H AST Lactate Dehydrogenase 557 H Troponin T C-Reactive Protein 5.00 H NT-Pro-B Natriuret Pep Total Protein Albumin LDL Cholesterol Direct Arterial Blood Glucose 07/17/20 07/17/20 07/17/20 05:21 08:19 08:19 WBC RDW 15.7 H Lymph % (Auto) 7.1 L [place] % (Auto) Lymph # (Auto) 0.7 L [place] # (Auto) Seg Neutrophils % 88.6 H Seg Neutrophils # 9.2 H D-Dimer ABG pH POC ABG pCO2 POC ABG pO2 ABG Oxyhemoglobin ABG Glucose Sodium 136 L Potassium 5.9 H D Chloride 96.9 L Carbon Dioxide 21 L BUN 28 H Creatinine 1.8 H Glucose 350 H POC Glucose 306 H Hemoglobin A1c Ferritin AST 57 H Lactate Dehydrogenase Troponin T C-Reactive Protein NT-Pro-B Natriuret Pep Total Protein 8.3 H Albumin 3.2 L LDL Cholesterol Direct Arterial Blood Glucose 07/17/20 07/17/20 07/17/20 08:19 08:19 08:33 WBC RDW Lymph % (Auto) [place] % (Auto) Lymph # (Auto) [place] # (Auto) Seg Neutrophils % Seg Neutrophils # D-Dimer ABG pH POC ABG pCO2 POC ABG pO2 ABG Oxyhemoglobin ABG Glucose Sodium Potassium Chloride Carbon Dioxide BUN Creatinine Glucose POC Glucose 306 H Hemoglobin A1c 7.5 H Ferritin AST Lactate Dehydrogenase Troponin T 0.369 H* D C-Reactive Protein NT-Pro-B Natriuret Pep Total Protein Albumin LDL Cholesterol Direct Arterial Blood Glucose 07/17/20 07/17/20 07/17/20 11:36 13:50 13:50 WBC RDW Lymph % (Auto) [place] % (Auto) Lymph # (Auto) [place] # (Auto) Seg Neutrophils % Seg Neutrophils # D-Dimer ABG pH POC ABG pCO2 POC ABG pO2 ABG Oxyhemoglobin ABG Glucose Sodium Potassium Chloride 95.2 L Carbon Dioxide 21 L BUN 32 H Creatinine 2.2 H Glucose 348 H POC Glucose 321 H Hemoglobin A1c Ferritin AST Lactate Dehydrogenase Troponin T 0.485 H* D C-Reactive Protein NT-Pro-B Natriuret Pep Total Protein Albumin LDL Cholesterol Direct Arterial Blood Glucose 07/17/20 07/17/20 07/18/20 16:03 21:37 04:51 WBC RDW Lymph % (Auto) [place] % (Auto) Lymph # (Auto) [place] # (Auto) Seg Neutrophils % Seg Neutrophils # D-Dimer ABG pH POC ABG pCO2 POC ABG pO2 ABG Oxyhemoglobin ABG Glucose Sodium 136 L Potassium 5.1 H Chloride 95.8 L Carbon Dioxide BUN 46 H Creatinine 2.1 H Glucose 464 H POC Glucose 352 H 349 H Hemoglobin A1c Ferritin AST Lactate Dehydrogenase Troponin T C-Reactive Protein NT-Pro-B Natriuret Pep Total Protein Albumin LDL Cholesterol Direct Arterial Blood Glucose 07/18/20 07/18/20 07/18/20 07:31 09:42 11:38 WBC RDW Lymph % (Auto) [place] % (Auto) Lymph # (Auto) [place] # (Auto) Seg Neutrophils % Seg Neutrophils # D-Dimer ABG pH POC ABG pCO2 POC ABG pO2 ABG Oxyhemoglobin ABG Glucose Sodium Potassium Chloride Carbon Dioxide BUN Creatinine Glucose POC Glucose 500 H 464 H Hemoglobin A1c Ferritin AST Lactate Dehydrogenase Troponin T C-Reactive Protein NT-Pro-B Natriuret Pep 68163 H Total Protein Albumin LDL Cholesterol Direct Arterial Blood Glucose 07/18/20 07/18/20 16:35 20:58 WBC RDW Lymph % (Auto) [place] % (Auto) Lymph # (Auto) [place] # (Auto) Seg Neutrophils % Seg Neutrophils # D-Dimer ABG pH POC ABG pCO2 POC ABG pO2 ABG Oxyhemoglobin ABG Glucose Sodium Potassium Chloride Carbon Dioxide BUN Creatinine Glucose POC Glucose 569 H 534 H Hemoglobin A1c Ferritin AST Lactate Dehydrogenase Troponin T C-Reactive Protein NT-Pro-B Natriuret Pep Total Protein Albumin LDL Cholesterol Direct Arterial Blood Glucose
[2020-07-19] MEDS: INSULIN LISPRO 100 UNIT/ML SUB-Q SCH ×4 (08:26→22:33)
[2020-07-19] MEDS: BUDESONIDE 0.5 MG/2 ML NEBU IH SCH ×2 (08:26→20:13)
[2020-07-19] MEDS: MILRINONE-D5W 20 MG/100 ML 20 MG/100 ML BAG IV SCH ×2 (08:26→19:50)
[2020-07-19] MEDS: ARFORMOTEROL 15 MCG/2 ML NEBU IH SCH ×2 (08:27→20:13)
[2020-07-19] MEDS: IPRATROPIUM/ALBUTEROL SULFATE 3 ML AMPUL.NEB IH SCH ×3 (08:27→20:13)
[2020-07-19] MEDS: ISOSORBIDE DINITRATE 10 MG TAB PO SCH ×3 (08:27→22:31)
[2020-07-19 08:35] LABS: Calcium 8.7 mg/dL (8.4-10.2)
[2020-07-19] MEDS: FAMOTIDINE 20 MG TAB PO SCH (09:00)
[2020-07-19] MEDS: carvediloL 6.25 MG TAB PO SCH ×2 (09:00→22:31)
[2020-07-19] MEDS: CLOPIDOGREL 75 MG TAB PO SCH (09:00)
[2020-07-19] MEDS: predniSONE 20 MG TAB PO SCH (09:00)
[2020-07-19] MEDS: ASPIRIN EC 81 MG TAB PO SCH (09:00)
[2020-07-19] MEDS ORDERED: FUROSEMIDE 40 MG/4 ML INJ IV NR (09:18)
--- NOTE | 2020-07-19 09:18 | Progress Note ---
Assessment and Plan Impression * Acute kidney injury * Hyperkalemia * Shortness of breath. Most likely secondary to CHF * Coronary artery disease. Status post bypass surgery * Hypertension * Diabetes * Morbid obesity Recommendations * Her renal function seems to be getting worse. * Suspect a possible prerenal /cardiorenal component. She may have a component of ATN as well * Patient's BNP is 34,000 and clinically she appears to be in CHF * Shall give her 1 dose of Lasix today .awaiting results of fractional excretion of sodium * Her urine shows 2+ dipstick protein but no blood. She may have some degree of underlying chronic kidney disease * Renal ultrasound is normal * Hepatitis B and C both negative. Follow-up results of vasculitis work-up to rule out pulmonary renal syndrome as well * Hyperkalemia has improved * avoid nephrotoxins * Monitor fluid status and electrolytes closely * If patient renal function continues to worsen, may need to consider renal replacement therapy Subjective Date of service: 07/19/20 Interval history: Patient is comfortable today. Shortness of breath is better. She has been transferred out of ICU. Currently on oxygen at 2 L/min via nasal cannula. Objective - Vital Signs Vital signs: Vital Signs - 12hr 07/18/20 07/18/20 07/18/20 21:28 22:00 22:58 Temperature Pulse Rate 100 H 127 H Pulse Rate [ From Monitor] Pulse Rate [ Posterior Bilateral Throughout] Respiratory 21 Rate Respiratory Rate [Posterior Bilateral Throughout] Blood Pressure 145/65 O2 Sat by Pulse 99 99 Oximetry 07/18/20 07/19/20 07/19/20 23:32 00:00 00:24 Temperature 98.2 F Pulse Rate 124 H 120 H Pulse Rate [ 120 H From Monitor] Pulse Rate [ Posterior Bilateral Throughout] Respiratory 18 18 Rate Respiratory Rate [Posterior Bilateral Throughout] Blood Pressure 145/70 O2 Sat by Pulse 91 99 Oximetry 07/19/20 07/19/20 07/19/20 03:52 04:00 05:44 Temperature 97.6 F Pulse Rate 110 H 120 H 120 H Pulse Rate [ From Monitor] Pulse Rate [ Posterior Bilateral Throughout] Respiratory 19 Rate Respiratory Rate [Posterior Bilateral Throughout] Blood Pressure 119/64 119/64 O2 Sat by Pulse 93 Oximetry 07/19/20 07/19/20 07/19/20 07:35 08:00 08:27 Temperature 97.5 F L Pulse Rate 101 H 101 H Pulse Rate [ From Monitor] Pulse Rate [ 107 H Posterior Bilateral Throughout] Respiratory 18 Rate Respiratory 18 Rate [Posterior Bilateral Throughout] Blood Pressure 128/69 128/69 O2 Sat by Pulse 92 Oximetry 07/19/20 07/19/20 08:30 09:00 Temperature Pulse Rate 100 H Pulse Rate [ From Monitor] Pulse Rate [ Posterior Bilateral Throughout] Respiratory Rate Respiratory Rate [Posterior Bilateral Throughout] Blood Pressure 128/69 O2 Sat by Pulse 99 Oximetry - General Appearance General appearance: well-developed, well-nourished, appears stated age, obese EENT: PERRL, mucous membranes moist Neck: no JVD, no thyromegaly, no carotid bruit, supple Respiratory: Present: Wheezes (Bilateral wheezing) Cardiology: regular, normal heart rate Gastrointestinal: normal, normoactive bowel sounds Integumentary: other (1+ edema) - Lab 07/17/20 08:19 07/19/20 07:49 Most recent lab results ABG pH 7.283 (7.320-7.450) L 07/16/20 15:02 ABG O2 Saturation 99.3 (0-100) 07/16/20 15:02 Calcium 8.7 mg/dL (8.4-10.2) 07/19/20 07:49 Medications & Allergies - Medications Allergies/Adverse Reactions: Allergies azithromycin Allergy (Verified 07/16/20 14:10) Unknown codeine Allergy (Verified 07/16/20 14:10) Unknown Sulfa (Sulfonamide Antibiotics) Allergy (Verified 07/16/20 14:11) Unknown Home Medications: Home Medications Medication Instructions Recorded Confirmed Last Taken Type Amitriptyline 25 mg PO DAILY 07/17/20 07/17/20 2 Days Ago History ~07/15/20 Furosemide [Lasix] 40 tab PO BID 07/17/20 07/17/20 07/15/20 History HCTZ 25 tab PO DAILY 07/17/20 07/17/20 07/15/20 History Lyrica 50 mg PO TID 07/17/20 07/17/20 07/15/20 History Rosuvastatin Calcium 40 mg PO HS 07/17/20 07/17/20 07/15/20 History cloNIDine-TTS PATCH [Catapres-Tts 0.1 mg TRANSDERMA TID 07/17/20 07/17/20 Unknown History 0.1MG Patch] hydrALAZINE 25 tab PO Q8H 07/17/20 07/17/20 07/16/20 History Active Medications: Generic Name Dose Route Start Last Admin Trade Name Freq PRN Reason Stop Dose Admin Acetaminophen 650 mg 07/16/20 21:51 Acetaminophen 325 Mg Tab PO Q4H PRN Pain MILD(1-3)/Fever >100.5/LEE Albuterol 2.5 mg 07/17/20 08:41 Albuterol 2.5 Mg/3 Ml Nebu IH Q4HRT PRN Wheezing Albuterol/Ipratropium 1 ampul 07/17/20 14:00 07/19/20 08:27 Ipratropium/Albuterol Sulfate 3 Ml Ampul.Neb IH Not Given TIDRT LISA Alprazolam 0.25 mg 07/18/20 15:21 07/18/20 22:59 Alprazolam 0.25 Mg Tab PO 0.25 mg Q6HR PRN Administration Anxiety Amitriptyline HCl 50 mg 07/17/20 22:00 07/18/20 22:58 Amitriptyline 25 Mg Tab PO 50 mg QHS LISA Administration Arformoterol Tartrate 15 mcg 07/17/20 20:00 07/19/20 08:27 Arformoterol 15 Mcg/2 Ml Nebu IH 15 mcg Q12HRT LISA Administration Aspirin 81 mg 07/18/20 14:00 07/19/20 09:00 Aspirin Ec 81 Mg Tab PO 81 mg QDAY LISA Administration Budesonide 0.5 mg 07/17/20 20:00 07/19/20 08:26 Budesonide 0.5 Mg/2 Ml Nebu IH 0.5 mg Q12HRT LISA Administration Carvedilol 6.25 mg 07/18/20 12:00 07/19/20 09:00 Carvedilol 6.25 Mg Tab PO 6.25 mg BID LISA Administration Clopidogrel Bisulfate 75 mg 07/19/20 10:00 07/19/20 09:00 Clopidogrel 75 Mg Tab PO 75 mg QDAY LISA Administration Famotidine 20 mg 07/18/20 10:00 07/19/20 09:00 Famotidine 20 Mg Tab PO 20 mg DAILY LISA Administration Heparin Sodium (Porcine) 5,000 unit 07/18/20 06:00 07/19/20 05:44 Heparin 5,000 Unit/1 Ml Vial SUB-Q 5,000 unit Q8HR LISA Administration Hydralazine HCl 25 mg 07/17/20 22:00 07/19/20 05:44 Hydralazine 25 Mg Tab PO 25 mg Q8HR LISA Administration Hydromorphone HCl 0.5 mg 07/16/20 21:51 07/17/20 22:28 Hydromorphone 1 Mg/1 Ml Inj IV 0.5 mg Q3H PRN Administration Pain , Severe (7-10) Sodium Chloride 1,000 mls @ 50 mls/hr 07/18/20 09:30 Nacl 0.9% 1000 Ml IV DIRECT LISA Milrinone Lactate/Dextrose 20 mg in 100 mls @ 15.581 mls/hr 07/18/20 11:00 07/19/20 08:26 Milrinone-D5w 20 Mg/100 Ml IV 07/22/20 10:59 0.375 mcg/kg/min DIRECT LISA 15.581 mls/hr Administration Protocol 0.375 MCG/KG/MIN Insulin Glargine 30 units 07/18/20 22:00 07/18/20 22:59 Insulin Glargine 100 Units/Ml SUB-Q 30 units QHS [facility] Administration Insulin Human Lispro 0 unit 07/17/20 11:30 07/19/20 08:26 Insulin Lispro 100 Unit/Ml SUB-Q 10 unit ACHS [facility] Administration Protocol Isosorbide Dinitrate 10 mg 07/18/20 15:00 07/19/20 08:27 Isosorbide Dinitrate 10 Mg Tab PO 10 mg TID [facility] Administration Metoclopramide HCl 10 mg 07/16/20 21:51 Metoclopramide 10 Mg/2 Ml Inj IV Q6H PRN Nausea And Vomiting Morphine Sulfate 2 mg 07/16/20 21:51 07/16/20 22:22 Morphine 2 Mg/1 Ml Inj IV 2 mg Q4H PRN Administration Pain, Moderate (4-6) Ondansetron HCl 4 mg 07/16/20 21:51 Ondansetron 4 Mg/2 Ml Inj IV Q3H PRN Nausea And Vomiting Prednisone 40 mg 07/19/20 10:00 07/19/20 09:00 Prednisone 20 Mg Tab PO 07/22/20 10:01 40 mg QDAY LISA Administration Sodium Chloride 10 ml 07/16/20 22:00 07/19/20 09:01 Sodium Chloride 0.9% 10 Ml Flush Syringe IV 10 ml BID LISA Administration Sodium Chloride 10 ml 07/16/20 21:51 Sodium Chloride 0.9% 10 Ml Flush Syringe IV PRN PRN LINE FLUSH
[2020-07-19] MEDS ORDERED: INSULIN REGULAR, HUMAN 100 UNITS/1 ML SUB-Q NR (09:28)
--- NOTE | 2020-07-19 09:29 | Progress Note ---
Assessment and Plan Assessment and plan: 74-year-old female with hypertension, type 2 diabetes, coronary artery disease, CHF, s/p CABG and morbid obesity presents with increasing shortness of breath for the last 2 days. Patient was brought in by EMS was given nebulizer treatments in the emergency transport. Patient denies cough. Patient is normally on 4 L nasal cannula oxygen at home. Refusing CPAP by EMS. Patient has also fever. Did not have Covid vaccine or Covid infection. Lives with her daughters. Patient also wheezing. No exacerbating or relieving factors. Patient also has a small sacral wound in the sacral region and the left foot. Low-grade fever present. Home medications are not listed. 07/17: Patient has been weaned down to nasal cannula 2L. Pulmonary, cardiology and nephrology consulted nephrology input is noted. We will downgrade the patient to IMCU we will continue current work-up we will give a full dose of Lovenox while further explored VQ scan to evaluate for pulmonary embolism. Elevated troponin could be secondary to poor renal clearance due to worsening renal function versus a true NSTEMI will await cardiology evaluation although in the setting of congestive heart failure this may also be the reason. Patient did receive some Lasix in the ED. Will wean down steroid therapy at this time. Per cardiology - will obtain Echo, will also defer diuretics to them. Strict I's and O's. DM- Start on insulin, with high dose humlin sliding scale and Lantus at night Down grade to IMC. If VQ scan shows no pulmonary embolism we will downgrade to heparin subcu. Discussed with family. Wound care has been consulted to review bilateral lower extremity wounds. We will speak to daughter to obtain further medical records. 07/18: Patient remains on 2 L of oxygen improving respiratory catalan Doppler of the lower extremity was negative patient refused a VQ scan. Discussed with housekeeping manager considering worsening renal function we will repeat chest x-ray this morning. Per housekeeping manager patient may be on the dry side considering improvement in respiratory status. Based on the finding of the chest x-ray may consider giving back some fluids. We will continue to hold Lasix at this time. Mild hyperkalemia noted we will give a dose of Kayexalate. Blood sugar was noted to be significantly elevated adjusted insulin will monitor if improving patient can be transferred to telemetry. I also discussed with the daughter and updated her medical condition at this time. Continue wound care management for recent surgical procedure of the left foot. Weight loss counseling provided 07/19: Patient seen and examined respiratory status improving although still with tachycardia. While this is improving this may also be secondary to deconditioning. Renal function still elevated not yet down to baseline. Patient now on amiodarone drip to assist with management of congestive heart failure. Cardiology and renal and nephrology input noted. Will request out of bed to chair as per patient's request with mailing machine assistant. Echocardiogram reviewed EF 25 to 30%. Blood sugar still elevated will adjust insulin therapy for better control. Continue prednisone which could also be playing a role in elevated blood sugar will monitor closely. Wound care continue to monitor for left foot recent surgery. (1) Acute respiratory failure with hypoxia and hypercapnia Current Visit: Yes Status: Acute Plan to address problem: Patient is hypoxic and hypercarbic. Patient is refusing CPAP but was convinced to keep the CPAP/BiPAP IV Solu-Medrol and IV antibiotics and duo nebs [id number] and as needed Intubation if necessary Composite Bond Worker consult requested by Dr. Amaral (2) SIRS (systemic inflammatory response syndrome) Current Visit: Yes Status: Acute Plan to address problem: Patient has fever tachypnea tachycardia. Consults systemic inflammatory response syndrome (3) COPD with exacerbation Current Visit: Yes Status: Acute Plan to address problem: IV steroids Solu-Medrol 80 mg every 8 hours IV antibiotics and duo nebs [id number] and as needed. Continue CPAP Intubation if necessary Composite Bond Worker consult requested (4) Hypertension Current Visit: Yes Status: Chronic Qualifiers: Hypertension type: essential hypertension Qualified Code(s): I10 - Essential (primary) hypertension Plan to address problem: No home medications. 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 Plan to address problem: No home medications Check hemoglobin A1c Coverage for now We will call the family and find out the home medication (7) CHF (congestive heart failure) Current Visit: Yes Status: Acute Qualifiers: Heart failure type: combined systolic and diastolic Plan to address problem: BNP is in the 900s Echocardiogram Gentle hydration for 10 to 12 hours because of the ELMA (8) ELMA (acute kidney injury) Current Visit: Yes Status: Acute Plan to address problem: Secondary to vasomotor nephropathy Gentle hydration for 12 hours only Recheck the creatinine level Nephrology consult if necessary (9) Elevated troponin Current Visit: Yes Status: Acute Plan to address problem: Possible troponin leak We will get serial troponins Cardiology consult and echocardiogram requested for ejection fraction (10) hyperkalemia (11)DVT prophylaxis Current Visit: Yes Status: Acute Plan to address problem: On heparin and GI prophylaxis History Interval history: Patient seen and examined this morning sitting up reports improvement in shortness of breath. States she would like to sit up on recheck today. Blood sugar still elevated still with tachycardia. Hospitalist Physical - Physical exam Narrative exam: General appearance: Present: mild distress, well-nourished, morbidly obese - EENT Eyes: Present: PERRL ENT: hearing intact, clear oral mucosa - Neck Neck: Present: supple, normal ROM - Respiratory Respiratory effort: Not labored Respiratory: bilateral: mild rhonchi, wheezing but some improvement - Cardiovascular Heart rate: 100 Rhythm: regular Heart Sounds: Present: S1 & S2. Absent: rub, click - Extremities Extremities: pulses symmetrical, No edema, abnormal (Stage I sacral decubitus ulcer. Left foot ulcer) Extremity abnormal: other (Stage I sacral decubitus ulcer, left foot ulcer) Peripheral Pulses: within normal limits - Abdominal General gastrointestinal: Present: soft, non-tender, non-distended, normal bowel sounds Female genitourinary: Present: normal - Integumentary Integumentary: Present: Skin hypopigmentation, dressing bilateral lower ext, dressing over the left foot following surgical procedure. - Musculoskeletal Musculoskeletal: gait normal, strength equal bilaterally - Psychiatric Psychiatric: appropriate mood/affect, intact judgment & insight - Neurologic Neurologic: CNII-XII intact, moves all extremities - Allied Health Allied health notes reviewed: nursing, case management - Constitutional Vitals: Temp Pulse Resp BP Pulse Ox 97.5 F L 100 H 18 128/69 99 07/19/20 07:35 07/19/20 09:00 07/19/20 08:00 07/19/20 09:00 07/19/20 08:30 General appearance: Present: severe distress, well-nourished HEART Score - HEART Score Age: > 65 Risk factors: > 3 risk factors or hx of atherosclerotic disease Troponin: Troponin T 0.485 ng/mL (0.00-0.029) H* D 07/17/20 13:50 - Critical Actions Critical Actions: 4-6 pts:12-16.6% risk of adverse cardiac event. Should be admitted Results - Labs CBC & Chem 7: 07/17/20 08:19 07/19/20 07:49 Labs: Laboratory Last Values WBC 10.4 K/mm3 (4.5-11.0) 07/17/20 08:19 RBC 4.29 M/mm3 (3.65-5.03) 07/17/20 08:19 Hgb 12.4 gm/dl (10.1-14.3) 07/17/20 08:19 Hct 37.8 % (30.3-42.9) 07/17/20 08:19 MCV 88 fl (79-97) 07/17/20 08:19 MCH 29 pg (28-32) 07/17/20 08:19 MCHC 33 % (30-34) 07/17/20 08:19 RDW 15.7 % (13.2-15.2) H 07/17/20 08:19 Plt Count 204 K/mm3 (140-440) 07/17/20 08:19 Lymph % (Auto) 7.1 % (13.4-35.0) L 07/17/20 08:19 Warren % (Auto) 3.9 % (0.0-7.3) 07/17/20 08:19 Eos % (Auto) 0.1 % (0.0-4.3) 07/17/20 08:19 Baso % (Auto) 0.3 % (0.0-1.8) 07/17/20 08:19 Lymph # (Auto) 0.7 K/mm3 (1.2-5.4) L 07/17/20 08:19 Warren # (Auto) 0.4 K/mm3 (0.0-0.8) 07/17/20 08:19 Eos # (Auto) 0.0 K/mm3 (0.0-0.4) 07/17/20 08:19 Baso # (Auto) 0.0 K/mm3 (0.0-0.1) 07/17/20 08:19 Seg Neutrophils % 88.6 % (40.0-70.0) H 07/17/20 08:19 Seg Neutrophils # 9.2 K/mm3 (1.8-7.7) H 07/17/20 08:19 D-Dimer 1508.10 ng/mlDDU (0-234) H 07/16/20 15:21 ABG pH 7.283 (7.320-7.450) L 07/16/20 15:02 POC ABG pCO2 59.0 mmHg (32.0-48.0) H 07/16/20 15:02 POC ABG pO2 163.4 mmHg (83-108) H 07/16/20 15:02 POC ABG HCO3 27.3 07/16/20 15:02 ABG O2 Saturation 99.3 (0-100) 07/16/20 15:02 POC ABG Base Excess -0.4 07/16/20 15:02 ABG Hemoglobin 12.3 (12.0-17.5) 07/16/20 15:02 ABG Oxyhemoglobin 98.4 (94-98) H 07/16/20 15:02 ABG Methemoglobin 0.3 (0.0-1.5) 07/16/20 15:02 ABG Sodium 138.1 mmol/L (136.0-145.0) 07/16/20 15:02 ABG Potassium 3.6 mmol/L (3.40-4.50) 07/16/20 15:02 ABG Chloride 98.0 mmol/L (98-107) 07/16/20 15:02 ABG Glucose 240 mg/dL (65-95) H 07/16/20 15:02 Carboxyhemoglobin 0.6 (0.5-1.5) 07/16/20 15:02 FiO2 % 35.0 07/16/20 15:02 Sodium 136 mmol/L (137-145) L 07/19/20 07:49 Potassium 3.8 mmol/L (3.6-5.0) D 07/19/20 07:49 Chloride 94.9 mmol/L (98-107) L 07/19/20 07:49 Carbon Dioxide 28 mmol/L (22-30) 07/19/20 07:49 Anion Gap 17 mmol/L 07/19/20 07:49 BUN 59 mg/dL (7-17) H 07/19/20 07:49 Creatinine 2.3 mg/dL (0.6-1.2) H 07/19/20 07:49 Estimated GFR 25 ml/min 07/19/20 07:49 BUN/Creatinine Ratio 26 % 07/19/20 07:49 Glucose 444 mg/dL (65-100) H 07/19/20 07:49 POC Glucose 441 mg/dL (70-105) H 07/19/20 07:34 Hemoglobin A1c 7.5 % (4-6) H 07/17/20 08:19 Calcium 8.7 mg/dL (8.4-10.2) 07/19/20 07:49 Ferritin 443.8 ng/mL (10.0-200.0) H 07/16/20 15:21 Ferritin 459.2 ng/mL (10.0-200.0) H 07/16/20 15:21 Total Bilirubin 0.30 mg/dL (0.1-1.2) 07/17/20 08:19 AST 57 units/L (5-40) H 07/17/20 08:19 ALT 49 units/L (7-56) 07/17/20 08:19 Alkaline Phosphatase 97 units/L (35-129) 07/17/20 08:19 Lactate Dehydrogenase 557 units/L (91-180) H 07/16/20 15:21 Troponin T 0.485 ng/mL (0.00-0.029) H* D 07/17/20 13:50 C-Reactive Protein 5.00 mg/dL (0.00-1.30) H 07/16/20 15:21 NT-Pro-B Natriuret Pep 86007 pg/mL (0-900) H 07/18/20 09:42 Total Protein 8.3 g/dL (6.3-8.2) H 07/17/20 08:19 Albumin 3.2 g/dL (3.9-5) L 07/17/20 08:19 Albumin/Globulin Ratio 0.6 % 07/17/20 08:19 Triglycerides 91 mg/dL (2-149) 07/16/20 15:21 Cholesterol 199 mg/dL (50-199) 07/16/20 15:21 LDL Cholesterol Direct 132 mg/dL (50-130) H 07/16/20 15: HDL Cholesterol 52 mg/dL (40-59) 07/16/20 15: Cholesterol/HDL Ratio 3.82 % 07/16/20 15:21 Procalcitonin 0.08 ng/mL (<0.15) 07/16/20 15:21 Arterial Blood Glucose 240 mg/dL (65-95) H 07/16/20 15:02 Arterial Blood Ionized Calcium 4.7 mg/dL (4.6-5.3) 07/16/20 15:02 Urine Color Yellow (Yellow) 07/17/20 09:52 Urine Turbidity Slightly-cloudy (Clear) 07/17/20 09:52 Urine pH 5.0 (5.0-7.0) 07/17/20 09:52 Ur Specific [place] 1.013 (1.003-1.030) 07/17/20 09:52 Urine Protein 100 mg/dl mg/dL (Negative) 07/17/20 09:52 Urine Glucose (UA) Neg mg/dL (Negative) 07/17/20 09:52 Urine Ketones Neg mg/dL (Negative) 07/17/20 09:52 Urine Blood Neg (Negative) 07/17/20 09:52 Urine Nitrite Neg (Negative) 07/17/20 09:52 Urine Bilirubin Neg (Negative) 07/17/20 09:52 Urine Urobilinogen < 2.0 mg/dL (<2.0) 07/17/20 09:52 Ur Leukocyte Esterase Neg (Negative) 07/17/20 09:52 Urine WBC (Auto) 1.0 /HPF (0.0-6.0) 07/17/20 09:52 Urine RBC (Auto) 2.0 /HPF (0.0-6.0) 07/17/20 09:52 U Epithel Cells (Auto) 12.0 /HPF (0-13.0) 07/17/20 09:52 Hyaline Casts 1 /LPF 07/17/20 09:52 Urine Mucus Few /HPF 07/17/20 09:52 Urine Yeast (Budding) 1+ /HPF 07/17/20 09:52 Urine Eosinophils None seen (None Seen) 07/17/20 17:50 Coronavirus (PCR) Negative (Negative) 07/16/20 09:10 Hepatitis A IgM Ab Non-reactive (NonReactive) 07/17/20 13:50 Hep Bs Antigen Non-reactive (Negative) 07/17/20 13:50 Hep B Core IgM Ab Non-reactive (NonReactive) 07/17/20 13:50 Hepatitis C Antibody Non-reactive (NonReactive) 07/17/20 13:50 Microbiology: Microbiology 07/16/20 15:21 Peripheral/Venous Blood Culture - Preliminary NO GROWTH AFTER 48 HOURS 07/16/20 15:21 Peripheral/Venous Blood Culture - Preliminary NO GROWTH AFTER 48 HOURS [place]/IV: Voiding Method External Female Catheter Active Medications - Current Medications Current Medications: Generic Name Dose Route Start Last Admin Trade Name Freq PRN Reason Stop Dose Admin Acetaminophen 650 mg 07/16/20 21:51 Acetaminophen 325 Mg Tab PO Q4H PRN Pain MILD(1-3)/Fever >100.5/LEE Albuterol 2.5 mg 07/17/20 08:41 Albuterol 2.5 Mg/3 Ml Nebu IH Q4HRT PRN Wheezing Albuterol/Ipratropium 1 ampul 07/17/20 14:00 07/19/20 08:27 Ipratropium/Albuterol Sulfate 3 Ml Ampul.Neb IH Not Given TIDRT LISA Alprazolam 0.25 mg 07/18/20 15:21 07/18/20 22:59 Alprazolam 0.25 Mg Tab PO 0.25 mg Q6HR PRN Administration Anxiety Amitriptyline HCl 50 mg 07/17/20 22:00 07/18/20 22:58 Amitriptyline 25 Mg Tab PO 50 mg QHS LISA Administration Arformoterol Tartrate 15 mcg 07/17/20 20:00 07/19/20 08:27 Arformoterol 15 Mcg/2 Ml Nebu IH 15 mcg Q12HRT LISA Administration Aspirin 81 mg 07/18/20 14:00 07/19/20 09:00 Aspirin Ec 81 Mg Tab PO 81 mg QDAY LISA Administration Budesonide 0.5 mg 07/17/20 20:00 07/19/20 08:26 Budesonide 0.5 Mg/2 Ml Nebu IH 0.5 mg Q12HRT LISA Administration Carvedilol 6.25 mg 07/18/20 12:00 07/19/20 09:00 Carvedilol 6.25 Mg Tab PO 6.25 mg BID LISA Administration Clopidogrel Bisulfate 75 mg 07/19/20 10:00 07/19/20 09:00 Clopidogrel 75 Mg Tab PO 75 mg QDAY LISA Administration Famotidine 20 mg 07/18/20 10:00 07/19/20 09:00 Famotidine 20 Mg Tab PO 20 mg DAILY LISA Administration Furosemide 40 mg 07/19/20 09:18 Furosemide 40 Mg/4 Ml Inj IV 07/19/20 09:19 ONCE ONE Heparin Sodium (Porcine) 5,000 unit 07/18/20 06:00 07/19/20 05:44 Heparin 5,000 Unit/1 Ml Vial SUB-Q 5,000 unit Q8HR LISA Administration Hydralazine HCl 25 mg 07/17/20 22:00 07/19/20 05:44 Hydralazine 25 Mg Tab PO 25 mg Q8HR LISA Administration Hydromorphone HCl 0.5 mg 07/16/20 21:51 07/17/20 22:28 Hydromorphone 1 Mg/1 Ml Inj IV 0.5 mg Q3H PRN Administration Pain , Severe (7-10) Milrinone Lactate/Dextrose 20 mg in 100 mls @ 15.581 mls/hr 07/18/20 11:00 07/19/20 08:26 Milrinone-D5w 20 Mg/100 Ml IV 07/22/20 10:59 0.375 mcg/kg/min DIRECT LISA 15.581 mls/hr Administration Protocol 0.375 MCG/KG/MIN Insulin Glargine 40 units 07/19/20 09:28 Insulin Glargine 100 Units/Ml SUB-Q QHS LISA Insulin Human Lispro 0 unit 07/17/20 11:30 07/19/20 08:26 Insulin Lispro 100 Unit/Ml SUB-Q 10 unit ACHS [facility] Administration Protocol Insulin Human Regular 20 units 07/19/20 09:28 Insulin Regular, Human 100 Units/1 Ml SUB-Q 07/19/20 09:29 ONCE ONE Isosorbide Dinitrate 10 mg 07/18/20 15:00 07/19/20 08:27 Isosorbide Dinitrate 10 Mg Tab PO 10 mg TID LISA Administration Metoclopramide HCl 10 mg 07/16/20 21:51 Metoclopramide 10 Mg/2 Ml Inj IV Q6H PRN Nausea And Vomiting Morphine Sulfate 2 mg 07/16/20 21:51 07/16/20 22:22 Morphine 2 Mg/1 Ml Inj IV 2 mg Q4H PRN Administration Pain, Moderate (4-6) Ondansetron HCl 4 mg 07/16/20 21:51 Ondansetron 4 Mg/2 Ml Inj IV Q3H PRN Nausea And Vomiting Prednisone 40 mg 07/19/20 10:00 07/19/20 09:00 Prednisone 20 Mg Tab PO 07/22/20 10:01 40 mg QDAY LISA Administration Sodium Chloride 10 ml 07/16/20 22:00 07/19/20 09:01 Sodium Chloride 0.9% 10 Ml Flush Syringe IV 10 ml BID LISA Administration Sodium Chloride 10 ml 07/16/20 21:51 Sodium Chloride 0.9% 10 Ml Flush Syringe IV PRN PRN LINE FLUSH Nutrition/Malnutrition Assess - Dietary Evaluation Nutrition/Malnutrition Findings: Nutrition Notes Start: 07/17/20 10:55 Freq: Status: Active Protocol: Document 07/17/20 10:55 NJLADY (Rec: 07/17/20 11:01 [facility] [id number]) Nutrition Notes Need for Assessment 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 She was admitted with c /o increasing SOB; on 4L oxygen via [place] at home. Burn Absent Trauma Absent Minimum of two criteria No #1 Nutrition Diagnosis Predicted suboptimal energy intake Etiology increased work of breathing, possible COVID-19 As Evidenced by Signs and Symptoms pt admitted with c/o SOB Is patient on ventilator? No Is Patient Ambulatory and/or Out of Bed No REE-([facility]-confined to bed) 2223.156 Kcal/Kg value to use for calculation 12 Approximate Energy Requirements Using 1662 kcal/Kg Calculation Used for Recommendations Kcal/kg Additional Notes Pro needs up to 2.5g/kg IBW: up to 125g/day Fluid needs 1ml/kcal Nutrition Intervention Change Diet Order: Add consistent CHO modifier to current diet order Goal #1 PO tolerance Goal #2 PO intake of meals to meet at least 75% energy and pro needs Anticipated Discharge Needs: CHO-controlled, heart-healthy diet Follow-Up By: 07/20/20 Additional Comments F/U: intakes
--- NOTE | 2020-07-19 11:10 | Progress Note ---
Assessment and Plan Acute pulmonary edema Acute systolic heart failure NSTEMI Hx of CAD with 4 vessel coronary artery bypass at [place] noncompliant with cardiac follow up Acute renal failure Morbid obesity Chronic bilateral leg ulcers Hypertension Diabetes An echocardiogram demonstrates a decrease left ventricular ejection fraction 25- 30%. Recommendations: Fluid restriction and low sodium diet. Aggressive medical therapy for systolic heart failure including a trial of intravenous milrinone therapy. Continue medical therapy for coronary artery disease. Subjective Date of service: 07/19/20 Interval history: Patient is sitting up in bed and appears comfortable. She denies chest pain. Still short of breath with minimal exertion. IV milrinone continues. Objective Vital Signs Temp Pulse Pulse Pulse Resp Resp BP 07/19/20 09:00 100 H 128/69 07/19/20 08:30 07/19/20 08:27 101 H 128/69 07/19/20 08:00 107 H 18 07/19/20 07:55 102 H 07/19/20 07:35 97.5 F L 101 H 18 128/69 07/19/20 05:44 120 H 119/64 07/19/20 04:00 120 H 07/19/20 03:52 97.6 F 110 H 19 119/64 07/19/20 00:24 120 H 18 07/19/20 00:00 120 H 07/18/20 23:32 98.2 F 124 H 18 145/70 07/18/20 22:58 127 H 145/65 07/18/20 22:00 100 H 21 07/18/20 21:28 07/18/20 20:56 98.0 F 127 H 18 145/65 07/18/20 20:11 129 H 12 181/97 07/18/20 20:01 130 H 14 181/97 07/18/20 20:00 124 H 16 07/18/20 19:51 130 H 15 148/75 07/18/20 19:41 19 148/75 07/18/20 19:31 127 H 18 148/75 07/18/20 19:21 125 H 19 148/75 07/18/20 19:11 123 H 14 148/75 07/18/20 19:01 12 148/75 07/18/20 18:51 128 H 11 L 150/69 07/18/20 18:41 127 H 16 150/69 07/18/20 18:31 126 H 25 H 150/69 07/18/20 18:21 126 H 21 150/69 07/18/20 18:11 132 H 20 150/69 07/18/20 18:01 130 H 15 150/69 07/18/20 17:51 133 H 21 146/61 07/18/20 17:41 136 H 18 146/61 07/18/20 17:31 125 H 25 H 146/61 07/18/20 17:21 124 H 12 146/61 07/18/20 17:11 126 H 15 146/61 07/18/20 17:01 125 H 14 146/61 07/18/20 16:51 126 H 17 152/68 07/18/20 16:41 128 H 28 H 152/68 07/18/20 16:31 126 H 20 152/68 07/18/20 16:21 126 H 21 152/68 07/18/20 16:11 126 H 18 152/68 07/18/20 16:01 126 H 24 152/68 07/18/20 16:00 124 H 126 H 15 07/18/20 15:51 128 H 15 144/79 07/18/20 15:41 139 H 24 144/79 07/18/20 15:31 122 H 17 158/68 07/18/20 15:21 124 H 22 158/68 07/18/20 15:11 126 H 124 H 27 H 18 158/68 07/18/20 15:01 127 H 17 158/68 07/18/20 14:51 118 H 24 158/68 07/18/20 14:41 116 H 29 H 158/68 07/18/20 14:31 118 H 20 158/68 07/18/20 14:21 118 H 18 158/68 07/18/20 14:11 115 H 18 158/68 07/18/20 14:01 115 H 16 158/68 07/18/20 13:51 109 H 21 174/80 07/18/20 13:41 114 H 25 H 174/80 07/18/20 13:31 107 H 20 174/80 07/18/20 13:21 110 H 18 174/80 07/18/20 13:11 112 H 14 174/80 07/18/20 13:01 116 H 15 174/80 07/18/20 12:51 109 H 27 H 172/77 07/18/20 12:41 109 H 20 172/77 07/18/20 12:31 109 H 19 172/77 07/18/20 12:21 111 H 16 172/07/18/20 12:11 108 H 12 186/85 07/18/20 12:00 115 H 118 H 25 H 186/85 07/18/20 11:51 98.1 F 105 H 21 172/77 07/18/20 11:50 98.1 F 07/18/20 11:41 109 H 15 172/07/18/20 11:31 106 H 20 172/77 07/18/20 11:21 99 H 19 172/07/18/20 11:11 104 H 20 172/77 Pulse Ox 07/19/20 09:00 07/19/20 08:30 99 07/19/20 08:27 07/19/20 08:00 07/19/20 07:55 07/19/20 07:35 92 07/19/20 05:44 07/19/20 04:00 07/19/20 03:52 93 07/19/20 00:24 99 07/19/20 00:00 07/18/20 23:32 91 07/18/20 22:58 07/18/20 22:00 99 07/18/20 21:28 99 07/18/20 20:56 98 07/18/20 20:11 99 07/18/20 20:01 100 07/18/20 20:00 07/18/20 19:51 100 07/18/20 19:41 99 07/18/20 19:31 100 07/18/20 19:21 100 07/18/20 19:11 100 07/18/20 19:01 100 07/18/20 18:51 100 07/18/20 18:41 100 07/18/20 18:31 99 07/18/20 18:21 100 07/18/20 18:11 95 07/18/20 18:01 96 07/18/20 17:51 97 07/18/20 17:41 92 07/18/20 17:31 99 07/18/20 17:21 100 07/18/20 17:11 99 07/18/20 17:01 100 07/18/20 16:51 07/18/20 16:41 07/18/20 16:31 07/18/20 16:21 07/18/20 16:11 99 07/18/20 16:01 98 07/18/20 16:00 99 07/18/20 15:51 97 07/18/20 15:41 07/18/20 15:31 07/18/20 15:21 100 07/18/20 15:11 07/18/20 15:01 98 07/18/20 14:51 99 07/18/20 14:41 07/18/20 14:31 07/18/20 14:21 07/18/20 14:11 07/18/20 14:01 07/18/20 13:51 07/18/20 13:41 07/18/20 13:31 07/18/20 13:21 99 07/18/20 13:11 98 07/18/20 13:01 100 07/18/20 12:51 07/18/20 12:41 100 07/18/20 12:31 100 07/18/20 12:21 100 07/18/20 12:11 07/18/20 12:00 98 07/18/20 11:51 07/18/20 11:50 07/18/20 11:41 07/18/20 11:31 07/18/20 11:21 100 07/18/20 11:11 100 - Physical Examination General: No Apparent Distress, Other (obese) HEENT: Positive: PERRL Neck: Positive: neck supple Cardiac: Positive: Reg Rate and Rhythm Lungs: Positive: Decreased Breath Sounds Neuro: Positive: Grossly Intact Skin: Positive: Other (Vitiligo) Extremities: Present: +1 Edema - Labs and Meds Comprehensive Metabolic Panel 07/19/20 Range/Units 07:49 Sodium 136 L (137-145) mmol/L Potassium 3.8 D (3.6-5.0) mmol/L Chloride 94.9 L (98-107) mmol/L Carbon Dioxide 28 (22-30) mmol/L BUN 59 H (7-17) mg/dL Creatinine 2.3 H (0.6-1.2) mg/dL Glucose 444 H (65-100) mg/dL Calcium 8.7 (8.4-10.2) mg/dL
[2020-07-19] MEDS: AMITRIPTYLINE 25 MG TAB PO SCH (22:31)
[2020-07-19] MEDS: INSULIN GLARGINE 100 UNITS/ML SUB-Q SCH (22:33)
[2020-07-20] MEDS: MILRINONE-D5W 20 MG/100 ML 20 MG/100 ML BAG IV SCH ×3 (05:33→17:27)
[2020-07-20] MEDS: hydrALAZINE 25 MG TAB PO SCH ×3 (05:33→21:43)
[2020-07-20] MEDS: HEPARIN 5,000 UNIT/1 ML VIAL SUB-Q SCH ×3 (05:33→21:43)
[2020-07-20] MEDS: INSULIN LISPRO 100 UNIT/ML SUB-Q SCH ×4 (08:00→21:44)
[2020-07-20 08:23] LABS: Hematocrit 32.3 % (30.3-42.9); Hemoglobin 10.7 gm/dl (10.1-14.3); Mean Corpuscular HGB Conc 33 % (30-34); Mean Corpuscular Volume 88 fl (79-97); Platelet Count 207 K/mm3 (140-440); Red Blood Count 3.68 M/mm3 (3.65-5.03); Red Cell Distribution Width 15.5 % (13.2-15.2)
--- NOTE | 2020-07-20 08:27 | Progress Note ---
Assessment and Plan 74 y/o female with acute respiratory failure, concern for new onset heart failure. 07/20/20: Continue supplemental O2. Arrange outpatient PSG. Will continue to follow. 07/19/20: Continue supplemental O2. Echo shows systolic heart failure but with worsening Cr, renal holding diuretics, now on inotropic therapy. 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 Will continue to follow. 1. Follow up echo 2. Bipap QHS, given patient body habitus, could have HANK 3. BP control 4. Monitor strict I/O Subjective Date of service: 07/20/20 Interval history: No acute events. Stable on 2 liters. Did not wear PPV last night. Objective Vital Signs - 12hr 07/19/20 07/19/20 07/19/20 22:00 22:31 22:32 Temperature Pulse Rate 107 H 100 H 100 H Pulse Rate [ From Monitor] Respiratory Rate Blood Pressure 131/61 131/61 O2 Sat by Pulse Oximetry 07/19/20 07/19/20 07/20/20 23:00 23:18 03:36 Temperature 97.8 F 97.7 F Pulse Rate 116 H 116 H Pulse Rate [ 120 H From Monitor] Respiratory 22 19 18 Rate Blood Pressure 126/47 114/56 O2 Sat by Pulse 98 98 98 Oximetry 07/20/20 05:33 Temperature Pulse Rate 119 H Pulse Rate [ From Monitor] Respiratory Rate Blood Pressure 114/56 O2 Sat by Pulse Oximetry Constitutional: no acute distress, alert, other (morbidly obese) Eyes: non-icteric Effort: normal Ascultation: Bilateral: diminished breath sounds, rales Percussion: Bilateral: not dull Tactile fremitus: Bilateral: normal Cardiovascular: regular rate and rhythm Gastrointestinal: normoactive bowel sounds, soft CBC and BMP: 07/20/20 07:07 07/19/20 07:49 ABG, PT/INR, D-dimer: ABG ABG pH 7.283 (7.320-7.450) L 07/16/20 15:02 POC ABG pCO2 59.0 mmHg (32.0-48.0) H 07/16/20 15:02 POC ABG pO2 163.4 mmHg (83-108) H 07/16/20 15:02 POC ABG HCO3 27.3 07/16/20 15:02 ABG O2 Saturation 99.3 (0-100) 07/16/20 15:02 PT/INR, D-dimer D-Dimer 1508.10 ng/mlDDU (0-234) H 07/16/20 15:21 Abnormal lab findings: Abnormal Labs 07/16/20 07/16/20 07/16/20 15:02 15: 15:21 WBC 11.6 H RDW 15.7 H Lymph % (Auto) 8.1 L [place] % (Auto) 8.9 H Lymph # (Auto) 0.9 L [place] # (Auto) 1.0 H Seg Neutrophils % 79.7 H Seg Neutrophils # 9.2 H D-Dimer ABG pH 7.283 L POC ABG pCO2 59.0 H POC ABG pO2 163.4 H ABG Oxyhemoglobin 98.4 H ABG Glucose 240 H Sodium Potassium Chloride 96.8 L Carbon Dioxide BUN Creatinine 1.4 H Glucose 211 H POC Glucose Hemoglobin A1c Ferritin AST 80 H Lactate Dehydrogenase Troponin T 0.089 H C-Reactive Protein NT-Pro-B Natriuret Pep Total Protein Albumin 3.8 L LDL Cholesterol Direct 132 H Arterial Blood Glucose 240 H 07/16/20 07/16/20 07/16/20 15:21 15:21 15:21 WBC RDW Lymph % (Auto) [place] % (Auto) Lymph # (Auto) [place] # (Auto) Seg Neutrophils % Seg Neutrophils # D-Dimer 1508.10 H ABG pH POC ABG pCO2 POC ABG pO2 ABG Oxyhemoglobin ABG Glucose Sodium Potassium Chloride Carbon Dioxide BUN Creatinine Glucose POC Glucose Hemoglobin A1c Ferritin 459.2 H AST Lactate Dehydrogenase Troponin T C-Reactive Protein NT-Pro-B Natriuret Pep 904.1 H Total Protein Albumin LDL Cholesterol Direct Arterial Blood Glucose 07/16/20 07/16/20 07/16/20 15:21 15:21 23:28 WBC RDW Lymph % (Auto) [place] % (Auto) Lymph # (Auto) [place] # (Auto) Seg Neutrophils % Seg Neutrophils # D-Dimer ABG pH POC ABG pCO2 POC ABG pO2 ABG Oxyhemoglobin ABG Glucose Sodium Potassium Chloride Carbon Dioxide BUN Creatinine Glucose 223 H POC Glucose 286 H Hemoglobin A1c Ferritin 443.8 H AST Lactate Dehydrogenase 557 H Troponin T C-Reactive Protein 5.00 H NT-Pro-B Natriuret Pep Total Protein Albumin LDL Cholesterol Direct Arterial Blood Glucose 07/17/20 07/17/20 07/17/20 05:21 08:19 08:19 WBC RDW 15.7 H Lymph % (Auto) 7.1 L [place] % (Auto) Lymph # (Auto) 0.7 L [place] # (Auto) Seg Neutrophils % 88.6 H Seg Neutrophils # 9.2 H D-Dimer ABG pH POC ABG pCO2 POC ABG pO2 ABG Oxyhemoglobin ABG Glucose Sodium 136 L Potassium 5.9 H D Chloride 96.9 L Carbon Dioxide 21 L BUN 28 H Creatinine 1.8 H Glucose 350 H POC Glucose 306 H Hemoglobin A1c Ferritin AST 57 H Lactate Dehydrogenase Troponin T C-Reactive Protein NT-Pro-B Natriuret Pep Total Protein 8.3 H Albumin 3.2 L LDL Cholesterol Direct Arterial Blood Glucose 07/17/20 07/17/20 07/17/20 08:19 08:19 08:33 WBC RDW Lymph % (Auto) [place] % (Auto) Lymph # (Auto) [place] # (Auto) Seg Neutrophils % Seg Neutrophils # D-Dimer ABG pH POC ABG pCO2 POC ABG pO2 ABG Oxyhemoglobin ABG Glucose Sodium Potassium Chloride Carbon Dioxide BUN Creatinine Glucose POC Glucose 306 H Hemoglobin A1c 7.5 H Ferritin AST Lactate Dehydrogenase Troponin T 0.369 H* D C-Reactive Protein NT-Pro-B Natriuret Pep Total Protein Albumin LDL Cholesterol Direct Arterial Blood Glucose 07/17/20 07/17/20 07/17/20 11:36 13:50 13:50 WBC RDW Lymph % (Auto) [place] % (Auto) Lymph # (Auto) [place] # (Auto) Seg Neutrophils % Seg Neutrophils # D-Dimer ABG pH POC ABG pCO2 POC ABG pO2 ABG Oxyhemoglobin ABG Glucose Sodium Potassium Chloride 95.2 L Carbon Dioxide 21 L BUN 32 H Creatinine 2.2 H Glucose 348 H POC Glucose 321 H Hemoglobin A1c Ferritin AST Lactate Dehydrogenase Troponin T 0.485 H* D C-Reactive Protein NT-Pro-B Natriuret Pep Total Protein Albumin LDL Cholesterol Direct Arterial Blood Glucose 07/17/20 07/17/20 07/18/20 16:03 21:37 04:51 WBC RDW Lymph % (Auto) [place] % (Auto) Lymph # (Auto) [place] # (Auto) Seg Neutrophils % Seg Neutrophils # D-Dimer ABG pH POC ABG pCO2 POC ABG pO2 ABG Oxyhemoglobin ABG Glucose Sodium 136 L Potassium 5.1 H Chloride 95.8 L Carbon Dioxide BUN 46 H Creatinine 2.1 H Glucose 464 H POC Glucose 352 H 349 H Hemoglobin A1c Ferritin AST Lactate Dehydrogenase Troponin T C-Reactive Protein NT-Pro-B Natriuret Pep Total Protein Albumin LDL Cholesterol Direct Arterial Blood Glucose 07/18/20 07/18/20 07/18/20 07:31 09:42 11:38 WBC RDW Lymph % (Auto) [place] % (Auto) Lymph # (Auto) [place] # (Auto) Seg Neutrophils % Seg Neutrophils # D-Dimer ABG pH POC ABG pCO2 POC ABG pO2 ABG Oxyhemoglobin ABG Glucose Sodium Potassium Chloride Carbon Dioxide BUN Creatinine Glucose POC Glucose 500 H 464 H Hemoglobin A1c Ferritin AST Lactate Dehydrogenase Troponin T C-Reactive Protein NT-Pro-B Natriuret Pep 72814 H Total Protein Albumin LDL Cholesterol Direct Arterial Blood Glucose 07/18/20 07/18/20 07/19/20 16:35 20:58 07:34 WBC RDW Lymph % (Auto) [place] % (Auto) Lymph # (Auto) [place] # (Auto) Seg Neutrophils % Seg Neutrophils # D-Dimer ABG pH POC ABG pCO2 POC ABG pO2 ABG Oxyhemoglobin ABG Glucose Sodium Potassium Chloride Carbon Dioxide BUN Creatinine Glucose POC Glucose 569 H 534 H 441 H Hemoglobin A1c Ferritin AST Lactate Dehydrogenase Troponin T C-Reactive Protein NT-Pro-B Natriuret Pep Total Protein Albumin LDL Cholesterol Direct Arterial Blood Glucose 07/19/20 07/19/20 07/19/20 07:49 12:14 15:46 WBC RDW Lymph % (Auto) [place] % (Auto) Lymph # (Auto) [place] # (Auto) Seg Neutrophils % Seg Neutrophils # D-Dimer ABG pH POC ABG pCO2 POC ABG pO2 ABG Oxyhemoglobin ABG Glucose Sodium 136 L Potassium Chloride 94.9 L Carbon Dioxide BUN 59 H Creatinine 2.3 H Glucose 444 H POC Glucose 353 H 341 H Hemoglobin A1c Ferritin AST Lactate Dehydrogenase Troponin T C-Reactive Protein NT-Pro-B Natriuret Pep Total Protein Albumin LDL Cholesterol Direct Arterial Blood Glucose 07/19/20 07/20/20 07/20/20 20:59 07:07 08:04 WBC 13.3 H RDW 15.5 H Lymph % (Auto) [place] % (Auto) Lymph # (Auto) [place] # (Auto) Seg Neutrophils % Seg Neutrophils # D-Dimer ABG pH POC ABG pCO2 POC ABG pO2 ABG Oxyhemoglobin ABG Glucose Sodium Potassium Chloride Carbon Dioxide BUN Creatinine Glucose POC Glucose 389 H 423 H Hemoglobin A1c Ferritin AST Lactate Dehydrogenase Troponin T C-Reactive Protein NT-Pro-B Natriuret Pep Total Protein Albumin LDL Cholesterol Direct Arterial Blood Glucose
[2020-07-20 08:35] LABS: Calcium 8.5 mg/dL (8.4-10.2)
[2020-07-20] MEDS: ISOSORBIDE DINITRATE 10 MG TAB PO SCH ×3 (08:55→21:48)
[2020-07-20] MEDS: BUDESONIDE 0.5 MG/2 ML NEBU IH SCH ×2 (08:56→21:44)
[2020-07-20] MEDS: IPRATROPIUM/ALBUTEROL SULFATE 3 ML AMPUL.NEB IH SCH ×3 (08:56→21:43)
[2020-07-20] MEDS: ARFORMOTEROL 15 MCG/2 ML NEBU IH SCH ×2 (08:56→21:44)
[2020-07-20] MEDS: ASPIRIN EC 81 MG TAB PO SCH (09:11)
[2020-07-20] MEDS: predniSONE 20 MG TAB PO SCH (09:12)
[2020-07-20] MEDS: FAMOTIDINE 20 MG TAB PO SCH (09:12)
[2020-07-20] MEDS: CLOPIDOGREL 75 MG TAB PO SCH (09:12)
[2020-07-20] MEDS: carvediloL 6.25 MG TAB PO SCH ×2 (09:34→21:43)
--- NOTE | 2020-07-20 09:35 | Progress Note ---
Assessment and Plan Impression * Acute kidney injury * Hyperkalemia * Shortness of breath. Most likely secondary to CHF/COPD * Coronary artery disease. Status post bypass surgery * Hypertension * Diabetes * Morbid obesity * Cardiomyopathy. Ejection fraction 25 to 30% Recommendations * Her renal function seems to be getting worse. * Suspect a possible prerenal /cardiorenal component. She may have a component of ATN as well * Patient's BNP is 34,000 and clinically she appears to be in CHF . Chest x-ray however did not show any acute findings * Patient is currently nonoliguric. She did respond to 40 mg of Lasix yesterday * Fractional excretion of sodium still pending. Discussed with patient's nurse. Specimen to be sent out * Her urine shows 2+ dipstick protein but no blood. She may have some degree of underlying chronic kidney disease * Renal ultrasound is normal * Hepatitis B and C both negative. Follow-up results of vasculitis work-up to rule out pulmonary renal syndrome as well * Hyperkalemia has improved * avoid nephrotoxins * Monitor fluid status and electrolytes closely * If patient renal function continues to worsen, may need to consider renal replacement therapy Subjective Date of service: 07/20/20 Interval history: Patient appears comfortable today. States that her shortness of breath is improving. Currently on milrinone drip. On oxygen supplementation via nasal cannula at 2.5 L Objective - Vital Signs Vital signs: Vital Signs - 12hr 07/19/20 07/19/20 07/19/20 22:00 22:31 22:32 Temperature Pulse Rate 107 H 100 H 100 H Pulse Rate [ From Monitor] Respiratory Rate Blood Pressure 131/61 131/61 O2 Sat by Pulse Oximetry 07/19/20 07/19/20 07/20/20 23:00 23:18 03:36 Temperature 97.8 F 97.7 F Pulse Rate 116 H 116 H Pulse Rate [ 120 H From Monitor] Respiratory 22 19 18 Rate Blood Pressure 126/47 114/56 O2 Sat by Pulse 98 98 98 Oximetry 07/20/20 07/20/20 05:33 08:07 Temperature 98.4 F Pulse Rate 119 H 104 H Pulse Rate [ From Monitor] Respiratory 20 Rate Blood Pressure 114/56 109/57 O2 Sat by Pulse 100 Oximetry - General Appearance General appearance: well-developed, well-nourished, appears stated age, obese EENT: PERRL, mucous membranes moist Neck: no JVD, no thyromegaly Respiratory: Present: Wheezes (Bilateral wheezing) Cardiology: regular, normal heart rate Gastrointestinal: normal, normoactive bowel sounds Integumentary: other (1+ edema. Wrinkling of skin noted. Dressing noted in both feet) - Lab 07/20/20 07:07 07/20/20 07:07 Most recent lab results ABG pH 7.283 (7.320-7.450) L 07/16/20 15:02 ABG O2 Saturation 99.3 (0-100) 07/16/20 15:02 Calcium 8.5 mg/dL (8.4-10.2) 07/20/20 07:07 Medications & Allergies - Medications Allergies/Adverse Reactions: Allergies azithromycin Allergy (Verified 07/16/20 14:10) Unknown codeine Allergy (Verified 07/16/20 14:10) Unknown Sulfa (Sulfonamide Antibiotics) Allergy (Verified 07/16/20 14:11) Unknown Home Medications: Home Medications Medication Instructions Recorded Confirmed Last Taken Type Amitriptyline 25 mg PO DAILY 07/17/20 07/17/20 2 Days Ago History ~07/15/20 Furosemide [Lasix] 40 tab PO BID 07/17/20 07/17/20 07/15/20 History HCTZ 25 tab PO DAILY 07/17/20 07/17/20 07/15/20 History Lyrica 50 mg PO TID 07/17/20 07/17/20 07/15/20 History Rosuvastatin Calcium 40 mg PO HS 07/17/20 07/17/20 07/15/20 History cloNIDine-TTS PATCH [Catapres-Tts 0.1 mg TRANSDERMA TID 07/17/20 07/17/20 Unknown History 0.1MG Patch] hydrALAZINE 25 tab PO Q8H 07/17/20 07/17/20 07/16/20 History Active Medications: Generic Name Dose Route Start Last Admin Trade Name Freq PRN Reason Stop Dose Admin Acetaminophen 650 mg 07/16/20 21:51 Acetaminophen 325 Mg Tab PO Q4H PRN Pain MILD(1-3)/Fever >100.5/LEE Albuterol 2.5 mg 07/17/20 08:41 Albuterol 2.5 Mg/3 Ml Nebu IH Q4HRT PRN Wheezing Albuterol/Ipratropium 1 ampul 07/17/20 14:00 07/20/20 08:56 Ipratropium/Albuterol Sulfate 3 Ml Ampul.Neb IH 1 ampul TIDRT LISA Administration Alprazolam 0.25 mg 07/18/20 15:21 07/18/20 22:59 Alprazolam 0.25 Mg Tab PO 0.25 mg Q6HR PRN Administration Anxiety Amitriptyline HCl 50 mg 07/17/20 22:00 07/19/20 22:31 Amitriptyline 25 Mg Tab PO 50 mg QHS LISA Administration Arformoterol Tartrate 15 mcg 07/17/20 20:00 07/20/20 08:56 Arformoterol 15 Mcg/2 Ml Nebu IH 15 mcg Q12HRT LISA Administration Aspirin 81 mg 07/18/20 14:00 07/20/20 09:11 Aspirin Ec 81 Mg Tab PO 81 mg QDAY LISA Administration Budesonide 0.5 mg 07/17/20 20:00 07/20/20 08:56 Budesonide 0.5 Mg/2 Ml Nebu IH 0.5 mg Q12HRT LISA Administration Carvedilol 6.25 mg 07/18/20 12:00 07/19/20 22:31 Carvedilol 6.25 Mg Tab PO 6.25 mg BID LISA Administration Clopidogrel Bisulfate 75 mg 07/19/20 10:00 07/20/20 09:12 Clopidogrel 75 Mg Tab PO 75 mg QDAY LISA Administration Famotidine 20 mg 07/18/20 10:00 07/20/20 09:12 Famotidine 20 Mg Tab PO 20 mg DAILY LISA Administration Heparin Sodium (Porcine) 5,000 unit 07/18/20 06:00 07/20/20 05:33 Heparin 5,000 Unit/1 Ml Vial SUB-Q 5,000 unit Q8HR LISA Administration Hydralazine HCl 25 mg 07/17/20 22:00 07/20/20 05:33 Hydralazine 25 Mg Tab PO 25 mg Q8HR LISA Administration Hydromorphone HCl 0.5 mg 07/16/20 21:51 07/17/20 22:28 Hydromorphone 1 Mg/1 Ml Inj IV 0.5 mg Q3H PRN Administration Pain , Severe (7-10) Milrinone Lactate/Dextrose 20 mg in 100 mls @ 15.581 mls/hr 07/18/20 11:00 07/20/20 05:33 Milrinone-D5w 20 Mg/100 Ml IV 07/22/20 10:59 0.375 mcg/kg/min DIRECT LISA 15.581 mls/hr Administration Protocol 0.375 MCG/KG/MIN Insulin Glargine 40 units 07/19/20 22:00 07/19/20 22:33 Insulin Glargine 100 Units/Ml SUB-Q 40 units QHS LISA Administration Insulin Human Lispro 0 unit 07/17/20 11:30 07/20/20 08:00 Insulin Lispro 100 Unit/Ml SUB-Q 10 unit ACHS LISA Administration Protocol Insulin Human Regular 10 units 07/20/20 11:30 Insulin Regular, Human 100 Units/1 Ml SUB-Q AC LISA Isosorbide Dinitrate 10 mg 07/18/20 15:00 07/19/20 22:31 Isosorbide Dinitrate 10 Mg Tab PO 10 mg TID LISA Administration Metoclopramide HCl 10 mg 07/16/20 21:51 Metoclopramide 10 Mg/2 Ml Inj IV Q6H PRN Nausea And Vomiting Morphine Sulfate 2 mg 07/16/20 21:51 07/16/20 22:22 Morphine 2 Mg/1 Ml Inj IV 2 mg Q4H PRN Administration Pain, Moderate (4-6) Ondansetron HCl 4 mg 07/16/20 21:51 Ondansetron 4 Mg/2 Ml Inj IV Q3H PRN Nausea And Vomiting Prednisone 40 mg 07/19/20 10:00 07/20/20 09:12 Prednisone 20 Mg Tab PO 07/22/20 10:01 40 mg QDAY LISA Administration Sodium Chloride 10 ml 07/16/20 22:00 07/19/20 22:34 Sodium Chloride 0.9% 10 Ml Flush Syringe IV 10 ml BID LISA Administration Sodium Chloride 10 ml 07/16/20 21:51 Sodium Chloride 0.9% 10 Ml Flush Syringe IV PRN PRN LINE FLUSH
--- NOTE | 2020-07-20 09:38 | Progress Note ---
Assessment and Plan Acute pulmonary edema Acute systolic heart failure NSTEMI Hx of CAD with 4 vessel coronary artery bypass at [facility] noncompliant with cardiac follow up Acute renal failure Morbid obesity Chronic bilateral leg ulcers Hypertension Diabetes An echocardiogram demonstrates a decrease left ventricular ejection fraction 25- 30%. Recommendations: Fluid restriction and low sodium diet. Aggressive medical therapy for systolic heart failure including a trial of intravenous milrinone therapy. Continue medical therapy for coronary artery disease. Statin therapy held due to mild elevation of the aspartate transaminase levels. Subjective Date of service: 07/20/20 Interval history: Patient is resting in bed. No distress noted. Patient has no complaints. Wants to go home. IV milrinone continues. Objective Vital Signs Temp Pulse Pulse Pulse Resp Resp BP 07/20/20 09:34 109/57 07/20/20 08:55 109/57 07/20/20 08:07 98.4 F 104 H 20 109/57 07/20/20 05:33 119 H 114/56 07/20/20 03:36 97.7 F 116 H 18 114/56 07/19/20 23:18 97.8 F 116 H 19 126/47 07/19/20 23:00 120 H 22 07/19/20 22:32 100 H 131/61 07/19/20 22:31 100 H 131/61 07/19/20 22:00 107 H 07/19/20 20:15 07/19/20 20:00 110 H 19 07/19/20 19:41 97.9 F 111 H 18 131/61 07/19/20 15:47 97.6 F 101 H 22 123/49 07/19/20 14:00 105 H 19 07/19/20 13:05 94 H 120/73 07/19/20 13:02 94 H 120/73 07/19/20 12:58 98 H 120/73 07/19/20 12:24 102 H 18 Pulse Ox 07/20/20 09:34 07/20/20 08:55 07/20/20 08:07 100 07/20/20 05:33 07/20/20 03:36 98 07/19/20 23:18 98 07/19/20 23:00 98 07/19/20 22:32 07/19/20 22:31 07/19/20 22:00 07/19/20 20:15 99 07/19/20 20:00 07/19/20 19:41 98 07/19/20 15:47 98 07/19/20 14:00 07/19/20 13:05 07/19/20 13:02 07/19/20 12:58 99 07/19/20 12:24 99 - Physical Examination General: No Apparent Distress, Other (obese) HEENT: Positive: PERRL Neck: Positive: neck supple Cardiac: Positive: Tachycardia Lungs: Positive: Decreased Breath Sounds Neuro: Positive: Grossly Intact Skin: Positive: Other (Vitiligo) Extremities: Present: +1 Edema - Labs and Meds CBC 07/20/20 Range/Units 07:07 WBC 13.3 H (4.5-11.0) K/mm3 RBC 3.68 (3.65-5.03) M/mm3 Hgb 10.7 (10.1-14.3) gm/dl Hct 32.3 (30.3-42.9) % Plt Count 207 (140-440) K/mm3 Comprehensive Metabolic Panel 07/20/20 Range/Units 07:07 Sodium 137 (137-145) mmol/L Potassium 3.5 L (3.6-5.0) mmol/L Chloride 93.1 L (98-107) mmol/L Carbon Dioxide 29 (22-30) mmol/L BUN 68 H (7-17) mg/dL Creatinine 2.7 H (0.6-1.2) mg/dL Glucose 450 H (65-100) mg/dL Calcium 8.5 (8.4-10.2) mg/dL
[2020-07-20 10:31] LABS: Creatinine,Urine 220.7 mg/dL (0.1-20.0)
[2020-07-20 10:34] LABS: Fractional Sodium Excretion 0.1
[2020-07-20] MEDS ORDERED: INSULIN REGULAR, HUMAN 100 UNITS/1 ML SUB-Q SCH (11:30)
--- NOTE | 2020-07-20 12:42 | Progress Note ---
Assessment and Plan Assessment and plan: 74-year-old female with hypertension, type 2 diabetes, coronary artery disease, CHF, s/p CABG and morbid obesity presents with increasing shortness of breath for the last 2 days. Patient was brought in by EMS was given nebulizer treatments in the emergency transport. Patient denies cough. Patient is normally on 4 L nasal cannula oxygen at home. Refusing CPAP by EMS. Patient has also fever. Did not have Covid vaccine or Covid infection. Lives with her daughters. Patient also wheezing. No exacerbating or relieving factors. Patient also has a small sacral wound in the sacral region and the left foot. Low-grade fever present. Home medications are not listed. 07/17: Patient has been weaned down to nasal cannula 2L. Pulmonary, cardiology and nephrology consulted nephrology input is noted. We will downgrade the patient to IMCU we will continue current work-up we will give a full dose of Lovenox while further explored VQ scan to evaluate for pulmonary embolism. Elevated troponin could be secondary to poor renal clearance due to worsening renal function versus a true NSTEMI will await cardiology evaluation although in the setting of congestive heart failure this may also be the reason. Patient did receive some Lasix in the ED. Will wean down steroid therapy at this time. Per cardiology - will obtain Echo, will also defer diuretics to them. Strict I's and O's. DM- Start on insulin, with high dose humlin sliding scale and Lantus at night Down grade to IMC. If VQ scan shows no pulmonary embolism we will downgrade to heparin subcu. Discussed with family. Wound care has been consulted to review bilateral lower extremity wounds. We will speak to daughter to obtain further medical records. 07/18: Patient remains on 2 L of oxygen improving respiratory catalan Doppler of the lower extremity was negative patient refused a VQ scan. Discussed with mortgage protection sales considering worsening renal function we will repeat chest x-ray this morning. Per mortgage protection sales patient may be on the dry side considering improvement in respiratory status. Based on the finding of the chest x-ray may consider giving back some fluids. We will continue to hold Lasix at this time. Mild hyperkalemia noted we will give a dose of Kayexalate. Blood sugar was noted to be significantly elevated adjusted insulin will monitor if improving patient can be transferred to telemetry. I also discussed with the daughter and updated her medical condition at this time. Continue wound care management for recent surgical procedure of the left foot. Weight loss counseling provided 07/19: Patient seen and examined respiratory status improving although still with tachycardia. While this is improving this may also be secondary to deconditioning. Renal function still elevated not yet down to baseline. Patient now on amiodarone drip to assist with management of congestive heart failure. Cardiology and renal and nephrology input noted. Will request out of bed to chair as per patient's request with data control assistant. Echocardiogram reviewed EF 25 to 30%. Blood sugar still elevated will adjust insulin therapy for better control. Continue prednisone which could also be playing a role in elevated blood sugar will monitor closely. Wound care continue to monitor for left foot recent surgery. 07/20: Unfortunately renal function continues to worsen. Patient did not respond to lasix given yesterday, continues on mirilone with improvement in shortness of breath. BG still elevated, will wean steroids further down, add humlin 10 units with meal and recalculate based on need in am. (1) Acute respiratory failure with hypoxia and hypercapnia Current Visit: Yes Status: Acute Plan to address problem: Patient is hypoxic and hypercarbic. Patient is refusing CPAP but was convinced to keep the CPAP/BiPAP IV Solu-Medrol and IV antibiotics and duo nebs [id number] and as needed Intubation if necessary Inventory Associate consult requested by Dr. Amaral (2) SIRS (systemic inflammatory response syndrome) Current Visit: Yes Status: Acute Plan to address problem: Patient has fever tachypnea tachycardia. Consults systemic inflammatory response syndrome (3) COPD with exacerbation Current Visit: Yes Status: Acute Plan to address problem: IV steroids Solu-Medrol 80 mg every 8 hours IV antibiotics and duo nebs [id number] and as needed. Continue CPAP Intubation if necessary Inventory Associate consult requested (4) Hypertension Current Visit: Yes Status: Chronic Qualifiers: Hypertension type: essential hypertension Qualified Code(s): I10 - Essential (primary) hypertension Plan to address problem: No home medications. Initial blood pressure was 131/100 later the blood pressure was 128/75 We will trend the blood pressure and start antihypertensives as necessary (5) Suspected COVID-19 virus infection Current Visit: Yes Status: Acute Plan to address problem: Coronavirus PCR to be sent (6) Type II diabetes mellitus Current Visit: Yes Status: Chronic Qualifiers: Diabetes mellitus fpc insulin use: unspecified fpc insulin use status Plan to address problem: No home medications Check hemoglobin A1c Coverage for now We will call the family and find out the home medication (7) CHF (congestive heart failure) Current Visit: Yes Status: Acute Qualifiers: Heart failure type: combined systolic and diastolic Plan to address problem: BNP is in the 900s Echocardiogram Gentle hydration for 10 to 12 hours because of the ELMA (8) ELMA (acute kidney injury) Current Visit: Yes Status: Acute Plan to address problem: Secondary to vasomotor nephropathy Gentle hydration for 12 hours only Recheck the creatinine level Nephrology consult if necessary (9) Elevated troponin Current Visit: Yes Status: Acute Plan to address problem: Possible troponin leak We will get serial troponins Cardiology consult and echocardiogram requested for ejection fraction (10) hyperkalemia (11)DVT prophylaxis Current Visit: Yes Status: Acute Plan to address problem: On heparin and GI prophylaxis History Interval history: Patient seen and examined this morning sitting up reports improvement in shortness of breath. Hospitalist Physical - Physical exam Narrative exam: General appearance: Present: mild distress, well-nourished, morbidly obese - EENT Eyes: Present: PERRL ENT: hearing intact, clear oral mucosa - Neck Neck: Present: supple, normal ROM - Respiratory Respiratory effort: Not labored Respiratory: bilateral: mild rhonchi, wheezing but some improvement - Cardiovascular Heart rate: 100 Rhythm: regular Heart Sounds: Present: S1 & S2. Absent: rub, click - Extremities Extremities: pulses symmetrical, No edema, abnormal (Stage I sacral decubitus ulcer. Left foot ulcer) Extremity abnormal: other (Stage I sacral decubitus ulcer, left foot ulcer) Peripheral Pulses: within normal limits - Abdominal General gastrointestinal: Present: soft, non-tender, non-distended, normal bowel sounds Female genitourinary: Present: normal - Integumentary Integumentary: Present: Skin hypopigmentation, dressing bilateral lower ext, dressing over the left foot following surgical procedure. - Musculoskeletal Musculoskeletal: gait normal, strength equal bilaterally - Psychiatric Psychiatric: appropriate mood/affect, intact judgment & insight - Neurologic Neurologic: CNII-XII intact, moves all extremities - Allied Health Allied health notes reviewed: nursing, case management - Constitutional Vitals: Temp Pulse Resp BP Pulse Ox 98.0 F 110 H 18 123/52 97 07/20/20 11:29 07/20/20 11:29 07/20/20 11:29 07/20/20 11:29 07/20/20 11:29 General appearance: Present: severe distress, well-nourished HEART Score - HEART Score Age: > 65 Risk factors: > 3 risk factors or hx of atherosclerotic disease Troponin: Troponin T 0.485 ng/mL (0.00-0.029) H* D 07/17/20 13:50 - Critical Actions Critical Actions: 4-6 pts:12-16.6% risk of adverse cardiac event. Should be admitted Results - Labs CBC & Chem 7: 07/20/20 07:07 07/20/20 07:07 Labs: Laboratory Last Values WBC 13.3 K/mm3 (4.5-11.0) H 07/20/20 07:07 RBC 3.68 M/mm3 (3.65-5.03) 07/20/20 07:07 Hgb 10.7 gm/dl (10.1-14.3) 07/20/20 07:07 Hct 32.3 % (30.3-42.9) 07/20/20 07:07 MCV 88 fl (79-97) 07/20/20 07:07 MCH 29 pg (28-32) 07/20/20 07:07 MCHC 33 % (30-34) 07/20/20 07:07 RDW 15.5 % (13.2-15.2) H 07/20/20 07:07 Plt Count 207 K/mm3 (140-440) 07/20/20 07:07 Lymph % (Auto) 7.1 % (13.4-35.0) L 07/17/20 08:19 [place] % (Auto) 3.9 % (0.0-7.3) 07/17/20 08:19 Eos % (Auto) 0.1 % (0.0-4.3) 07/17/20 08:19 Baso % (Auto) 0.3 % (0.0-1.8) 07/17/20 08:19 Lymph # (Auto) 0.7 K/mm3 (1.2-5.4) L 07/17/20 08:19 [place] # (Auto) 0.4 K/mm3 (0.0-0.8) 07/17/20 08:19 Eos # (Auto) 0.0 K/mm3 (0.0-0.4) 07/17/20 08:19 Baso # (Auto) 0.0 K/mm3 (0.0-0.1) 07/17/20 08:19 Seg Neutrophils % 88.6 % (40.0-70.0) H 07/17/20 08:19 Seg Neutrophils # 9.2 K/mm3 (1.8-7.7) H 07/17/20 08:19 D-Dimer 1508.10 ng/mlDDU (0-234) H 07/16/20 15:21 ABG pH 7.283 (7.320-7.450) L 07/16/20 15:02 POC ABG pCO2 59.0 mmHg (32.0-48.0) H 07/16/20 15:02 POC ABG pO2 163.4 mmHg (83-108) H 07/16/20 15:02 POC ABG HCO3 27.3 07/16/20 15:02 ABG O2 Saturation 99.3 (0-100) 07/16/20 15:02 POC ABG Base Excess -0.4 07/16/20 15:02 ABG Hemoglobin 12.3 (12.0-17.5) 07/16/20 15:02 ABG Oxyhemoglobin 98.4 (94-98) H 07/16/20 15:02 ABG Methemoglobin 0.3 (0.0-1.5) 07/16/20 15:02 ABG Sodium 138.1 mmol/L (136.0-145.0) 07/16/20 15:02 ABG Potassium 3.6 mmol/L (3.40-4.50) 07/16/20 15:02 ABG Chloride 98.0 mmol/L (98-107) 07/16/20 15:02 ABG Glucose 240 mg/dL (65-95) H 07/16/20 15:02 Carboxyhemoglobin 0.6 (0.5-1.5) 07/16/20 15:02 FiO2 % 35.0 07/16/20 15:02 Sodium 137 mmol/L (137-145) 07/20/20 07:07 Potassium 3.5 mmol/L (3.6-5.0) L 07/20/20 07:07 Chloride 93.1 mmol/L (98-107) L 07/20/20 07:07 Carbon Dioxide 29 mmol/L (22-30) 07/20/20 07:07 Anion Gap 18 mmol/L 07/20/20 07:07 BUN 68 mg/dL (7-17) H 07/20/20 07:07 Creatinine 2.7 mg/dL (0.6-1.2) H 07/20/20 07:07 Estimated GFR 21 ml/min 07/20/20 07:07 BUN/Creatinine Ratio 25 % 07/20/20 07:07 Glucose 450 mg/dL (65-100) H 07/20/20 07:07 POC Glucose 423 mg/dL (70-105) H 07/20/20 08:04 Hemoglobin A1c 7.5 % (4-6) H 07/17/20 08:19 Calcium 8.5 mg/dL (8.4-10.2) 07/20/20 07:07 Ferritin 443.8 ng/mL (10.0-200.0) H 07/16/20 15:21 Ferritin 459.2 ng/mL (10.0-200.0) H 07/16/20 15:21 Total Bilirubin 0.30 mg/dL (0.1-1.2) 07/17/20 08:19 AST 57 units/L (5-40) H 07/17/20 08:19 ALT 49 units/L (7-56) 07/17/20 08:19 Alkaline Phosphatase 97 units/L (35-129) 07/17/20 08:19 Lactate Dehydrogenase 557 units/L (91-180) H 07/16/20 15:21 Troponin T 0.485 ng/mL (0.00-0.029) H* D 07/17/20 13:50 C-Reactive Protein 5.00 mg/dL (0.00-1.30) H 07/16/20 15:21 NT-Pro-B Natriuret Pep 96636 pg/mL (0-900) H 07/18/20 09:42 Total Protein 8.3 g/dL (6.3-8.2) H 07/17/20 08:19 Albumin 3.2 g/dL (3.9-5) L 07/17/20 08:19 Albumin/Globulin Ratio 0.6 % 07/17/20 08:19 Triglycerides 91 mg/dL (2-149) 07/16/20 15:21 Cholesterol 199 mg/dL (50-199) 07/16/20 15:21 LDL Cholesterol Direct 132 mg/dL (50-130) H 07/16/20 15:21 HDL Cholesterol 52 mg/dL (40-59) 07/16/20 15: Cholesterol/HDL Ratio 3.82 % 07/16/20 15:21 Procalcitonin 0.08 ng/mL (<0.15) 07/16/20 15:21 Arterial Blood Glucose 240 mg/dL (65-95) H 07/16/20 15:02 Arterial Blood Ionized Calcium 4.7 mg/dL (4.6-5.3) 07/16/20 15:02 Urine Color Yellow (Yellow) 07/17/20 09:52 Urine Turbidity Slightly-cloudy (Clear) 07/17/20 09:52 Urine pH 5.0 (5.0-7.0) 07/17/20 09:52 Ur Specific [place] 1.013 (1.003-1.030) 07/17/20 09:52 Urine Protein 100 mg/dl mg/dL (Negative) 07/17/20 09:52 Urine Glucose (UA) Neg mg/dL (Negative) 07/17/20 09:52 Urine Ketones Neg mg/dL (Negative) 07/17/20 09:52 Urine Blood Neg (Negative) 07/17/20 09:52 Urine Nitrite Neg (Negative) 07/17/20 09:52 Urine Bilirubin Neg (Negative) 07/17/20 09:52 Urine Urobilinogen < 2.0 mg/dL (<2.0) 07/17/20 09:52 Ur Leukocyte Esterase Neg (Negative) 07/17/20 09:52 Urine WBC (Auto) 1.0 /HPF (0.0-6.0) 07/17/20 09:52 Urine RBC (Auto) 2.0 /HPF (0.0-6.0) 07/17/20 09:52 U Epithel Cells (Auto) 12.0 /HPF (0-13.0) 07/17/20 09:52 Hyaline Casts 1 /LPF 07/17/20 09:52 Urine Mucus Few /HPF 07/17/20 09:52 Urine Yeast (Budding) 1+ /HPF 07/17/20 09:52 Urine Eosinophils None seen (None Seen) 07/17/20 17:50 Urine Creatinine 220.7 mg/dL (0.1-20.0) H 07/20/20 Unknown Urine Sodium 13 mmol/L 07/20/20 Unknown Fraction Sodium Excret 0.1 07/20/20 Unknown Complement C4 47 mg/dL (15-57) 07/17/20 13:50 Coronavirus (PCR) Negative (Negative) 07/16/20 09:10 Hepatitis A IgM Ab Non-reactive (NonReactive) 07/17/20 13:50 Hep Bs Antigen Non-reactive (Negative) 07/17/20 13:50 Hep B Core IgM Ab Non-reactive (NonReactive) 07/17/20 13:50 Hepatitis C Antibody Non-reactive (NonReactive) 07/17/20 13:50 Microbiology: Microbiology 07/16/20 15:21 Peripheral/Venous Blood Culture - Preliminary NO GROWTH AFTER 72 HOURS 07/16/20 15:21 Peripheral/Venous Blood Culture - Preliminary NO GROWTH AFTER 72 HOURS [place]/IV: Voiding Method External Female Catheter Active Medications - Current Medications Current Medications: Generic Name Dose Route Start Last Admin Trade Name Freq PRN Reason Stop Dose Admin Acetaminophen 650 mg 07/16/20 21:51 Acetaminophen 325 Mg Tab PO Q4H PRN Pain MILD(1-3)/Fever >100.5/LEE Albuterol 2.5 mg 07/17/20 08:41 Albuterol 2.5 Mg/3 Ml Nebu IH Q4HRT PRN Wheezing Albuterol/Ipratropium 1 ampul 07/17/20 14:00 07/20/20 08:56 Ipratropium/Albuterol Sulfate 3 Ml Ampul.Neb IH 1 ampul TIDRT LISA Administration Alprazolam 0.25 mg 07/18/20 15:21 07/18/20 22:59 Alprazolam 0.25 Mg Tab PO 0.25 mg Q6HR PRN Administration Anxiety Amitriptyline HCl 50 mg 07/17/20 22:00 07/19/20 22:31 Amitriptyline 25 Mg Tab PO 50 mg QHS LISA Administration Arformoterol Tartrate 15 mcg 07/17/20 20:00 07/20/20 08:56 Arformoterol 15 Mcg/2 Ml Nebu IH 15 mcg Q12HRT LISA Administration Aspirin 81 mg 07/18/20 14:00 07/20/20 09:11 Aspirin Ec 81 Mg Tab PO 81 mg QDAY LISA Administration Budesonide 0.5 mg 07/17/20 20:00 07/20/20 08:56 Budesonide 0.5 Mg/2 Ml Nebu IH 0.5 mg Q12HRT LISA Administration Carvedilol 6.25 mg 07/18/20 12:00 07/20/20 09:34 Carvedilol 6.25 Mg Tab PO Not Given BID LISA Clopidogrel Bisulfate 75 mg 07/19/20 10:00 07/20/20 09:12 Clopidogrel 75 Mg Tab PO 75 mg QDAY LISA Administration Famotidine 20 mg 07/18/20 10:00 07/20/20 09:12 Famotidine 20 Mg Tab PO 20 mg DAILY LISA Administration Heparin Sodium (Porcine) 5,000 unit 07/18/20 06:00 07/20/20 05:33 Heparin 5,000 Unit/1 Ml Vial SUB-Q 5,000 unit Q8HR LISA Administration Hydralazine HCl 25 mg 07/17/20 22:00 07/20/20 05:33 Hydralazine 25 Mg Tab PO 25 mg Q8HR LISA Administration Hydromorphone HCl 0.5 mg 07/16/20 21:51 07/17/20 22:28 Hydromorphone 1 Mg/1 Ml Inj IV 0.5 mg Q3H PRN Administration Pain , Severe (7-10) Milrinone Lactate/Dextrose 20 mg in 100 mls @ 15.581 mls/hr 07/18/20 11:00 07/20/20 12:18 Milrinone-D5w 20 Mg/100 Ml IV 07/22/20 10:59 0.375 mcg/kg/min DIRECT LISA 15.581 mls/hr Administration Protocol 0.375 MCG/KG/MIN Insulin Glargine 40 units 07/19/20 22:00 07/19/20 22:33 Insulin Glargine 100 Units/Ml SUB-Q 40 units QHS LISA Administration Insulin Human Lispro 0 unit 07/17/20 11:30 07/20/20 12:19 Insulin Lispro 100 Unit/Ml SUB-Q 8 unit ACHS LISA Administration Protocol Insulin Human Regular 10 units 07/20/20 11:30 07/20/20 12:19 Insulin Regular, Human 100 Units/1 Ml SUB-Q 10 units AC LISA Administration Isosorbide Dinitrate 10 mg 07/18/20 15:00 07/20/20 08:55 Isosorbide Dinitrate 10 Mg Tab PO Not Given TID LISA Metoclopramide HCl 10 mg 07/16/20 21:51 Metoclopramide 10 Mg/2 Ml Inj IV Q6H PRN Nausea And Vomiting Morphine Sulfate 2 mg 07/16/20 21:51 07/16/20 22:22 Morphine 2 Mg/1 Ml Inj IV 2 mg Q4H PRN Administration Pain, Moderate (4-6) Ondansetron HCl 4 mg 07/16/20 21:51 Ondansetron 4 Mg/2 Ml Inj IV Q3H PRN Nausea And Vomiting Prednisone 40 mg 07/19/20 10:00 07/20/20 09:12 Prednisone 20 Mg Tab PO 07/22/20 10:01 40 mg QDAY LISA Administration Sodium Chloride 10 ml 07/16/20 22:00 07/20/20 09:35 Sodium Chloride 0.9% 10 Ml Flush Syringe IV 10 ml BID LISA Administration Sodium Chloride 10 ml 07/16/20 21:51 Sodium Chloride 0.9% 10 Ml Flush Syringe IV PRN PRN LINE FLUSH Nutrition/Malnutrition Assess - Dietary Evaluation Nutrition/Malnutrition Findings: Nutrition Notes Start: 07/17/20 10:55 Freq: Status: Active Protocol: Document 07/20/20 12:04 AL (Rec: 07/20/20 12:19 AL [id number]) Co-Sign 07/20/20 12:04 LP Nutrition Notes Initial or Follow up Reassessment Current Diagnosis Acute Kidney Injury,Coronary Artery Disease,Diabetes, Hypertension,Heart Failure, Respiratory Failure Other Pertinent Diagnosis COPD exacerbation, SIRS, r/o COVID-19 Current Diet Cardiac/Consistent Carbohydrate Labs/Tests K 3.5 BUN 68 Cr 2.7 BG 440 A1C 7.5 Pertinent Medications Prednisone 40 mg Humulog Height 5 ft 2 in Weight 130.5 kg [place] Body Weight (kg) 50.00 BMI 52.6 Weight Status Morbidly Obese Subjective/Other Information F/U for intakes. Pt tolerating meals at 25% and states not eating well because appetite is not the same. Percent of energy/protein needs met: 21%/23% Burn Absent Trauma Absent Current % PO Poor (25-49%) Minimum of two criteria No #1 Nutrition Diagnosis Inadequate energy intake Comments: CHANGED Etiology breathing difficulties, appetite change As Evidenced by Signs and Symptoms pt tolerates 25% of meals PO Is patient on ventilator? No Is Patient Ambulatory and/or Out of Bed No REE-([facility]-confined to bed) 2127.252 Kcal/Kg value to use for calculation 13 Approximate Energy Requirements Using 1697 kcal/Kg Calculation Used for Recommendations Kcal/kg Additional Notes Pro needs: 90-108 g (1-1.2 g/ kg AdjBW: 90.25 kg) Fluid needs 1ml/kcal Nutrition Intervention Change Diet Order: Continue current order Add Supplement/Snack (indicate name/kcal Glucerna BID /protein ) Provides kCal: 440 Provides Protein (gm) 20 Goal #1 PO intake (diet + ONS) of meals to meet at least 75% energy and pro needs Anticipated Discharge Needs: CHO-controlled, heart-healthy diet Follow-Up By: 07/25/20 Additional Comments F/U intakes (diet + ONS).
[2020-07-20] MEDS ORDERED: predniSONE 20 MG TAB PO SCH (12:43)
[2020-07-20] MEDS: INSULIN REGULAR, HUMAN 100 UNITS/1 ML SUB-Q SCH (16:52)
[2020-07-20] MEDS: INSULIN GLARGINE 100 UNITS/ML SUB-Q SCH (21:42)
[2020-07-20] MEDS: AMITRIPTYLINE 25 MG TAB PO SCH (21:43)
[2020-07-21] MEDS: MILRINONE-D5W 20 MG/100 ML 20 MG/100 ML BAG IV SCH ×2 (00:20→06:07)
[2020-07-21] MEDS: HEPARIN 5,000 UNIT/1 ML VIAL SUB-Q SCH ×2 (06:07→13:45)
[2020-07-21] MEDS: hydrALAZINE 25 MG TAB PO SCH ×2 (06:07→13:45)
[2020-07-21 06:11] LABS: Hematocrit 31.2 % (30.3-42.9); Hemoglobin 10.1 gm/dl (10.1-14.3); Mean Corpuscular HGB Conc 32 % (30-34); Mean Corpuscular Volume 87 fl (79-97); Red Cell Distribution Width 15.2 % (13.2-15.2)
[2020-07-21 06:20] LABS: Platelet Count 215 K/mm3 (140-440)
--- NOTE | 2020-07-21 06:53 | Progress Note ---
Subjective Date of service: 07/21/20 Principal diagnosis: rita on ckd Interval history: Impression * Acute kidney injury * Hyperkalemia * Shortness of breath. Most likely secondary to CHF/COPD * Coronary artery disease. Status post bypass surgery * Hypertension * Diabetes * Morbid obesity * Cardiomyopathy. Ejection fraction 25 to 30% Recommendations * Her renal function is stable today * Suspect a possible prerenal /cardiorenal component. She may have a component of ATN as well * Patient's BNP is 34,000 and clinically she appears to be in CHF . Chest x-ray however did not show any acute findings * Patient is currently nonoliguric. * Her urine shows 2+ dipstick protein but no blood. She may have some degree of underlying chronic kidney disease * Renal ultrasound is normal * Hepatitis B and C both negative. Follow-up results of vasculitis work-up to rule out pulmonary renal syndrome as well * Hyperkalemia has improved * avoid nephrotoxins * Monitor fluid status and electrolytes closely * If patient renal function worsens or is refractory to diuresis, may need to consider renal replacement therapy Subjective Interval history: Patient appears comfortable today. States that her shortness of breath is improving. Currently on milrinone drip. Objective - General Appearance General appearance: well-developed, well-nourished, appears stated age, obese EENT: PERRL, mucous membranes moist Neck: no JVD, no thyromegaly Respiratory: Present: Wheezes (Bilateral wheezing) Cardiology: regular, normal heart rate Gastrointestinal: normal, normoactive bowel sounds Integumentary: other (1+ edema. Wrinkling of skin noted. Dressing noted in both feet) Objective - Vital Signs Vital signs: Vital Signs - 12hr 07/20/20 07/20/20 07/20/20 19:47 21:43 21:48 Temperature 97.8 F Pulse Rate 118 H 92 H 92 H Pulse Rate [ Posterior Bilateral Throughout] Respiratory 18 Rate Respiratory Rate [Posterior Bilateral Throughout] Blood Pressure 162/58 162/58 162/58 Blood Pressure [Left] O2 Sat by Pulse 98 Oximetry 07/20/20 07/20/20 07/20/20 21:49 21:50 22:00 Temperature Pulse Rate 111 H Pulse Rate [ 78 Posterior Bilateral Throughout] Respiratory Rate Respiratory 18 Rate [Posterior Bilateral Throughout] Blood Pressure Blood Pressure [Left] O2 Sat by Pulse 99 Oximetry 07/20/20 07/21/2007/21/21 23:00 00:03 06:05 Temperature 98.4 F 98 F Pulse Rate 119 H 64 Pulse Rate [ Posterior Bilateral Throughout] Respiratory 20 18 18 Rate Respiratory Rate [Posterior Bilateral Throughout] Blood Pressure 117/45 Blood Pressure 131/76 [Left] O2 Sat by Pulse 100 99 Oximetry - Lab 07/21/20 05:47 07/21/20 05:47 Most recent lab results ABG pH 7.283 (7.320-7.450) L 07/16/20 15:02 ABG O2 Saturation 99.3 (0-100) 07/16/20 15:02 Calcium 9.0 mg/dL (8.4-10.2) 07/21/20 05:47 Urine Creatinine 220.7 mg/dL (0.1-20.0) H 07/20/20 Unknown Urine Sodium 13 mmol/L 07/20/20 Unknown Medications & Allergies - Medications Allergies/Adverse Reactions: Allergies azithromycin Allergy (Verified 07/16/20 14:10) Unknown codeine Allergy (Verified 07/16/20 14:10) Unknown Sulfa (Sulfonamide Antibiotics) Allergy (Verified 07/16/20 14:11) Unknown Home Medications: Home Medications Medication Instructions Recorded Confirmed Last Taken Type Amitriptyline 25 mg PO DAILY 07/17/20 07/17/20 2 Days Ago History ~07/15/20 Furosemide [Lasix] 40 tab PO BID 07/17/20 07/17/20 07/15/20 History HCTZ 25 tab PO DAILY 07/17/20 07/17/20 07/15/20 History Lyrica 50 mg PO TID 07/17/20 07/17/20 07/15/20 History Rosuvastatin Calcium 40 mg PO HS 07/17/20 07/17/20 07/15/20 History cloNIDine-TTS PATCH [Catapres-Tts 0.1 mg TRANSDERMA TID 07/17/20 07/17/20 Unknown History 0.1MG Patch] hydrALAZINE 25 tab PO Q8H 07/17/20 07/17/20 07/16/20 History Active Medications: Generic Name Dose Route Start Last Admin Trade Name Freq PRN Reason Stop Dose Admin Acetaminophen 650 mg 07/16/20 21:51 Acetaminophen 325 Mg Tab PO Q4H PRN Pain MILD(1-3)/Fever >100.5/LEE Albuterol 2.5 mg 07/17/20 08:41 Albuterol 2.5 Mg/3 Ml Nebu IH Q4HRT PRN Wheezing Albuterol/Ipratropium 1 ampul 07/17/20 14:00 07/20/20 21:43 Ipratropium/Albuterol Sulfate 3 Ml Ampul.Neb IH 1 ampul TIDRT LISA Administration Alprazolam 0.25 mg 07/18/20 15:21 07/18/20 22:59 Alprazolam 0.25 Mg Tab PO 0.25 mg Q6HR PRN Administration Anxiety Amitriptyline HCl 50 mg 07/17/20 22:00 07/20/20 21:43 Amitriptyline 25 Mg Tab PO 50 mg QHS LISA Administration Arformoterol Tartrate 15 mcg 07/17/20 20:00 07/20/20 21:44 Arformoterol 15 Mcg/2 Ml Nebu IH 15 mcg Q12HRT LISA Administration Aspirin 81 mg 07/18/20 14:00 07/20/20 09:11 Aspirin Ec 81 Mg Tab PO 81 mg QDAY LISA Administration Budesonide 0.5 mg 07/17/20 20:00 07/20/20 21:44 Budesonide 0.5 Mg/2 Ml Nebu IH 0.5 mg Q12HRT LISA Administration Carvedilol 6.25 mg 07/18/20 12:00 07/20/20 21:43 Carvedilol 6.25 Mg Tab PO 6.25 mg BID LISA Administration Clopidogrel Bisulfate 75 mg 07/19/20 10:00 07/20/20 09:12 Clopidogrel 75 Mg Tab PO 75 mg QDAY LISA Administration Famotidine 20 mg 07/18/20 10:00 07/20/20 09:12 Famotidine 20 Mg Tab PO 20 mg DAILY LISA Administration Heparin Sodium (Porcine) 5,000 unit 07/18/20 06:00 07/21/20 06:07 Heparin 5,000 Unit/1 Ml Vial SUB-Q 5,000 unit Q8HR LISA Administration Hydralazine HCl 25 mg 07/17/20 22:00 07/21/20 06:07 Hydralazine 25 Mg Tab PO 25 mg Q8HR LISA Administration Hydromorphone HCl 0.5 mg 07/16/20 21:51 07/17/20 22:28 Hydromorphone 1 Mg/1 Ml Inj IV 0.5 mg Q3H PRN Administration Pain , Severe (7-10) Milrinone Lactate/Dextrose 20 mg in 100 mls @ 15.581 mls/hr 07/18/20 11:00 07/21/20 06:07 Milrinone-D5w 20 Mg/100 Ml IV 07/22/20 10:59 0.375 mcg/kg/min DIRECT LISA 15.581 mls/hr Administration Protocol 0.375 MCG/KG/MIN Insulin Glargine 40 units 07/19/20 22:00 07/20/20 21:42 Insulin Glargine 100 Units/Ml SUB-Q 40 units QHS LISA Administration Insulin Human Lispro 0 unit 07/17/20 11:30 07/20/20 21:44 Insulin Lispro 100 Unit/Ml SUB-Q Not Given ACHS LISA Protocol Insulin Human Regular 10 units 07/20/20 16:30 07/20/20 16:52 Insulin Regular, Human 100 Units/1 Ml SUB-Q 10 units AC LISA Administration Isosorbide Dinitrate 10 mg 07/18/20 15:00 07/20/20 21:48 Isosorbide Dinitrate 10 Mg Tab PO 10 mg TID LISA Administration Metoclopramide HCl 10 mg 07/16/20 21:51 Metoclopramide 10 Mg/2 Ml Inj IV Q6H PRN Nausea And Vomiting Morphine Sulfate 2 mg 07/16/20 21:51 07/16/20 22:22 Morphine 2 Mg/1 Ml Inj IV 2 mg Q4H PRN Administration Pain, Moderate (4-6) Ondansetron HCl 4 mg 07/16/20 21:51 Ondansetron 4 Mg/2 Ml Inj IV Q3H PRN Nausea And Vomiting Prednisone 20 mg 07/20/20 12:43 Prednisone 20 Mg Tab PO 07/22/20 10:01 QDAY LISA Sodium Chloride 10 ml 07/16/20 22:00 07/20/20 21:44 Sodium Chloride 0.9% 10 Ml Flush Syringe IV 10 ml BID LISA Administration Sodium Chloride 10 ml 07/16/20 21:51 Sodium Chloride 0.9% 10 Ml Flush Syringe IV PRN PRN LINE FLUSH
[2020-07-21] MEDS: ARFORMOTEROL 15 MCG/2 ML NEBU IH SCH (09:30)
[2020-07-21] MEDS: IPRATROPIUM/ALBUTEROL SULFATE 3 ML AMPUL.NEB IH SCH ×2 (09:30→13:29)
[2020-07-21] MEDS: BUDESONIDE 0.5 MG/2 ML NEBU IH SCH (09:30)
[2020-07-21] MEDS: ASPIRIN EC 81 MG TAB PO SCH (09:32)
[2020-07-21] MEDS: CLOPIDOGREL 75 MG TAB PO SCH (09:32)
[2020-07-21] MEDS: INSULIN LISPRO 100 UNIT/ML SUB-Q SCH ×3 (09:33→16:48)
[2020-07-21] MEDS: INSULIN REGULAR, HUMAN 100 UNITS/1 ML SUB-Q SCH ×3 (09:34→16:48)
[2020-07-21] MEDS: FAMOTIDINE 20 MG TAB PO SCH (09:36)
[2020-07-21] MEDS: carvediloL 6.25 MG TAB PO SCH (09:37)
[2020-07-21] MEDS: ISOSORBIDE DINITRATE 10 MG TAB PO SCH ×2 (09:38→13:45)
--- NOTE | 2020-07-21 10:04 | Discharge Summary ---
Providers - Providers Date of Admission: 07/16/20 19:47 Attending physician: STEPH CABRAL MD 07/16/20 21:51 Consult to Physician [CONS] Routine Comment: Consulting Provider: MCKENZIE AMARAL Physician Instructions: Reason For Exam: Acute respiratory failure with hypercapnia 07/17/20 06:28 Consult to Physician [CONS] Routine Comment: Consulting Provider: CARISA RUSSELL Physician Instructions: Reason For Exam: Elevated troponin 07/17/20 07:12 Consult to Physician [CONS] Routine Comment: Consulting Provider: TERRI BUSTILLOS Physician Instructions: Reason For Exam: esrd 07/17/20 10:00 Consult to Wound/ET Nurse [CONS] Routine Reason For Exam: wound eval 07/19/20 11:49 Physical Therapy Evaluation and Treat [CONS] Stat Comment: Reason For Exam: Deconditioning Primary care physician: ALEXX MIDDLETON MD Hospitalization Reason for admission: SHORTNESS OF BREATH Condition: Stable Hospital course: 74-year-old female with hypertension, type 2 diabetes, coronary artery disease, CHF, s/p CABG and morbid obesity presents with increasing shortness of breath for the last 2 days. Patient was brought in by EMS was given nebulizer treatments in the emergency transport. Patient denies cough. Patient is normally on 4 L nasal cannula oxygen at home. Refusing CPAP by EMS. Patient has also fever. Did not have Covid vaccine or Covid infection. Lives with her daughters. Patient also wheezing. No exacerbating or relieving factors. Patient also has a small sacral wound in the sacral region and the left foot. Low-grade fever present. Home medications are not listed. 07/17: Patient has been weaned down to nasal cannula 2L. Pulmonary, cardiology and nephrology consulted nephrology input is noted. We will downgrade the pat ient to IMCU we will continue current work-up we will give a full dose of Lovenox while further explored VQ scan to evaluate for pulmonary embolism. Elevated troponin could be secondary to poor renal clearance due to worsening renal function versus a true NSTEMI will await cardiology evaluation although in the setting of congestive heart failure this may also be the reason. Patient did receive some Lasix in the ED. Will wean down steroid therapy at this time. Per cardiology - will obtain Echo, will also defer diuretics to them. Strict I's and O's. DM- Start on insulin, with high dose humlin sliding scale and Lantus at night Down grade to IMC. If VQ scan shows no pulmonary embolism we will downgrade to heparin subcu. Discussed with family. Wound care has been consulted to review bilateral lower extremity wounds. We will speak to daughter to obtain further medical records. 07/18: Patient remains on 2 L of oxygen improving respiratory catalan Doppler of the lower extremity was negative patient refused a VQ scan. Discussed with crew attendant considering worsening renal function we will repeat chest x-ray this morning. Per crew attendant patient may be on the dry side considering impro vement in respiratory status. Based on the finding of the chest x-ray may consider giving back some fluids. We will continue to hold Lasix at this time. Mild hyperkalemia noted we will give a dose of Kayexalate. Blood sugar was noted to be significantly elevated adjusted insulin will monitor if improving patient can be transferred to telemetry. I also discussed with the daughter and updated her medical condition at this time. Continue wound care management for recent surgical procedure of the left foot. Weight loss counseling provided 07/19: Patient seen and examined respiratory status improving although still with tachycardia. While this is improving this may also be secondary to deconditioning. Renal function still elevated not yet down to baseline. Pat ient now on amiodarone drip to assist with management of congestive heart failure. Cardiology and renal and nephrology input noted. Will request out of bed to chair as per patient's request with funeral assistant. Echocardiogram reviewed EF 25 to 30%. Blood sugar still elevated will adjust insulin therapy for better control. Continue prednisone which could also be playing a role in elevated blood sugar will monitor closely. Wound care continue to monitor for left foot recent surgery. 07/20: Unfortunately renal function continues to worsen. Patient did not respond to lasix given yesterday, continues on mirilone with improvement in shortness of breath. BG still elevated, will wean steroids further down, add humlin 10 units with meal and recalculate based on need in am. 07/21: Clinically stable, renal function on the downward trend for creatnine, discussed with cardiology and crew attendant will discharge on 20mg of lasix and have outpatient follow up with cardiology and Vascular Ultrasound Technician for repeat labs. Patient will also need ischemic work up when renal function stable. Acute pulmonary edema NSTEMI Hx of CAD with 4 vessel coronary artery bypass at [place] noncompliant with cardiac follow up Chronic bilateral leg ulcers Acute respiratory failure with hypoxia and hypercapnia Current Visit: Yes Status: Acute Plan to address problem: Patient is hypoxic and hypercarbic. Patient is refusing CPAP but was convinced to keep the CPAP/BiPAP IV Solu-Medrol and IV antibiotics and duo nebs [id number] and as needed Intubation if necessary Impregnation Operator consult requested by Dr. Amaral SIRS (systemic inflammatory response syndrome) Current Visit: Yes Status: Acute Plan to address problem: Patient has fever tachypnea tachycardia. Consults systemic inflammatory response syndrome COPD with exacerbation Current Visit: Yes Status: Acute Plan to address problem: IV steroids Solu-Medrol 80 mg every 8 hours IV antibiotics and duo nebs [id number] and as needed. Continue CPAP Intubation if necessary Impregnation Operator consult requested Hypertension Current Visit: Yes Status: Chronic Qualifiers: Hypertension type: essential hypertension Qualified Code(s): I10 - Essential (primary) hypertension Plan to address problem: No home medications. Initial blood pressure was 131/100 later the blood pressure was 128/75 We will trend the blood pressure and start antihypertensives as necessary Suspected COVID-19 virus infection Current Visit: Yes Status: Acute Plan to address problem: Coronavirus PCR to be sent and was negative Type II diabetes mellitus Current Visit: Yes Status: Chronic Qualifiers: Diabetes mellitus penitentiary insulin use: unspecified penitentiary insulin use status Plan to address problem: No home medications Check hemoglobin A1c Coverage for now We will call the family and find out the home medication CHF (congestive heart failure) Current Visit: Yes Status: Acute Qualifiers: Heart failure type: combined systolic and diastolic Plan to address problem: BNP is in the 900s Echocardiogram Gentle hydration for 10 to 12 hours because of the ELMA ELMA (acute kidney injury) Current Visit: Yes Status: Acute Plan to address problem: Secondary to vasomotor nephropathy Gentle hydration for 12 hours only Recheck the creatinine level concerning for cardiorenal comppnet will need close follow up with renal Elevated troponin Current Visit: Yes Status: Acute Plan to address problem: Possible troponin leak We will get serial troponins Cardiology consult and echocardiogram requested for ejection fraction hyperkalemia Disposition: [id number]/[id number] HOME UNDER HOME HLTH Final Discharge Diagnosis (Prints w/discharge instructions): ACUTE SYSTOLIC AND DIASTOLIC HEART FAILURE Time spent for discharge: 35 MINS Core Measure Documentation - Palliative Care Palliative Care/ Comfort Measures: Not Applicable - Core Measures Any of the following diagnoses?: heart failure - Heart Failure Discharge Requirements KATELYNN/ARB for LVSD if EF <40%: No Reason for no KATELYNN/ARB: Renal impairment Beta matilde at discharge: Yes Exam - Physical Exam Narrative exam: General appearance: Present: well-nourished, morbidly obese, SITTING UP - EENT Eyes: Present: PERRL ENT: hearing intact, clear oral mucosa - Neck Neck: Present: supple, normal ROM - Respiratory Respiratory effort: Not labored Respiratory: bilateral: mild rhonchi, wheezing but some improvement - Cardiovascular Heart rate: 100 Rhythm: regular Heart Sounds: Present: S1 & S2. Absent: rub, click - Extremities Extremities: pulses symmetrical, No edema, abnormal (Stage I sacral decubitus ulcer. Left foot ulcer) Extremity abnormal: other (Stage I sacral decubitus ulcer, left foot ulcer) Peripheral Pulses: within normal limits - Abdominal General gastrointestinal: Present: soft, non-tender, non-distended, normal bowel sounds Female genitourinary: Present: normal - Integumentary Integumentary: Present: Skin hypopigmentation, dressing bilateral lower ext, dressing over the left foot following surgical procedure. - Musculoskeletal Musculoskeletal: gait normal, strength equal bilaterally - Psychiatric Psychiatric: appropriate mood/affect, intact judgment & insight - Neurologic Neurologic: CNII-XII intact, moves all extremities - Allied Health Allied health notes reviewed: nursing, case management - Constitutional Vitals: Temp Pulse Resp BP Pulse Ox 97.8 F 108 H 17 110/53 100 07/21/20 07:39 07/21/20 09:38 07/21/20 07:39 07/21/20 09:38 07/21/20 07:39 Plan Activity: advance as tolerated, fall precautions Diet: low salt, diabetic, renal Wound: per wound nurse instructions Special Instructions: restrict fluid intake to (1200CC/DAY), record daily weights, record daily BP diary, record blood sugar diary, physical therapy, occupational therapy, home oxygen via (nasal cannula @ 3 liters per minute), home health RN Plan of Treatment: REPEAT RENAL FUNCTION TEST WITH PRIMARY DOCTOR OR COOK HELPER MEAT IN 2-3 DAYS Follow up with: ALEXX MIDDLETON MD [Primary Care Provider] - 3-5 Days KINZA TOBAR MD [Staff Physician] - 7 Days CARISA RUSSELL MD [Staff Physician] - 7 Days MCKENZIE AMARAL MD [Staff Physician] - 7 Days Prescriptions: Insulin Glargine [Lantus VIAL] 40 units SUB-Q QHS #10 ml hydrALAZINE [Apresoline TAB] 25 mg PO Q8HR #90 tablet carvediloL [Coreg] 6.25 mg PO BID #60 tablet predniSONE [Deltasone] 20 mg PO QDAY #5 tablet glipiZIDE [Glucotrol] 5 mg PO QDAY #30 tablet Aspirin EC [Halfprin EC] 81 mg PO QDAY #30 tablet Isosorbide Dinitrate [Isordil] 10 mg PO TID #90 tablet Furosemide [Lasix] 20 mg PO QDAY #30 tablet Famotidine [Pepcid] 20 mg PO DAILY #30 tablet Clopidogrel [Plavix] 75 mg PO QDAY #30 tablet Budesonide/Formoterol Fumarate [Symbicort 80-4.5 Mcg Inhaler] 10.2 gm IH BID #1 [email or web address]
--- NOTE | 2020-07-21 11:19 | Progress Note ---
Assessment and Plan Acute pulmonary edema Acute systolic heart failure NSTEMI Hx of CAD with 4 vessel coronary artery bypass at [place] noncompliant with cardiac follow up Acute renal failure Morbid obesity Chronic bilateral leg ulcers Hypertension Diabetes An echocardiogram demonstrates a decrease left ventricular ejection fraction 25- 30%. Recommendations: Advised fluid restriction and low sodium diet. Will discontinue IV milrinone on discharge. Continue medical therapy for systolic heart failure and for coronary artery disease. Statin therapy held due to mild elevation of AST levels. Stable cardiac catalan with outpatient cardiac follow up in 1-2 weeks. Subjective Date of service: 07/21/20 Principal diagnosis: rita on ckd Interval history: No distress noted. Patient has no complaints. Wants to go home. Objective Vital Signs Temp Pulse Pulse Pulse Resp Resp BP 07/21/20 10:36 81 16 07/21/20 09:38 108 H 110/53 07/21/20 09:37 108 H 110/53 07/21/20 07:39 97.8 F 101 H 17 07/21/20 06:05 98 F 64 18 07/21/20 00:03 98.4 F 119 H 18 117/45 07/20/20 23:00 20 07/20/20 22:00 111 H 07/20/20 21:50 07/20/20 21:49 78 18 07/20/20 21:48 92 H 162/58 07/20/20 21:43 92 H 162/58 07/20/20 19:47 97.8 F 118 H 18 162/58 07/20/20 16:00 119 H 07/20/20 15:47 98.3 F 117 H 20 125/57 07/20/20 14:54 112 H 113/55 07/20/20 14:53 112 H 113/55 07/20/20 14:52 114 H 16 113/55 07/20/20 13:50 82 18 07/20/20 11:29 98.0 F 110 H 18 123/52 BP Pulse Ox 07/21/20 10:36 99 07/21/20 09:38 07/21/20 09:37 07/21/20 07:39 113/44 100 07/21/20 06:05 131/76 07/21/20 00:03 99 07/20/20 23:00 100 07/20/20 22:00 07/20/20 21:50 99 07/20/20 21:49 07/20/20 21:48 07/20/20 21:43 07/20/20 19:47 98 07/20/20 16:00 07/20/20 15:47 97 07/20/20 14:54 07/20/20 14:53 07/20/20 14:52 97 07/20/20 13:50 07/20/20 11:29 97 - Physical Examination General: No Apparent Distress, Other (obese) HEENT: Positive: PERRL Neck: Positive: neck supple Cardiac: Positive: Reg Rate and Rhythm Lungs: Positive: Decreased Breath Sounds Neuro: Positive: Weakness Skin: Positive: Other (Vitiligo) Extremities: Present: +1 Edema - Labs and Meds CBC 07/21/20 Range/Units 05:47 WBC 12.8 H (4.5-11.0) K/mm3 RBC 3.60 L (3.65-5.03) M/mm3 Hgb 10.1 (10.1-14.3) gm/dl Hct 31.2 (30.3-42.9) % Plt Count 215 (140-440) K/mm3 Comprehensive Metabolic Panel 07/21/20 Range/Units 05:47 Sodium 137 (137-145) mmol/L Potassium 3.8 (3.6-5.0) mmol/L Chloride 95.8 L (98-107) mmol/L Carbon Dioxide 30 (22-30) mmol/L BUN 71 H (7-17) mg/dL Creatinine 2.5 H (0.6-1.2) mg/dL Glucose 261 H (65-100) mg/dL Calcium 9.0 (8.4-10.2) mg/dL
--- NOTE | 2020-07-21 12:59 | Progress Note ---
Assessment and Plan 74 y/o female with acute respiratory failure, concern for new onset heart failure. 07/21/20: No objection to discharge from a pulm standpoint. 07/20/20: Continue supplemental O2. Arrange outpatient PSG. Will continue to follow. 07/19/20: Continue supplemental O2. Echo shows systolic heart failure but with worsening Cr, renal holding diuretics, now on inotropic therapy. 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 Will continue to follow. 1. Follow up echo 2. Bipap QHS, given patient body habitus, could have HANK 3. BP control 4. Monitor strict I/O Subjective Date of service: 07/21/20 Principal diagnosis: rita on ckd Interval history: No acute events. Being discharged today. Objective Vital Signs - 12hr 07/21/20 07/21/20 07/21/20 06:05 07:39 09:37 Temperature 98 F 97.8 F Pulse Rate 64 101 H 108 H Pulse Rate [ From Monitor] Respiratory 18 17 Rate Blood Pressure 110/53 Blood Pressure 131/76 113/44 [Left] O2 Sat by Pulse 100 Oximetry 07/21/20 07/21/20 07/21/20 09:38 10:36 11:34 Temperature 98.5 F Pulse Rate 108 H 110 H Pulse Rate [ 81 From Monitor] Respiratory 16 17 Rate Blood Pressure 110/53 Blood Pressure 114/51 [Left] O2 Sat by Pulse 99 98 Oximetry Constitutional: no acute distress, alert, other (morbidly obese) Eyes: non-icteric Effort: normal Ascultation: Bilateral: diminished breath sounds, rales Percussion: Bilateral: not dull Tactile fremitus: Bilateral: normal Cardiovascular: regular rate and rhythm Gastrointestinal: normoactive bowel sounds, soft CBC and BMP: 07/21/20 05:47 07/21/20 05:47 ABG, PT/INR, D-dimer: ABG ABG pH 7.283 (7.320-7.450) L 07/16/20 15:02 POC ABG pCO2 59.0 mmHg (32.0-48.0) H 07/16/20 15:02 POC ABG pO2 163.4 mmHg (83-108) H 07/16/20 15:02 POC ABG HCO3 27.3 07/16/20 15:02 ABG O2 Saturation 99.3 (0-100) 07/16/20 15:02 PT/INR, D-dimer D-Dimer 1508.10 ng/mlDDU (0-234) H 07/16/20 15:21 Abnormal lab findings: Abnormal Labs 07/16/20 07/16/20 07/16/20 15:02 15:21 15:21 WBC 11.6 H RBC RDW 15.7 H Lymph % (Auto) 8.1 L [place] % (Auto) 8.9 H Lymph # (Auto) 0.9 L [place] # (Auto) 1.0 H Seg Neutrophils % 79.7 H Seg Neutrophils # 9.2 H D-Dimer ABG pH 7.283 L POC ABG pCO2 59.0 H POC ABG pO2 163.4 H ABG Oxyhemoglobin 98.4 H ABG Glucose 240 H Sodium Potassium Chloride 96.8 L Carbon Dioxide BUN Creatinine 1.4 H Glucose 211 H POC Glucose Hemoglobin A1c Ferritin AST 80 H Lactate Dehydrogenase Troponin T 0.089 H C-Reactive Protein NT-Pro-B Natriuret Pep Total Protein Albumin 3.8 L LDL Cholesterol Direct 132 H Arterial Blood Glucose 240 H Urine Creatinine Complement C3 07/16/20 07/16/20 07/16/20 15:21 15:21 15:21 WBC RBC RDW Lymph % (Auto) [place] % (Auto) Lymph # (Auto) [place] # (Auto) Seg Neutrophils % Seg Neutrophils # D-Dimer 1508.10 H ABG pH POC ABG pCO2 POC ABG pO2 ABG Oxyhemoglobin ABG Glucose Sodium Potassium Chloride Carbon Dioxide BUN Creatinine Glucose POC Glucose Hemoglobin A1c Ferritin 459.2 H AST Lactate Dehydrogenase Troponin T C-Reactive Protein NT-Pro-B Natriuret Pep 904.1 H Total Protein Albumin LDL Cholesterol Direct Arterial Blood Glucose Urine Creatinine Complement C3 07/16/20 07/16/20 07/16/20 15:21 15:21 23:28 WBC RBC RDW Lymph % (Auto) [place] % (Auto) Lymph # (Auto) [place] # (Auto) Seg Neutrophils % Seg Neutrophils # D-Dimer ABG pH POC ABG pCO2 POC ABG pO2 ABG Oxyhemoglobin ABG Glucose Sodium Potassium Chloride Carbon Dioxide BUN Creatinine Glucose 223 H POC Glucose 286 H Hemoglobin A1c Ferritin 443.8 H AST Lactate Dehydrogenase 557 H Troponin T C-Reactive Protein 5.00 H NT-Pro-B Natriuret Pep Total Protein Albumin LDL Cholesterol Direct Arterial Blood Glucose Urine Creatinine Complement C3 07/17/20 07/17/20 07/17/20 05:21 08:19 08:19 WBC RBC RDW 15.7 H Lymph % (Auto) 7.1 L [place] % (Auto) Lymph # (Auto) 0.7 L [place] # (Auto) Seg Neutrophils % 88.6 H Seg Neutrophils # 9.2 H D-Dimer ABG pH POC ABG pCO2 POC ABG pO2 ABG Oxyhemoglobin ABG Glucose Sodium 136 L Potassium 5.9 H D Chloride 96.9 L Carbon Dioxide 21 L BUN 28 H Creatinine 1.8 H Glucose 350 H POC Glucose 306 H Hemoglobin A1c Ferritin AST 57 H Lactate Dehydrogenase Troponin T C-Reactive Protein NT-Pro-B Natriuret Pep Total Protein 8.3 H Albumin 3.2 L LDL Cholesterol Direct Arterial Blood Glucose Urine Creatinine Complement C3 07/17/20 07/17/20 07/17/20 08:19 08:19 08:33 WBC RBC RDW Lymph % (Auto) [place] % (Auto) Lymph # (Auto) [place] # (Auto) Seg Neutrophils % Seg Neutrophils # D-Dimer ABG pH POC ABG pCO2 POC ABG pO2 ABG Oxyhemoglobin ABG Glucose Sodium Potassium Chloride Carbon Dioxide BUN Creatinine Glucose POC Glucose 306 H Hemoglobin A1c 7.5 H Ferritin AST Lactate Dehydrogenase Troponin T 0.369 H* D C-Reactive Protein NT-Pro-B Natriuret Pep Total Protein Albumin LDL Cholesterol Direct Arterial Blood Glucose Urine Creatinine Complement C3 07/17/20 07/17/20 07/17/20 11:36 13:50 13:50 WBC RBC RDW Lymph % (Auto) [place] % (Auto) Lymph # (Auto) [place] # (Auto) Seg Neutrophils % Seg Neutrophils # D-Dimer ABG pH POC ABG pCO2 POC ABG pO2 ABG Oxyhemoglobin ABG Glucose Sodium Potassium Chloride 95.2 L Carbon Dioxide 21 L BUN 32 H Creatinine 2.2 H Glucose 348 H POC Glucose 321 H Hemoglobin A1c Ferritin AST Lactate Dehydrogenase Troponin T 0.485 H* D C-Reactive Protein NT-Pro-B Natriuret Pep Total Protein Albumin LDL Cholesterol Direct Arterial Blood Glucose Urine Creatinine Complement C3 07/17/20 07/17/20 07/17/20 13:50 16:03 21:37 WBC RBC RDW Lymph % (Auto) [place] % (Auto) Lymph # (Auto) [place] # (Auto) Seg Neutrophils % Seg Neutrophils # D-Dimer ABG pH POC ABG pCO2 POC ABG pO2 ABG Oxyhemoglobin ABG Glucose Sodium Potassium Chloride Carbon Dioxide BUN Creatinine Glucose POC Glucose 352 H 349 H Hemoglobin A1c Ferritin AST Lactate Dehydrogenase Troponin T C-Reactive Protein NT-Pro-B Natriuret Pep Total Protein Albumin LDL Cholesterol Direct Arterial Blood Glucose Urine Creatinine Complement C3 201 H 07/18/20 07/18/20 07/18/20 04:51 07:31 09:42 WBC RBC RDW Lymph % (Auto) [place] % (Auto) Lymph # (Auto) [place] # (Auto) Seg Neutrophils % Seg Neutrophils # D-Dimer ABG pH POC ABG pCO2 POC ABG pO2 ABG Oxyhemoglobin ABG Glucose Sodium 136 L Potassium 5.1 H Chloride 95.8 L Carbon Dioxide BUN 46 H Creatinine 2.1 H Glucose 464 H POC Glucose 500 H Hemoglobin A1c Ferritin AST Lactate Dehydrogenase Troponin T C-Reactive Protein NT-Pro-B Natriuret Pep 15365 H Total Protein Albumin LDL Cholesterol Direct Arterial Blood Glucose Urine Creatinine Complement C3 07/18/20 07/18/20 07/18/20 11:38 16:35 20:58 WBC RBC RDW Lymph % (Auto) [place] % (Auto) Lymph # (Auto) [place] # (Auto) Seg Neutrophils % Seg Neutrophils # D-Dimer ABG pH POC ABG pCO2 POC ABG pO2 ABG Oxyhemoglobin ABG Glucose Sodium Potassium Chloride Carbon Dioxide BUN Creatinine Glucose POC Glucose 464 H 569 H 534 H Hemoglobin A1c Ferritin AST Lactate Dehydrogenase Troponin T C-Reactive Protein NT-Pro-B Natriuret Pep Total Protein Albumin LDL Cholesterol Direct Arterial Blood Glucose Urine Creatinine Complement C3 07/19/20 07/19/20 07/19/20 07:34 07:49 12:14 WBC RBC RDW Lymph % (Auto) [place] % (Auto) Lymph # (Auto) [place] # (Auto) Seg Neutrophils % Seg Neutrophils # D-Dimer ABG pH POC ABG pCO2 POC ABG pO2 ABG Oxyhemoglobin ABG Glucose Sodium 136 L Potassium Chloride 94.9 L Carbon Dioxide BUN 59 H Creatinine 2.3 H Glucose 444 H POC Glucose 441 H 353 H Hemoglobin A1c Ferritin AST Lactate Dehydrogenase Troponin T C-Reactive Protein NT-Pro-B Natriuret Pep Total Protein Albumin LDL Cholesterol Direct Arterial Blood Glucose Urine Creatinine Complement C3 07/19/20 07/19/20 07/20/20 15:46 20:59 07:07 WBC RBC RDW Lymph % (Auto) [place] % (Auto) Lymph # (Auto) [place] # (Auto) Seg Neutrophils % Seg Neutrophils # D-Dimer ABG pH POC ABG pCO2 POC ABG pO2 ABG Oxyhemoglobin ABG Glucose Sodium Potassium 3.5 L Chloride 93.1 L Carbon Dioxide BUN 68 H Creatinine 2.7 H Glucose 450 H POC Glucose 341 H 389 H Hemoglobin A1c Ferritin AST Lactate Dehydrogenase Troponin T C-Reactive Protein NT-Pro-B Natriuret Pep Total Protein Albumin LDL Cholesterol Direct Arterial Blood Glucose Urine Creatinine Complement C3 07/20/20 07/20/20 07/20/20 07:07 08:04 11:27 WBC 13.3 H RBC RDW 15.5 H Lymph % (Auto) [place] % (Auto) Lymph # (Auto) [place] # (Auto) Seg Neutrophils % Seg Neutrophils # D-Dimer ABG pH POC ABG pCO2 POC ABG pO2 ABG Oxyhemoglobin ABG Glucose Sodium Potassium Chloride Carbon Dioxide BUN Creatinine Glucose POC Glucose 423 H 330 H Hemoglobin A1c Ferritin AST Lactate Dehydrogenase Troponin T C-Reactive Protein NT-Pro-B Natriuret Pep Total Protein Albumin LDL Cholesterol Direct Arterial Blood Glucose Urine Creatinine Complement C3 07/20/20 07/20/20 07/20/20 15:44 20:59 Unknown WBC RBC RDW Lymph % (Auto) [place] % (Auto) Lymph # (Auto) [place] # (Auto) Seg Neutrophils % Seg Neutrophils # D-Dimer ABG pH POC ABG pCO2 POC ABG pO2 ABG Oxyhemoglobin ABG Glucose Sodium Potassium Chloride Carbon Dioxide BUN Creatinine Glucose POC Glucose 166 H 108 H Hemoglobin A1c Ferritin AST Lactate Dehydrogenase Troponin T C-Reactive Protein NT-Pro-B Natriuret Pep Total Protein Albumin LDL Cholesterol Direct Arterial Blood Glucose Urine Creatinine 220.7 H Complement C3 07/21/20 07/21/20 07/21/20 05:47 05:47 09:17 WBC 12.8 H RBC 3.60 L RDW Lymph % (Auto) [place] % (Auto) Lymph # (Auto) [place] # (Auto) Seg Neutrophils % Seg Neutrophils # D-Dimer ABG pH POC ABG pCO2 POC ABG pO2 ABG Oxyhemoglobin ABG Glucose Sodium Potassium Chloride 95.8 L Carbon Dioxide BUN 71 H Creatinine 2.5 H Glucose 261 H POC Glucose 292 H Hemoglobin A1c Ferritin AST Lactate Dehydrogenase Troponin T C-Reactive Protein NT-Pro-B Natriuret Pep Total Protein Albumin LDL Cholesterol Direct Arterial Blood Glucose Urine Creatinine Complement C3 07/21/20 11:28 WBC RBC RDW Lymph % (Auto) [place] % (Auto) Lymph # (Auto) [place] # (Auto) Seg Neutrophils % Seg Neutrophils # D-Dimer ABG pH POC ABG pCO2 POC ABG pO2 ABG Oxyhemoglobin ABG Glucose Sodium Potassium Chloride Carbon Dioxide BUN Creatinine Glucose POC Glucose 288 H Hemoglobin A1c Ferritin AST Lactate Dehydrogenase Troponin T C-Reactive Protein NT-Pro-B Natriuret Pep Total Protein Albumin LDL Cholesterol Direct Arterial Blood Glucose Urine Creatinine Complement C3
[2020-07-21 13:46] VITALS: BP 127/51
[2020-07-22 05:56] LABS: Albumin 3.3 g/dL (3.8-4.8); Gamma Globulin 1.6 g/dL (0.8-1.7)
[2020-07-23 12:41] LABS: ANA Screen, IFA Positive (Negative)
[2020-07-25 16:59] LABS: Myeloperoxidase Antibody <1.0 AI (<1.0)
== END 2020-07-21 18:17 | disposition home or self-care (01) | DRG 280 ==
LOC: ED 14:05 → CC1 19:47 → 4A 07-18 21:08
PROVIDERS: ADMIT Internal Medicine; ATTEND Internal Medicine
PROC: 4A033R1 Measurement of Arterial Saturation, Peripheral, Percutaneous Approach (ICD-10-PCS; principal; 2020-07-16)
PROC: 5A09457 Assistance with Respiratory Ventilation, 24-96 Consecutive Hours, Continuous Positive Airway Pressure (ICD-10-PCS; 2020-07-16)
DX: I13.0 Hypertensive heart and chronic kidney disease with heart failure and stage 1 through stage 4 chronic kidney disease, or unspecified chronic kidney disease (principal); N17.0 Acute kidney failure with tubular necrosis; I21.4 Non-ST elevation (NSTEMI) myocardial infarction; J96.02 Acute respiratory failure with hypercapnia; J18.9 Pneumonia, unspecified organism; I50.41 Acute combined systolic (congestive) and diastolic (congestive) heart failure; J44.1 Chronic obstructive pulmonary disease with (acute) exacerbation; R65.10 Systemic inflammatory response syndrome (SIRS) of non-infectious origin without acute organ dysfunction; J44.0 Chronic obstructive pulmonary disease with (acute) lower respiratory infection; I42.9 Cardiomyopathy, unspecified; Z20.822 Contact with and (suspected) exposure to COVID-19; E66.01 Morbid (severe) obesity due to excess calories; I25.10 Atherosclerotic heart disease of native coronary artery without angina pectoris; L89.899 Pressure ulcer of other site, unspecified stage; E87.5 Hyperkalemia; E11.22 Type 2 diabetes mellitus with diabetic chronic kidney disease; R79.89 Other specified abnormal findings of blood chemistry; J45.909 Unspecified asthma, uncomplicated; Z88.1 Allergy status to other antibiotic agents; Z88.8 Allergy status to other drugs, medicaments and biological substances; Z88.2 Allergy status to sulfonamides; Z79.899 Other long term (current) drug therapy; Z79.891 Long term (current) use of opiate analgesic; Z71.3 Dietary counseling and surveillance; Z79.01 Long term (current) use of anticoagulants; Z79.4 Long term (current) use of insulin; Z95.1 Presence of aortocoronary bypass graft; Z82.49 Family history of ischemic heart disease and other diseases of the circulatory system
CPT/HCPCS: 36415; 71045; 76770; 80048; 80053; 80061; 80074; 81001; 82570; 82728; 82805; 82947; 82962; 83036; 83615; 83880; 84145; 84165; 84300; 84484; 85025; 85027; 85379; 86021; 86038; 86140; 86160; 86225; 87040; 89050; 93005; 93306; 93970; 94640; 94660; 96365; 96367; 96375; G0378; J0696; J1100; J1170; J1644; J1650; J1815; J1940; J1956; J2060; J2260; J2270; J2930; J3475; J7030; J7512; U0003